=== PATIENT | female | born 1960 | race Caucasian/White ===

== ENCOUNTER → 2017-08-11 | Outpatient (CLI) | payer BC ==
--- NOTE | 2017-08-11 17:55 | US ---
EXAMINATION TYPE: US extremity nonvasculr ltd RT DATE OF EXAM: 08/11/2017 COMPARISON: NONE CLINICAL HISTORY: M71.21 Bakers Cyst, Rt Knee. Intermittent right popliteal fossa pain x multiple yea rs Right pop fossa: appears wnl, no Good's cyst seen at this time IMPRESSION: There is no evidence of a popliteal cyst or any other solid or cystic mass in the poplit eal fossa. The popliteal vein is patent.
== END | disposition home or self-care (01) ==
LOC: RADUSMAIN 16:56
PROVIDERS: ATTEND Family Medicine
DX: M71.21 Synovial cyst of popliteal space [Baker], right knee (principal)

== ENCOUNTER 2021-05-10 13:38 | Emergency (ER) | payer BC, OTHER ==
[2021-05-10 16:39] VITALS: BP 120/82; RESP 16; TEMP 98
--- NOTE | 2021-05-10 17:05 | XR ---
EXAMINATION TYPE: XR wrist complete RT DATE OF EXAM: 05/10/2021 CLINICAL HISTORY: Pain TECHNIQUE: Frontal, lateral and oblique images of the right wrist are obtained. COMPARISON: None FINDINGS: There is a transverse fracture of the distal radius with intra-articular extension and fore shortening. There is circumferential soft tissue swelling of the wrist. IMPRESSION: Transverse fracture of the distal radius with intra-articular extension and foreshortened .
[2021-05-10] MEDS ORDERED: KETOROLAC 30 MG/ML 1 ML VIAL IM STA (19:12)
[2021-05-10] MEDS ORDERED: ACET/COD 300 MG/30 MG STARTER PACK 6 TAB BTL PO STA (19:12)
[2021-05-10] MEDS ORDERED: BUPIVACAINE (PF) 0.5% 30 ML VIAL SQ STA (19:12)
[2021-05-10] MEDS ORDERED: LIDOCAINE 1% INJ 10MG/ML (20 ML MDV) SQ ONE (19:12)
--- NOTE | 2021-05-10 19:16 | ED ---
Upper Extremity HPI - General Chief Complaint: Extremity Injury, Upper Stated Complaint: Head & wrist injury, [facility] Time Seen by Provider: 05/10/21 18:59 Source: patient Mode of arrival: ambulatory Limitations: no limitations - History of Present Illness Initial Comments: 60 year-old female patient presents to the emergency department for evaluation of right wrist pain. Patient states she fell at work, she believes on an outstretched hand. States she did hit her head. Denies any loss of consciousness, headache, vomiting, or visual changes. Denies any neck or back pain. Denies any other injuries. Has not taken any pain medications. - Related Data Home Medications Medication Instructions Recorded Confirmed Levothyroxine Sodium [Synthroid] 75 mcg PO DAILY 05/10/21 05/10/21 Metoprolol Succinate (ER) [Toprol 25 mg PO DAILY 05/10/21 05/10/21 Xl] amLODIPine [Norvasc] 10 mg PO DAILY 05/10/21 05/10/21 Previous Rx's Medication Instructions Recorded Acetaminophen-Codeine 300-30mg 1 tab PO Q6H PRN #12 tablet 05/10/21 [Tylenol #3] Ibuprofen [Motrin] 600 mg PO Q8HR PRN #30 tab 05/10/21 Allergies Allergy/AdvReac Type Severity Reaction Status Date / Time Penicillins AdvReac Vomiting Verified 05/10/21 20:06 Review of Systems ROS Statement: Those systems with pertinent positive or pertinent negative responses have been documented in the HPI. ROS Other: All systems not noted in ROS Statement are negative. Past Medical History Past Medical History: Hypertension, Thyroid Disorder History of Any Multi-Drug Resistant Organisms: None Reported Past Surgical History: Orthopedic Surgery Past Psychological History: No Psychological Hx Reported Smoking Status: Current every day smoker Past Alcohol Use History: Daily Past Drug Use History: None Reported General Exam Limitations: no limitations General appearance: alert, in no apparent distress, other (This is a well- developed, well-nourished adult female in no acute distress.) Head exam: Present: atraumatic, normocephalic, normal inspection Eye exam: Present: normal appearance, PERRL, EOMI. Absent: scleral icterus, conjunctival injection, periorbital swelling ENT exam: Present: normal exam, normal oropharynx, mucous membranes moist Neck exam: Present: normal inspection, full ROM, other (Nontender, no step-off, no deformity to firm midline palpation of the posterior cervical spine. Full range of motion without pain or limitation.). Absent: tenderness, meningismus, lymphadenopathy Respiratory exam: Present: normal lung sounds bilaterally. Absent: respiratory distress, wheezes, rales, rhonchi, stridor Cardiovascular Exam: Present: regular rate, normal rhythm, normal heart sounds. Absent: systolic murmur, diastolic murmur, rubs, gallop, clicks Extremities exam: Present: tenderness (Distal radius and ulna), normal capillary refill, other (Soft tissue swelling over the distal radius and ulna. Limited range of motion due to pain. Radial pulses 2+. Skin is pink, warm, dry. Cap refill less than 3 seconds. The). Absent: normal inspection, full ROM, pedal edema, joint swelling, calf tenderness Back exam: Present: normal inspection, other (Nontender, no step-off, no deformity to firm midline palpation of the thoracic and lumbar vertebrae. Full range of motion without pain or limitation.). Absent: vertebral tenderness Neurological exam: Present: alert, oriented X3, CN II-XII intact Psychiatric exam: Present: normal affect, normal mood Skin exam: Present: warm, dry, intact, normal color. Absent: rash Course Vital Signs 05/10/21 05/10/21 16:36 20:17 Temperature 98 F Pulse Rate 78 88 Respiratory 16 16 Rate Blood Pressure 120/82 O2 Sat by Pulse 95 98 Oximetry Procedures - Orthopedic Fracture Reduction Fracture #1 Consent Obtained: verbal consent Side: right Fracture Reduction Location: radius Analgesia: hematoma block Technique: direct manipulation Post Reduction X-rays Demonstrate: acceptable reduction Post-Reduction Neuro Exam: intact, no change Post-Reduction Vascular Exam: intact, no change Splint Applied: Yes Patient Tolerated Procedure: well, no complications - Orthopedic Splinting/Casting Injury #1 Side: right Upper Extremity Injury Location: short arm, wrist Upper Extremity Immobilizer: sugar tong splint, Maykel wrap, synthetic pre-padded splint Medical Decision Making - Medical Decision Making 60-year-old female patient presents for evaluation of right wrist pain after a fall. Physical examination did reveal soft tissue swelling and tenderness over the wrist. Neurovascular status was intact. X-rays were obtained and showed evidence for a mildly displaced distal radius fracture. Hematoma block was performed, direct manipulation to reduce the fracture. Patient did have some pain with this. Sugar tong splint was applied, sling given. She will be discharged home to follow-up with talent management specialist for further evaluation as soon as possible. She is given pain medication. Return parameters were discussed in detail. She verbalizes understanding and agrees with this plan. Case discussed with my attending Dr. Romero. - Radiology Data Radiology results: report reviewed, image reviewed Three-view x-ray of the right wrist are obtained. Report was reviewed in its entirety. Impression by Dr. Mathew Roberts shows transverse fracture of the distal radius with intra-articular extension and foreshortened. 2 views of the right wrist are obtained for postreduction purposes. Report was reviewed in its entirety. Impression by Dr. Carmona shows improved alignment of mildly displaced distal radial metaphyseal fracture, now in cast. Disposition Clinical Impression: Fracture of right distal radius Disposition: HOME SELF-CARE Condition: Good Instructions (If sedation given, give patient instructions): Wrist Fracture in Adults (ED), Splint Care (ED) Additional Instructions: Leave splint in place until follow-up with orthopedics. Use sling for comfort and support. Take medications as directed. Follow-up with her primary care physician for recheck in 1-2 days. Follow up with orthopedic physician as soon possible for further evaluation. Return for any new, worsening, or concerning symptoms. Prescriptions: Ibuprofen [Motrin] 600 mg PO Q8HR PRN #30 tab PRN Reason: Pain Acetaminophen-Codeine 300-30mg [Tylenol #3] 1 tab PO Q6H PRN #12 tablet PRN Reason: Pain Is patient prescribed a controlled substance at d/c from ED?: Yes When asked, does pt state using other controlled substances?: No If prescribed controlled substance>3 days was MAPS reviewed?: Prescribed <3 Days If opioid is for acute pain is fill amount 7 days or less?: Yes If Rx opioid, was Start Talking consent form obtained?: Yes Referrals: Roxi Morris DO [Primary Care Provider] - 1-2 days Bjorn Gasca MD [Medical Doctor] - 1-2 days Time of Disposition: 19:52
--- NOTE | 2021-05-10 20:06 | XR ---
EXAMINATION TYPE: XR wrist limited RT DATE OF EXAM: 05/10/2021 CLINICAL HISTORY: Wrist fracture . TECHNIQUE: Frontal, lateral and oblique images of the right wrist are obtained. COMPARISON: Knee radiograph FINDINGS: Overlying cast material obscures fine bony detail. There is improved alignment of a mildly displaced distal radial metaphyseal fracture. IMPRESSION: Improved alignment of mildly displaced distal radial metaphyseal fracture, now in cast.
[2021-05-10 20:17] VITALS: PULSE 88
== END 2021-05-10 20:17 | disposition home or self-care (01) ==
LOC: EC 13:38
DX: S52.591A Other fractures of lower end of right radius, initial encounter for closed fracture (principal); I10 Essential (primary) hypertension; E07.9 Disorder of thyroid, unspecified; F17.200 Nicotine dependence, unspecified, uncomplicated; Z79.890 Hormone replacement therapy; Z88.0 Allergy status to penicillin; Z79.899 Other long term (current) drug therapy; W19.XXXA Unspecified fall, initial encounter; Y92.69 Other specified industrial and construction area as the place of occurrence of the external cause; Y99.0 Civilian activity done for income or pay
CPT/HCPCS: 73100; 73110; 99283; 96372; 25605; J2001; J1885

== ENCOUNTER 2021-10-18 10:34 | Inpatient (IN) | payer BC ==
[2021-10-18] MEDS ORDERED: NITROGLYCERIN SL TABS 0.4 MG TAB SUBLINGUAL STA ×3 (11:04)
[2021-10-18] MEDS ORDERED: ASPIRIN 81 MG PO STA (11:04)
--- NOTE | 2021-10-18 11:07 | ED ---
General Adult HPI - General Chief complaint: Chest Pain Stated complaint: chest pain x1 wk Time Seen by Provider: 10/18/21 10:51 Source: patient, RN notes reviewed Mode of arrival: ambulatory Limitations: no limitations - History of Present Illness Initial comments: Patient is a pleasant [age]-year-old female presenting to the emergency Department with chest discomfort. Symptoms have been occurring for the past week. Patient did have a syncopal episode a few days prior to onset of symptoms. Discomfort feels like pressure. Symptoms do worsen with exertion. Patient does have some associated shortness of breath. No sweating. Mild nausea. Discomfort is somewhat severe at this point. No history of chronic similar symptoms. No leg pain or leg swelling. No back pain. - Related Data Home Medications Medication Instructions Recorded Confirmed Levothyroxine Sodium [Synthroid] 75 mcg PO DAILY 05/10/21 10/18/21 Metoprolol Succinate (ER) [Toprol 25 mg PO DAILY 05/10/21 10/18/21 Xl] amLODIPine [Norvasc] 10 mg PO DAILY 05/10/21 10/18/21 Aspirin EC [Ecotrin Low Dose] 81 mg PO DAILY 10/18/21 10/18/21 Allergies Allergy/AdvReac Type Severity Reaction Status Date / Time Penicillins AdvReac Vomiting Verified 10/18/21 12:09 Review of Systems ROS Statement: Those systems with pertinent positive or pertinent negative responses have been documented in the HPI. ROS Other: All systems not noted in ROS Statement are negative. Constitutional: Denies: fever Eyes: Denies: eye pain ENT: Denies: ear pain Respiratory: Reports: as per HPI, dyspnea. Denies: cough Cardiovascular: Reports: as per HPI, chest pain Endocrine: Reports: fatigue Gastrointestinal: Denies: abdominal pain, vomiting Genitourinary: Denies: dysuria Musculoskeletal: Denies: back pain Skin: Denies: rash Neurological: Denies: confusion Past Medical History Past Medical History: Hypertension, Thyroid Disorder History of Any Multi-Drug Resistant Organisms: None Reported Past Surgical History: Orthopedic Surgery Past Psychological History: No Psychological Hx Reported Smoking Status: Current every day smoker Past Alcohol Use History: Daily Past Drug Use History: None Reported General Exam Limitations: no limitations General appearance: alert, in no apparent distress Head exam: Present: normocephalic Eye exam: Present: normal appearance Neck exam: Present: normal inspection Respiratory exam: Present: normal lung sounds bilaterally. Absent: chest wall tenderness Cardiovascular Exam: Present: regular rate, normal rhythm Expanded Peripheral pulses: 2+: Radial (R), Radial (L), Dorsalis Pedis (R), Dorsalis Pedis (L) GI/Abdominal exam: Present: soft. Absent: tenderness Extremities exam: Present: normal inspection. Absent: pedal edema, calf tenderness Neurological exam: Present: alert Psychiatric exam: Present: normal affect, normal mood Skin exam: Present: normal color Course Vital Signs 10/18/21 10/18/21 10:46 11:10 Temperature 98.1 F Pulse Rate 88 77 Respiratory 18 16 Rate Blood Pressure 117/76 124/84 O2 Sat by Pulse 94 L 98 Oximetry EKG Findings - EKG Comments: EKG Findings:: Sinus rhythm with rate of 84. GA 185. QRS 92. QT 383. QTC 423. Left axis. Incomplete right bundle-branch block. Inferior T wave inversions. She is inversions V3 through V5 as well with downward QRS Medical Decision Making - Medical Decision Making Patient reevaluated and still having discomfort. Case discussed with Dr. Natali carreon, who will admit for Dr. Morris. - Lab Data Result diagrams: 10/18/21 11:09 10/18/21 12:14 Lab Results 10/18/21 10/18/21 10/18/21 Range/Units 11:09 11:09 11:09 WBC 7.2 (3.8-10.6) k/uL RBC 4.92 (3.80-5.40) m/uL Hgb 16.9 H (11.4-16.0) gm/dL Hct 52.7 H (34.0-46.0) % MCV 107.2 H (80.0-100.0) fL MCH 34.4 (25.0-35.0) pg MCHC 32.1 (31.0-37.0) g/dL RDW 14.1 (11.5-15.5) % Plt Count 224 (150-450) k/uL MPV 7.4 Neutrophils % 76 % Lymphocytes % 14 % Monocytes % 6 % Eosinophils % 2 % Basophils % 1 % Neutrophils # 5.5 (1.3-7.7) k/uL Lymphocytes # 1.0 (1.0-4.8) k/uL Monocytes # 0.4 (0-1.0) k/uL Eosinophils # 0.1 (0-0.7) k/uL Basophils # 0.1 (0-0.2) k/uL Macrocytosis Moderate PT 11.0 (9.0-12.0) sec INR 1.0 (<1.2) APTT 24.1 (22.0-30.0) sec D-Dimer 0.43 (<0.60) mg/L FEU Sodium (137-145) mmol/L Potassium (3.5-5.1) mmol/L Chloride (98-107) mmol/L Carbon Dioxide (22-30) mmol/L Anion Gap mmol/L BUN (7-17) mg/dL Creatinine (0.52-1.04) mg/dL Est GFR (CKD-EPI)AfAm (>60 ml/min/1.73 sqM) Est GFR (CKD-EPI)NonAf (>60 ml/min/1.73 sqM) Glucose (74-99) mg/dL Calcium (8.4-10.2) mg/dL Magnesium (1.6-2.3) mg/dL Total Bilirubin (0.2-1.3) mg/dL AST (14-36) U/L ALT (4-34) U/L Alkaline Phosphatase (38-126) U/L Troponin I (0.000-0.034) ng/mL NT-Pro-B Natriuret Pep 66 pg/mL Total Protein (6.3-8.2) g/dL Albumin (3.5-5.0) g/dL Amylase (30-110) U/L Lipase (23-300) U/L 10/18/21 10/18/21 Range/Units 12:14 12:14 WBC (3.8-10.6) k/uL RBC (3.80-5.40) m/uL Hgb (11.4-16.0) gm/dL Hct (34.0-46.0) % MCV (80.0-100.0) fL MCH (25.0-35.0) pg MCHC (31.0-37.0) g/dL RDW (11.5-15.5) % Plt Count (150-450) k/uL MPV Neutrophils % % Lymphocytes % % Monocytes % % Eosinophils % % Basophils % % Neutrophils # (1.3-7.7) k/uL Lymphocytes # (1.0-4.8) k/uL Monocytes # (0-1.0) k/uL Eosinophils # (0-0.7) k/uL Basophils # (0-0.2) k/uL Macrocytosis PT (9.0-12.0) sec INR (<1.2) APTT (22.0-30.0) sec D-Dimer (<0.60) mg/L FEU Sodium 139 (137-145) mmol/L Potassium 4.2 (3.5-5.1) mmol/L Chloride 109 H (98-107) mmol/L Carbon Dioxide 27 (22-30) mmol/L Anion Gap 3 mmol/L BUN 9 (7-17) mg/dL Creatinine 0.44 L (0.52-1.04) mg/dL Est GFR (CKD-EPI)AfAm >90 (>60 ml/min/1.73 sqM) Est GFR (CKD-EPI)NonAf >90 (>60 ml/min/1.73 sqM) Glucose 100 H (74-99) mg/dL Calcium 8.3 L (8.4-10.2) mg/dL Magnesium 2.0 (1.6-2.3) mg/dL Total Bilirubin 0.8 (0.2-1.3) mg/dL AST 75 H (14-36) U/L ALT 66 H (4-34) U/L Alkaline Phosphatase 91 (38-126) U/L Troponin I 0.013 (0.000-0.034) ng/mL NT-Pro-B Natriuret Pep pg/mL Total Protein 6.3 (6.3-8.2) g/dL Albumin 3.6 (3.5-5.0) g/dL Amylase 42 (30-110) U/L Lipase 73 (23-300) U/L Disposition Clinical Impression: Chest pain Disposition: ADMITTED IP TO THIS HOSP Is patient prescribed a controlled substance at d/c from ED?: No Referrals: Roxi Morris DO [Primary Care Provider] - 1-2 days Time of Disposition: 13:57
--- NOTE | 2021-10-18 11:22 | XR ---
EXAMINATION TYPE: XR chest 2V DATE OF EXAM: 10/18/2021 COMPARISON: NONE HISTORY: Chest pain and shortness of breath for one week. TECHNIQUE: Frontal and lateral views of the chest are obtained. FINDINGS: There is no suspicious focal air space opacity, pleural effusion, or pneumothorax seen. T he cardiac silhouette size is upper limits of normal. The osseous structures are intact. Overlying EKG leads. IMPRESSION: No acute process.
[2021-10-18 11:28] LABS: Basophils # (A) 0.1 k/uL (0-0.2); Basophils % (A) 1 %; Eosinophils # (A) 0.1 k/uL (0-0.7); Eosinophils % (A) 2 %; HCT 52.7 % (34.0-46.0); HGB 16.9 gm/dL (11.4-16.0); Lymphocytes % (A) 14 %; MCH 34.4 pg (25.0-35.0); MCHC 32.1 g/dL (31.0-37.0); MCV 107.2 fL (80.0-100.0); Macrocytosis Moderate; Mean Platelet Volume 7.4; Monocytes # (A) 0.4 k/uL (0-1.0); Monocytes % (A) 6 %; Neutrophils # (A) 5.5 k/uL (1.3-7.7); Neutrophils % (A) 76 %; Platelet Count 224 k/uL (150-450); RBC 4.92 m/uL (3.80-5.40); RDW 14.1 % (11.5-15.5); WBC 7.2 k/uL (3.8-10.6)
[2021-10-18 11:44] LABS: Partial Thromboplastin Time 24.1 sec (22.0-30.0)
[2021-10-18 12:47] LABS: ALT 66 U/L (4-34); AST 75 U/L (14-36); African American GFR (CKD) >90 (>60 ml/min/1.73 sqM); Albumin 3.6 g/dL (3.5-5.0); Alkaline Phosphatase 91 U/L (38-126); Amylase 42 U/L (30-110); Anion Gap 3 mmol/L; Blood Urea Nitrogen 9 mg/dL (7-17); Calcium 8.3 mg/dL (8.4-10.2); Carbon Dioxide 27 mmol/L (22-30); Chloride 109 mmol/L (98-107); Glucose 100 mg/dL (74-99); Lipase 73 U/L (23-300); Non-African American GFR(CKD) >90 (>60 ml/min/1.73 sqM); Sodium 139 mmol/L (137-145); Total Bilirubin 0.8 mg/dL (0.2-1.3); Total Protein 6.3 g/dL (6.3-8.2)
[2021-10-18 13:05] LABS: Potassium 4.2 mmol/L (3.5-5.1)
[2021-10-18] MEDS ORDERED: MORPHINE SULFATE 4 MG/ML SYRINGE IVP STA (13:58)
[2021-10-18] MEDS ORDERED: NITROGLYCERIN SL TABS 0.4 MG TAB SUBLINGUAL PRN (13:58)
[2021-10-18] MEDS: NITROGLYCERIN OINT 1 INCH/GM PACKET TOPICAL SCH ×2 (18:58→23:51)
[2021-10-19] MEDS: NITROGLYCERIN OINT 1 INCH/GM PACKET TOPICAL SCH (05:33)
[2021-10-19] MEDS ORDERED: CAFFEINE CITRATE 60 MG/3 ML VIAL IV PRN (08:09)
[2021-10-19] MEDS ORDERED: REGADENOSON 0.4 MG/5 ML SYRINGE IV PRN (08:09)
[2021-10-19] MEDS ORDERED: AMINOPHYLLINE 500 MG/20 ML VIAL IV PRN (08:09)
[2021-10-19] MEDS ORDERED: ASPIRIN 325 MG TAB PO SCH (09:00)
--- NOTE | 2021-10-19 09:03 | P.CRDCN ---
History of Present Illness Consult date: 10/19/21 History of present illness: HISTORY OF PRESENT ILLNESS: This is a 61-year-old female with a past medical history significant for hypertension and hypothyroidism. Patient does not follow with a manager educational. We have been asked to see the patient in consultation for chest pain. Patient examined at the bedside. Patient states she presented to the hospital secondary to her whole body feeling numb. She states that this started in her mouth and then spread throughout her entire body. She also reports feeling chest pressure, dizziness, and diaphoresis. She also reports having an episode about a week ago where she states she passed out for a few hours. She denies any chest pain or pressure at this time. She reports a family history of cardiac disease in her father. * EKG reveals sinus mechanism with T-wave inversions in inferior and lateral leads. No previous EKG for available for comparison * Chest xray negative for acute process * Laboratory data: WBC 7.2. Hemoglobin 16.9. Platelet count 224. D-dimer 0.43. Sodium 139. Potassium 4.2. BUN 9. Creatinine 0.44. Troponin negative 3. ProBNP 66. * Current home cardiac medications include amlodipine 10 mg daily, aspirin 81 mg daily, and metoprolol succinate 25 mg daily * Most recent echocardiogram obtained in 2015 revealed ejection fraction 55-60% with trace MR * Patient underwent Cardiolite stress test in 2015 which was negative for ischemia REVIEW OF SYSTEMS: At the time of my exam: CONSTITUTIONAL: Denies fever or chills. HEENT: Denies blurred vision, vision changes, or eye pain. Denies hemoptysis CARDIOVASCULAR: Denies chest pain. Denies orthopnea. Denies PND. Denies palpitations RESPIRATORY: Denies shortness of breath. GASTROINTESTINAL: Denies abdominal pain. Denies nausea or vomiting. HEMATOLOGIC: Denies bleeding disorders. GENITOURINARY: Denies any blood in urine. SKIN: Denies pruitis. Denies rash. PHYSICAL EXAM: VITAL SIGNS: Reviewed. GENERAL: Well-developed in no acute distress. HEENT: Head is normocephalic. Pupils are equal, round. Sclerae anicteric. Mucous membranes of the mouth are moist. Neck supple. No JVD or thyromegaly LUNGS: Respirations even and unlabored. Lungs essentially clear to auscultation bilaterally. HEART: Regular rate and rhythm. S1 and S2 heard. ABDOMEN: Soft. Nondistended. Nontender. EXTREMITIES: Normal range of motion. No clubbing or cyanosis. Peripheral pulses intact. No lower extremity edema NEUROLOGIC: Awake and alert. Oriented x 3. ASSESSMENT: Chest pain, troponins negative 3 Generalized numbness Hypertension Hypothyroidism PLAN: Acute coronary event has been ruled out Resume home cardiac medications Obtain 2-D echo to assess cardiac structure and function Patient to undergo Lexiscan stress test today to assess for ischemia Further recommendations pending patient's course Nurse practitioner note has been reviewed by physician. Signing provider agrees with the documented findings, assessment, and plan of care. Past Medical History Past Medical History: Hypertension, Thyroid Disorder History of Any Multi-Drug Resistant Organisms: None Reported Past Surgical History: Orthopedic Surgery Past Psychological History: No Psychological Hx Reported Smoking Status: Current every day smoker Past Alcohol Use History: Daily Past Drug Use History: None Reported Medications and Allergies Home Medications Medication Instructions Recorded Confirmed Type Levothyroxine Sodium [Synthroid] 75 mcg PO DAILY 05/10/21 10/18/21 History Metoprolol Succinate (ER) [Toprol 25 mg PO DAILY 05/10/21 10/18/21 History Xl] amLODIPine [Norvasc] 10 mg PO DAILY 05/10/21 10/18/21 History Aspirin EC [Ecotrin Low Dose] 81 mg PO DAILY 10/18/21 10/18/21 History Allergies Allergy/AdvReac Type Severity Reaction Status Date / Time Penicillins AdvReac Vomiting Verified 10/18/21 12:09 Physical Exam Vitals: Vital Signs Temp Pulse Pulse Resp BP BP Pulse Ox 10/19/21 07:00 98.2 F 77 18 104/66 94 L 10/19/21 02:50 98.3 F 85 18 109/70 94 L 10/18/21 22:12 98.0 F 72 17 108/63 94 L 10/18/21 18:00 82 16 129/83 97 10/18/21 17:30 79 16 131/90 97 10/18/21 17:00 95 16 119/73 96 10/18/21 16:30 78 16 122/77 96 10/18/21 16:00 79 20 133/92 96 10/18/21 15:30 78 15 132/85 97 10/18/21 15:00 81 21 131/85 97 05/09/22 14:30 77 16 139/86 97 10/18/21 14:00 80 16 133/97 98 10/18/21 13:30 77 16 131/87 98 10/18/21 13:00 80 18 118/80 98 10/18/21 12:30 79 16 113/69 98 10/18/21 12:00 80 18 120/73 98 10/18/21 11:30 84 16 124/84 98 10/18/21 11:10 77 16 124/84 98 10/18/21 10:46 98.1 F 88 18 117/76 94 L Intake and Output 10/18/21 10/19/21 10/19/21 22:59 06:59 14:59 Other: # Voids 1 2 Results 10/18/21 11:09 10/18/21 12:14 Cardiac Enzymes 10/18/21 10/18/21 10/18/21 Range/Units 12:14 12:14 15:07 AST 75 H (14-36) U/L Troponin I 0.013 <0.012 (0.000-0.034) ng/mL 10/18/21 Range/Units 18:59 AST (14-36) U/L Troponin I <0.012 (0.000-0.034) ng/mL Coagulation 10/18/21 Range/Units 11:09 PT 11.0 (9.0-12.0) sec APTT 24.1 (22.0-30.0) sec CBC 10/18/21 Range/Units 11:09 WBC 7.2 (3.8-10.6) k/uL RBC 4.92 (3.80-5.40) m/uL Hgb 16.9 H (11.4-16.0) gm/dL Hct 52.7 H (34.0-46.0) % Plt Count 224 (150-450) k/uL Comprehensive Metabolic Panel 10/18/21 Range/Units 12:14 Sodium 139 (137-145) mmol/L Potassium 4.2 (3.5-5.1) mmol/L Chloride 109 H (98-107) mmol/L Carbon Dioxide 27 (22-30) mmol/L BUN 9 (7-17) mg/dL Creatinine 0.44 L (0.52-1.04) mg/dL Glucose 100 H (74-99) mg/dL Calcium 8.3 L (8.4-10.2) mg/dL AST 75 H (14-36) U/L ALT 66 H (4-34) U/L Alkaline Phosphatase 91 (38-126) U/L Total Protein 6.3 (6.3-8.2) g/dL Albumin 3.6 (3.5-5.0) g/dL Current Medications Generic Name Dose Route Start Last Admin Trade Name Freq PRN Reason Stop Dose Admin Aspirin 325 mg 10/19/21 09:00 Aspirin 325 Mg Tab PO DAILY JB Nitroglycerin 0.4 mg 10/18/21 13:58 Nitroglycerin Sl Tabs 0.4 Mg Tab SUBLINGUAL Q5M PRN Chest Pain Nitroglycerin 1 inch 10/18/21 18:00 10/19/21 05:33 Nitroglycerin Oint 1 Inch/Gm Packet TOPICAL Not Given Q6HR JB Intake and Output 10/18/21 10/19/21 10/19/21 22:59 06:59 14:59 Other: # Voids 1 2 10/18/21 11:09 10/18/21 12:14
[2021-10-19 09:44] LABS: Chol/HDL Ratio 3.11 Ratio; LDL Cholesterol,Calculated 97.3 mg/dL (0.0-131.0)
--- NOTE | 2021-10-19 10:43 | CA ---
Transthoracic Echo Report Name: Josee Mace Age: 61 Gender: F : 1960 Exam Date: 10/19/2021 07:56 Exam Location: [place] [facility] Ht (in): 65 Wt (lb): 140 Ordering Physician: Eduardo Garcia DO Attending/Referring Phys: Belt Loop Cutter Alexia Hernadnez RDCS Procedure CPT: Indications: cp, syncope Cardiac Hx: Fm hx of heart disease Technical Quality: Good Contrast 1: Total Dose (mL): Contrast 2: Total Dose (mL): MEASUREMENTS (Male / Female) Normal Values 2D ECHO LV Diastolic Diameter PLAX 4.3 cm 4.2 - 5.9 / 3.9 - 5.3 cm LV Systolic Diameter PLAX 2.6 cm IVS Diastolic Thickness 1.0 cm 0.6 - 1.0 / 0.6 - 0.9 cm LVPW Diastolic Thickness 1.1 cm 0.6 - 1.0 / 0.6 - 0.9 cm LV Relative Wall Thickness 0.5 RV Internal Dim ED PLAX 2.3 cm M-MODE Aortic Root Diameter MM 3.0 cm LA Systolic Diameter MM 2.6 cm LA Ao Ratio MM 0.9 MV E Point Septal Separation 0.8 cm AV Cusp Separation MM 2.1 cm DOPPLER AV Peak Velocity 114.6 cm/s AV Peak Gradient 5.3 mmHg MV Area PHT 3.6 cm??? MR Peak Velocity 110.3 cm/s MR Peak Gradient 4.9 mmHg Mitral E Point Velocity 72.9 cm/s Mitral A Point Velocity 98.2 cm/s Mitral E to A Ratio 0.7 MV Deceleration Time 211.1 ms MV E' Velocity 7.0 cm/s Mitral E to MV E' Ratio 10.4 TR Peak Velocity 166.4 cm/s TR Peak Gradient 11.1 mmHg Right Ventricular Systolic Press 15.2 mmHg FINDINGS Left Ventricle Mildly increased posterior wall thickness. Left ventricular ejection fraction is estimated at 55-60left ventricular cavity size normal. %. Right Ventricle The right ventricle is normal in size and function. Right Atrium The right atrium is normal in size. Left Atrium The left atrium is normal in size. Mitral Valve Structurally normal mitral valve without significant stenosis or prolapse. There is a trace of mitral regurgitation. Aortic Valve Structurally normal aortic valve without significant sclerosis or stenosis. There is no aortic regurgitation. Tricuspid Valve Structurally normal tricuspid valve without significant stenosis. Pulmonary artery systolic pressure is normal. Trace tricuspid regurgitation. Pulmonic Valve Structurally normal pulmonic valve without significant stenosis. There is no pulmonic regurgitation. Pericardium Normal pericardium without effusion. Aorta Normal aortic root dimension. CONCLUSIONS Normal LV systolic function Previewed by: Dr. Nicholas Horne MD (Electronically Signed) Final Date: 19 Oct 2021 10:42
--- NOTE | 2021-10-19 12:11 | CA ---
Lexiscan Nuclear Stress Test Report Name: Josee Mace Exam Date: 10/19/2021 10:53 Exam Location: [facility] Stress Ht (in): 65 Wt (lb): 140 BSA: 1.70 Ordering Phys: Sheila Conner Referring Phys: FELI, Technologist: Jordan Narayan Age: 61 Gender: F : 1960 Procedure CPT: Indications: Reflex order-Stress test ICD-10 Codes: Patient History: CHEST PRESSURE, DIFFICULTY IN BREATHING, NUMBNESS IN FACE/NECK, HTN, FAMILY HX OF HEART DISEASE, TOBACCO SMOKER - 1 PPD X 45 YEARS. Medications: METOPROLOL, LEVOTHYROXINE, AMLODIPINE, ASA 81 MG Meds past 24 hrs: Pretest Chest Pain: CHEST PRESSURE STRESS TEST Lexiscan Protocol Exercise Duration (min:sec): 01:[address] Depressions (mm): Angina Score: Hummel Score: Resting HR (bpm): 71 Peak HR (bpm): 108 Resting BP (mmHg): 120 / 81 Peak BP (mmHg): 133 / 85 MPHR: 159 Target HR: 135 % MPHR: 68 METS: 1.0 Total Dose: Peak Dose: Atropine: Double Product: 25847 BP Response: Stress Termination: Stress Symptoms: CHEST PRESSURE "10" Stress Summary: ECG ANALYSIS Resting ECG: Normal sinus rhythm with poor R progression Stress ECG: No significant ST segment depression CONCLUSIONS Negative stress test by EKG criteria Cardiolite portion of the stress test will be reported separately Dr. Nicholas Horne MD (Electronically Signed) Final Date: 19 Oct 2021 12:10
--- NOTE | 2021-10-19 12:28 | NM ---
EXAMINATION TYPE: NM stress lexiscan cardiolite DATE OF EXAM: 10/19/2021 COMPARISON: 01/09/2015 HISTORY: 61-year-old female with chest pain, vertigo TECHNIQUE: After the intravenous administration of 9.7 mCi Tc 99m Sestamibi - Cardiolite resting SPE CT images acquired 90 minutes post injection. The patient received 0.4mg Lexiscan, 24.1 mCi Tc 99m Sestamibi - Stress images obtained [address] injection FINDINGS: Technologist note: At the 2 minute recovery period, the patient complained of a '10' chest pain. Ches t pain improved at the 5 minute recovery time enoch. Review of stress and rest SPECT images demonstrates a small area of fixed defect along the apex which is more pronounced on rest, suggesting artifact. Also, decreased activity along the mid to apical an teroseptal wall is noted on rest suggesting attenuation artifact. Otherwise, no distinct perfusion ab normality on stress. Gated analysis shows normal wall motion with an estimated left ventricular ejec tion fraction of 70 %. TID calculated at 1.02, within normal limits. IMPRESSION: 1. Some defects on the rest images suggest areas of attenuation artifact. 2. No scintigraphic evidence for reversible ischemia. 3. As the patient complained of a '10' chest pain during the exam, further workup/evaluation as clini dayron indicated.
[2021-10-19] MEDS: amLODIPine 10 MG TAB PO SCH (12:36)
[2021-10-19] MEDS: METOPROLOL SUCCINATE (ER) 25 MG TAB.ER.24H PO SCH (12:36)
[2021-10-19] MEDS: ASPIRIN 81 MG PO SCH (12:36)
--- NOTE | 2021-10-19 14:55 | CT ---
EXAMINATION TYPE: CT brain wo con DATE OF EXAM: 10/19/2021 COMPARISON: None available HISTORY: ams following fall CT DLP: 1108.4 mGycm Automated exposure control for dose reduction was used. TECHNIQUE: CT scan of the brain is performed without IV contrast administration. FINDINGS: Chronic infarct is seen in the head of the right caudate nucleus. Bilateral cerebral white matter hyp odensities, likely representing chronic microvascular ischemic changes. Scattered arterial atheroscle rotic calcifications. No acute intracranial hemorrhage. No gross acute cortical infarct. No midline shift, herniation or ve ntriculomegaly. Unremarkable romero-white matter differentiation, basal cisterns, sella and CP angles. No gross space-o ccupying lesion, vasogenic edema or mass effect. Unremarkable orbits. Clear visualized paranasal sinuses and mastoid air cells. Unremarkable calvarial bones. Left temporal scalp focal skin thickening measuring 10 mm (image #13, series 9), please corre late clinically. IMPRESSION: No acute intracranial intracranial posttraumatic sequela or acute calvarial bone fracture. Chronic an d incidental findings as described above.
--- NOTE | 2021-10-19 19:10 | P.CNNES ---
History of Present Illness Consult date: 10/19/21 Requesting physician: Jennifer Vasquez Reason for Consult: head to toe numbness and tingling post fall History of Present Illness: This is a 61-year-old woman with medical history the of hypertension, hypothyroidism presented emergency department on 10/18/2020 for test discomfort. Neurologist consulted for numbness and tingling of entire body. According to the patient that she noticed that she had numbness and tingling of entire body about 10 days ago. She stated it started around the mouth then involved the hands than it felt it involved the whole body. She knows that over the 10 days ago and progressively getting worse. She also had a syncopal episode where she was found down on the kitchen by her also about 10 days ago and she does not recall she had the numbness prior or after. She stated that that she usually goes to bed around 10 PM and the she goes to the kitchen around 8-8:30pm and her found on the floor but she denies any urinary or bowel incontinence or tongue bite. She denies being told that she was a having any jerk in of any extremity. She denies any previous syncopal episodes or any history of seizures. She denies any sick contacts. Denies of any fever. Denies of any headache, any neck pain. Denies of any focal weakness. Denies any history of stroke. She does smoke on a daily basis about a half a pack a day. She socially drinks alcohol. She denies any illicit drug use. She is on home dose of aspirin 81 mg daily. Of note patient stated that she had a mechanical fall in the fall of 2020 while at work and broke her right wrist and she stated that it did not heal properly as a result she has the distal right upper extremity weakness. Some of the workup consisted of: CT of the head is reported as no acute intracranial posttraumatic sequela or acute Juliet the area and bone fracture. Chronic an incidental finding. The body the port is mentioned the patient has chronic infarct is seen in the head of the right caudate nucleus. Personally reviewed that a CT of the head and I agree with the report. 2-D echo was reported as normal left ventricle spell function. Left atrium was normal size. Stressed Luxiq can test is reported as no evidence for reversible ischemia. Lipid panel is triglyceride of 97, cholesterol is 172, LDL is 97, HDL of 55. Review of Systems Review of system: The 12 point system was reviewed and apparent positive and negative per HPI. Past Medical History Past Medical History: Hypertension, Thyroid Disorder History of Any Multi-Drug Resistant Organisms: None Reported Past Surgical History: Orthopedic Surgery Past Psychological History: No Psychological Hx Reported Smoking Status: Current every day smoker Past Alcohol Use History: Daily Past Drug Use History: None Reported Medications and Allergies Home Medications Medication Instructions Recorded Confirmed Type Levothyroxine Sodium [Synthroid] 75 mcg PO DAILY 05/10/21 10/18/21 History Metoprolol Succinate (ER) [Toprol 25 mg PO DAILY 05/10/21 10/18/21 History Xl] amLODIPine [Norvasc] 10 mg PO DAILY 05/10/21 10/18/21 History Aspirin EC [Ecotrin Low Dose] 81 mg PO DAILY 10/18/21 10/18/21 History Allergies Allergy/AdvReac Type Severity Reaction Status Date / Time Penicillins AdvReac Vomiting Verified 10/18/21 12:09 Physical Examination - Vital Signs Vital Signs: Vital Signs Temp Pulse Resp BP Pulse Ox 10/19/21 15:00 97.9 F 83 18 108/67 93 L 10/19/21 14:16 95 10/19/21 07:00 98.2 F 77 18 104/66 94 L 10/19/21 02:50 98.3 F 85 18 109/70 94 L 10/18/21 22:12 98.0 F 72 17 108/63 94 L Intake and Output 10/19/21 10/19/21 10/19/21 06:59 14:59 22:59 Intake Total 120 Balance 120 Intake: Oral 120 Other: # Voids 2 1 GENERAL: The patient is lying in bed and is not in acute distress. CHEST: The heart rate is regular rate rhythm. No murmurs to auscultation. No carotid bruit bilaterally. LUNG: Clear to auscultation bilaterally no wheezing noted throughout. Not labored breathing. ABDOMEN/GI: Bowel sounds present in all 4 quadrants. No tenderness to palpation throughout. NEUROLOGICAL: Higher mental function: The patient is awake, alert, oriented to self, place and time. Patient is following commands. No aphasia and no neglect. Cranial nerves: The pupils are round, equal and reactive to light and accommodation. Visual huerta are full to confrontation throughout. Extraocular movement is intact no nystagmus is noted. Facial sensation is normal to touch throughout. The facial strength is normal throughout. Hearing is normal bilaterally to hand rub. Tongue is midline and moved [id number] without any difficulty. No dysarthria is noted. Shoulder shrug is normal bilaterally. Motor: Gait is deferred. The strength is 5 over 5 throughout. Limited strength testing over the right hand since had old fracture Normal tone and bulk. Cerebellum: Normal finger to nosebilaterally. Sensation: Sensation is normal to touch throughout. Reflexes (right/left): 1+ throughout uppers except left triceps is 1-2+. Lowers are 0 throughout (has artificial right knee). Plantars are mute bilaterally. Results - Laboratory Findings CBC and BMP: 10/18/21 11:09 10/18/21 12:14 Abnormal Lab Findings: Abnormal Labs 10/18/21 10/18/21 11:09 12:14 Hgb 16.9 H Hct 52.7 H MCV 107.2 H Chloride 109 H Creatinine 0.44 L Glucose 100 H Calcium 8.3 L AST 75 H ALT 66 H Assessment and Plan Assessment: Paresthesia of the entire body for the last 10 days and has areflexia in lowers: Rule out Acute inflammatory demylinating polyneuropathy. 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 If above are negative will pursue with Lumbar puncture. Recommend EMG with NCS as outpatient. Continue aspirin 81 mg. In addition I start the patient on Lipitor 10 mg daily at bedtime for secondary stroke prophylaxis Ordered routine EEG because of her syncopal episode. Started the patient on Gabapentin 100mg 1 tab tid. Every 4 hours neuro checks Cardiology is on board Patient was counseled on tobacco cessation for 3 minutes. We'll defer the rest of the medical management to the primary team The plan is discussed with patient and her nurse. Thank you for the consultation. Nnamdi Apple M.D. Neuro-hospitalist Time with Patient: Greater than 30
[2021-10-19 20:13] LABS: Ionized Calcium 5.2 mg/dL (4.5-5.3)
[2021-10-19] MEDS: ATORVASTATIN 10 MG TAB PO SCH (21:06)
[2021-10-19] MEDS: GABAPENTIN 100 MG CAP PO SCH (21:07)
[2021-10-20 04:17] LABS: Protein, Total 6.2 g/dL (6.2-8.2)
[2021-10-20] MEDS: ASPIRIN 81 MG PO SCH (07:33)
[2021-10-20] MEDS: amLODIPine 10 MG TAB PO SCH (07:33)
[2021-10-20] MEDS: GABAPENTIN 100 MG CAP PO SCH ×3 (07:33→21:33)
[2021-10-20] MEDS: METOPROLOL SUCCINATE (ER) 25 MG TAB.ER.24H PO SCH (07:33)
--- NOTE | 2021-10-20 09:02 | P.HPIM ---
History of Present Illness H&P Date: 10/19/21 Josee Mace is a 61 yo F with PMH of HTN, HLD, tobacco abuse who presented to the ED complaining of chest pain. She states that approximately 10 days ago she had a syncopal event in her kitchen and around that time she started to experience numbness that started around her face and spread throughout her entire body. She continues to complain of reduced sensation today. She did not go to the hospital but scheduled a visit with her PCP. She states that she began to experience chest pain in the last day or two so came to the ED. She currently complains of mild chest pain and generalized numbness. Denies shortness of breath, diaphoresis, nausea, vomiting, tremor. On presentation vitals stable; CT of the head is reported as no acute process, chronic sequalae of previous stroke. Labs remarkable for mildly elevated LFTs and trop negative. She does endorse social alcohol use. Review of Systems All systems: negative Constitutional: Denies chills, Denies fever Eyes: denies blurred vision, denies pain Ears, nose, mouth and throat: Denies headache, Denies sore throat Cardiovascular: Reports chest pain, Denies shortness of breath Respiratory: Denies cough Gastrointestinal: Denies abdominal pain, Denies diarrhea, Denies nausea, Denies vomiting Genitourinary: Denies dysuria, Denies hematuria Musculoskeletal: Denies myalgias Integumentary: Denies pruritus, Denies rash Neurological: Denies numbness, Denies weakness Psychiatric: Denies anxiety, Denies depression Endocrine: Denies fatigue, Denies weight change Past Medical History Past Medical History: Hypertension, Thyroid Disorder History of Any Multi-Drug Resistant Organisms: None Reported Past Surgical History: Orthopedic Surgery Past Psychological History: No Psychological Hx Reported Smoking Status: Current every day smoker Past Alcohol Use History: Daily Past Drug Use History: None Reported Medications and Allergies Home Medications Medication Instructions Recorded Confirmed Type Levothyroxine Sodium [Synthroid] 75 mcg PO DAILY 05/10/21 10/18/21 History Metoprolol Succinate (ER) [Toprol 25 mg PO DAILY 05/10/21 10/18/21 History Xl] amLODIPine [Norvasc] 10 mg PO DAILY 05/10/21 10/18/21 History Aspirin EC [Ecotrin Low Dose] 81 mg PO DAILY 10/18/21 10/18/21 History Allergies Allergy/AdvReac Type Severity Reaction Status Date / Time Penicillins AdvReac Vomiting Verified 10/18/21 12:09 Physical Exam Vitals: Vital Signs Temp Pulse Resp BP Pulse Ox 10/20/21 07:43 16 10/20/21 07:00 97.7 F 65 16 115/71 93 L 10/20/21 02:00 97.7 F 74 18 114/74 92 L 10/19/21 20:00 97.4 F L 81 16 128/77 93 L 10/19/21 15:00 97.9 F 83 18 108/67 93 L 10/19/21 14:16 95 Intake and Output 10/19/21 10/20/21 10/20/21 22:59 06:59 14:59 Intake Total 240 118 Balance 240 118 Intake: Oral 240 118 Other: Voiding Method Toilet # Voids 1 1 General: well developed, well nourished, NAD HEENT: NC/AT, mmm Neck: supple, no JVD, no thyromegaly CV: RRR, no murmur Lungs: normal effort, clear throughout Abd: soft, nontender, non distended Neuro: alert and oriented x3, no focal deficits Skin: warm and dry Results CBC & Chem 7: 10/18/21 11:09 10/18/21 12:14 Assessment and Plan Plan: 1. Chest pain. ACS ruled out. Cardiology consulted for further evaluation. Lexiscan stress test ordered. Continue ASA and norvasc 2. Paresthesia. Question CVA vs spinal process. Neurology consult. MRI ordered. Start lipitor for previous stroke 3. HTN. Continue norvasc
[2021-10-20] MEDS: FOLIC ACID 1 MG TAB PO SCH (09:25)
--- NOTE | 2021-10-20 12:29 | P.PN ---
Subjective Progress Note Date: 10/20/21 Josee Mace is a 61 yo F with PMH of HTN, HLD, tobacco abuse who presented to the ED complaining of chest pain. She states that approximately 10 days ago she had a syncopal event in her kitchen and around that time she started to experience numbness that started around her face and spread throughout her entire body. She continues to complain of reduced sensation today. She did not go to the hospital but scheduled a visit with her PCP. She states that she began to experience chest pain in the last day or two so came to the ED. She currently complains of mild chest pain and generalized numbness. Denies shortness of breath, diaphoresis, nausea, vomiting, tremor. On presentation vitals stable; CT of the head is reported as no acute process, chronic sequalae of previous stroke. Labs remarkable for mildly elevated LFTs and trop negative. She does endorse social alcohol use. 10/20/2021 Low-dose gabapentin initiated yesterday ,reports ongoing chronic pain, chest pressure and weakness. Evaluated by cardiology and completed Lexiscan stress test, reporting patient complained of a "10" chest pain during the exam with further workup/evaluation recommended; reported no scientific graphic evidence of reversible ischemia. Evaluated by neurology -Neurology workup in progress with MRIs of brain/C-spine/lumbar spine, EEG pending. Potential lumbar puncture. Objective - Vital Signs Vital signs: Vital Signs Temp 97.7 F 10/20/21 07:00 Pulse 65 10/20/21 07:00 Resp 16 10/20/21 07:43 BP 115/71 10/20/21 07:00 Pulse Ox 93 L 10/20/21 07:00 Intake & Output 10/19/21 10/20/21 10/20/21 18:59 06:59 18:59 Intake Total 360 118 Balance 360 118 Intake: Oral 360 118 Other: Voiding Method Toilet # Voids 1 1 - Exam General: well developed, well nourished, NAD HEENT: NC/AT, mmm Neck: supple, no JVD, no thyromegaly CV: RRR, no murmur Lungs: normal effort, clear throughout Abd: soft, nontender, non distended Neuro: alert and oriented x3, no focal deficits Skin: warm and dry - Labs CBC & Chem 7: 10/18/21 11:09 10/18/21 12:14 Assessment and Plan Assessment: Chest pain, acute coronary syndrome ruled out, Lexiscan stress test reported negative STDs GI, possible CVA, possible spinal process, neurology workup in progress Hypertension Hypothyroidism Ongoing nicotine dependence Plan: Continue current medication regime ,monitoring and symptomatic treatment. Neurology workup in progress with MRIs of sprain/C-spine, lumbar spine and EEG pending. Smoking cessation reinforced. Discussed chronic pain management in clinic, continuing on Neurontin with possible addition of cymbalta, physical therapy OP. Discharge planning in progress pending completion of neuro workup, final DC recommendations and clearance per both cardiology and neurology. The impression and plan of care has been dictated as directed. : I performed a history and examination of this patient, discussed the same with the dictator. I agree with the dictator's note ,documented as a scribe. Any additional findings or plans will be noted.
--- NOTE | 2021-10-20 13:40 | P.PN ---
Subjective Progress Note Date: 10/20/21 The patient is seen at bedside and continues to be about the same. She denies of any upper or lower GI symptoms prior to her paresthesia. Denies of any recent vaccination. Objective - Vital Signs Vital signs: Vital Signs Temp 97.7 F 10/20/21 07:00 Pulse 65 10/20/21 07:00 Resp 16 10/20/21 07:43 BP 115/71 10/20/21 07:00 Pulse Ox 93 L 10/20/21 07:00 Intake & Output 10/19/21 10/20/21 10/20/21 18:59 06:59 18:59 Intake Total 360 118 Balance 360 118 Intake: Oral 360 118 Other: Voiding Method Toilet # Voids 1 1 - Exam GENERAL: The patient is lying in bed and is not in acute distress. NEUROLOGICAL: Higher mental function: The patient is awake, alert, oriented to self, place and time. Patient is following commands. No aphasia and no neglect. Cranial nerves: The pupils are round, equal and reactive to light and accommodation. Visual huerta are full to confrontation throughout. Extraocular movement is intact no nystagmus is noted. Facial sensation is normal to touch throughout. The facial strength is normal throughout. Hearing is normal bilaterally to hand rub. Tongue is midline and moved [id number] without any difficulty. No dysarthria is noted. Shoulder shrug is normal bilaterally. Motor: Gait is deferred. The strength is 5 over 5 throughout. Limited strength testing over the right hand since had old fracture Normal tone and bulk. Cerebellum: Normal finger to nosebilaterally. Sensation: Sensation is normal to touch throughout. Reflexes (right/left): 1+ throughout uppers except left triceps is 1-2+. Lowers are 0 throughout (has artificial right knee). Plantars are mute bilaterally. WORK-UP: Vitamin B12: 579 Folate: 4.60 TSH: 0.974 HbAc: 5.3 Ionized calcium is 5.2 CT of the head is reported as no acute intracranial posttraumatic sequela or acute Juliet the area and bone fracture. Chronic an incidental finding. The body the port is mentioned the patient has chronic infarct is seen in the head of the right caudate nucleus. Personally reviewed that a CT of the head and I agree with the report. 2-D echo was reported as normal left ventricle spell function. Left atrium was normal size. Stressed Luxiq can test is reported as no evidence for reversible ischemia. Lipid panel is triglyceride of 97, cholesterol is 172, LDL is 97, HDL of 55. - Labs CBC & Chem 7: 10/18/21 11:09 10/18/21 12:14 Assessment and Plan Assessment: Paresthesia of the entire body for the last 10 days and has areflexia in lowers: Rule out Acute inflammatory demylinating polyneuropathy. 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 If above are negative will pursue with Lumbar puncture. Low normal folate 4.6 (normal is 4.4-31): I started the patient on folic acid 1mg daily. Recommend EMG with NCS as outpatient. Continue aspirin 81 mg. Continue Lipitor 10 mg daily at bedtime for secondary s troke prophylaxis Pending routine EEG because of her syncopal episode. Continue Gabapentin 100mg 1 tab tid. Every 4 hours neuro checks Cardiology is on board We'll defer the rest of the medical management to the primary team The plan is discussed with patient and her nurse. Nnamdi Apple M.D. Neuro-hospitalist Time with Patient: Less than 30
--- NOTE | 2021-10-20 17:35 | MR ---
EXAMINATION TYPE: MR brain/cspine wo/w DATE OF EXAM: 10/20/2021 COMPARISON: None HISTORY: Parasthesia. CONTRAST: Standard multiplanar, multisequence MRI departmental protocol images were obtained without contrast a nd with 6 mL intravenous Gadavist gadolinium contrast. There is mild cerebral cortical atrophy. There is no mass effect or midline shift. There is no sign o f intracranial hemorrhage. Diffusion images show no sign of an acute infarct. There is 7 mm area of f luid signal anterior right caudate nucleus consistent with old lacunar infarct. There are a few scatt ered white matter high signal foci at the romero-white matter junction both cerebral hemispheres. Total number is less than 20.. Most of these are less than 4 mm. The brainstem is intact. Cerebellum is in tact. Corpus callosum is intact. Sella turcica appears normal. No evidence of orbital mass. There is degenerative disc space narrowing at C5-6 and C6-7. Cervical vertebrae have normal alignment . No compression fracture. There is mild posterior disc bulging at C3-4 and C5-6. Cervical spinal cor d shows fairly normal signal pattern. No edema. No significant spinal stenosis. Spinal canal measures 8.5 mm at C5-6 which is the narrowest point. No evidence of focal bone destruction. Contrast images of the cervical spine show no pathologic enhancement. Contrast images of the brain show no pathologic enhancement. There is normal enhancement of the venou s sinuses. Pituitary stalk appears deviated slightly to the right side but no sellar mass seen. This is of doubtful significance. IMPRESSION: Spondylotic changes in the cervical spine. No spinal stenosis. No fracture. Mild cerebral atrophy. White matter mild signal changes likely related to microvascular ischemia. I d o not see evidence for demyelinating disease. Old lacunar infarct right caudate nucleus.
--- NOTE | 2021-10-20 19:37 | EEG ---
ELECTROENCEPHALOGRAM REPORT DATE OF SERVICE: 10/20/2021. CLINICAL HISTORY: This is a 61-year-old woman with a syncopal episode about 2 to 3 weeks ago. The video EEG is obtained to evaluate for seizure epileptiform discharges. Relevant medication is gabapentin. EEG TYPE: A routine 21-channel EEG is performed with video using the 10/20 electrode placement system. DESCRIPTION: Wakefulness is only obtained. During awake state, the posterior-dominant rhythm consists of low to moderate voltage of 9.5 to 9 hertz activity that is well modulated and sustained. There is no physiological stage II sleep architecture. There is no focal slowing. Interictal and ictal is none. ACTIVATION PROCEDURE: Photic stimulation did not evoke a posterior driving response. There is no abnormality during the photic stimulation. Hyperventilation is not performed. CLINICAL INTERPRETATION: This is a normal routine EEG. There is no focal slowing, epileptiform discharges or seizure on the EEG. Clinical correlation is recommended. LAMAR / NICK: [id number] / [email or web address]
[2021-10-20] MEDS: ATORVASTATIN 10 MG TAB PO SCH (21:33)
[2021-10-21] MEDS: GABAPENTIN 100 MG CAP PO SCH ×3 (08:51→20:25)
[2021-10-21] MEDS: ASPIRIN 81 MG PO SCH (08:51)
[2021-10-21] MEDS: amLODIPine 10 MG TAB PO SCH (08:51)
[2021-10-21] MEDS: METOPROLOL SUCCINATE (ER) 25 MG TAB.ER.24H PO SCH (08:51)
[2021-10-21] MEDS: FOLIC ACID 1 MG TAB PO SCH (08:51)
[2021-10-21] MEDS: LEVOTHYROXINE 75 MCG TAB PO SCH (10:33)
[2021-10-21 11:25] LABS: Albumin 3.76 g/dL (3.80-4.90); Gamma Globulin 0.68 g/dL (0.70-1.50)
--- NOTE | 2021-10-21 12:44 | P.CNOR ---
History of Present Illness - [facility] Consult date: 10/21/21 Consult reason: other (Abnormal cervical spine MRI findings, bilateral lower extremity and upper extremity paresthesias) History of present illness: Patient is a 61-year-old female who presented to the hospital on 10/18/2021 with regards to chest pain, she is also limited to a syncopal episode about 10 days prior. Patient was admitted to [facility] under internal medicine with multiple medical specialties on consult. Since being admitted to the hospital, she also states she's had bilateral upper and lower extremity numbness and tingling for about 10 days. Neurology to evaluate patient, they've been doing multiple lab and imaging test. A cervical spine MRI was ordered, abnormal findings were noted in our orthopedic team was consulted. Patient was evaluated today at bedside, she is resting comfortably in her hospital bed, she appears to be no acute distress. She states that the numbness and tingling of the bilateral upper and lower extremities along with some facial numbness started about 10 days ago. She states that it is not cotton any better since being in the hospital. Patient denies any previous surgery of the cervical, thoracic or lumbar spine. She does have history of a right total knee arthroplasty that was done by Dr. Martino about 2 years ago. She also has history of a right distal radius fracture, she has follow-up with Dr. Laura in the outpatient setting and currently is in therapy. Patient currently denies any loss of bowel or bladder function. She does admit to numbness in the genital/buttock region. She states that the numbness that initially began more in the hands and feet, and is now progressed to the legs and arms. She states that over last Monday she has noticed progressive weakness in the lower extremities. She denies any obvious weakness in the upper extremities. She currently denies any headaches or lightheadedness. Patient has no other orthopedic complaints at this time. She states that she's never had issues with cervical, thoracic or lumbar pain. Review of Systems Constitutional: Reports as per HPI Past Medical History Past Medical History: Hypertension, Thyroid Disorder History of Any Multi-Drug Resistant Organisms: None Reported Past Surgical History: Orthopedic Surgery Past Psychological History: No Psychological Hx Reported Smoking Status: Current every day smoker Past Alcohol Use History: Daily Past Drug Use History: None Reported Medications and Allergies Home Medications Medication Instructions Recorded Confirmed Type Levothyroxine Sodium [Synthroid] 75 mcg PO DAILY 05/10/21 10/18/21 History Metoprolol Succinate (ER) [Toprol 25 mg PO DAILY 05/10/21 10/18/21 History XL] amLODIPine [Norvasc] 10 mg PO DAILY 05/10/21 10/18/21 History Aspirin EC [Ecotrin Low Dose] 81 mg PO DAILY 10/18/21 10/18/21 History Atorvastatin [Lipitor] 10 mg PO HS #30 tab 10/21/21 Rx DULoxetine HCL [Cymbalta] 20 mg PO DAILY #30 cap 10/21/21 Rx Folic Acid 1 mg PO DAILY tab 10/21/21 Rx Gabapentin [Neurontin] 100 mg PO TID #9 cap 10/21/21 Rx Allergies Allergy/AdvReac Type Severity Reaction Status Date / Time Penicillins AdvReac Vomiting Verified 10/18/21 12:09 Physical Examination Gen: AOx3, NAD VSS stable at this time Integument: No open lesions, areas of erythema in the cervical, thoracic or lumbar spine. There are no acute skin changes noted of the bilateral upper and lower extremities. Well-healed incision over the anterior aspect of the right knee Palpation: No tenderness is reproduced with palpation to the cervical, thoracic or lumbar midline or paraspinal region No point tenderness with palpation of bilateral upper and lower extremities ROM: Full range of motion in all major muscle groups of the bilateral upper extremities, no focal deficits appreciated Range of motion is intact in all major muscle groups of the bilateral lower ext remities, she does have difficulty with hip flexion Sensory Exam: Senory exam to light touch is intact C5-T1 Senosry exam to light touch is intact L2-S1 Motor: 55 strength appreciated in the bilateral upper extremities with shoulder elevation, shoulder abduction, elbow extension, elbow flexion, wrist extension, wrist flexion, policyholder information clerk 45 strength appreciated with plantar flexion, dorsiflexion, EHL, FHL bilaterally, 35 strength appreciated bilaterally with knee extension, knee flexion, hip flexion Reflexes: Negative Cristofer's bilaterally Negative clonus bilaterally Negative Babinski bilaterally Special Test: Logroll reproduces no pain in the bilateral lower extremities Results - Labs Labs: Abnormal Lab Results - Last 24 Hours (Table) 10/19/21 Range/Units 19:15 Albumin (PEP) 3.76 L (3.80-4.90) g/dL Gamma Globulins 0.68 L (0.70-1.50) g/dL H & H 10/18/21 Range/Units 11:09 Hgb 16.9 H (11.4-16.0) gm/dL Hct 52.7 H (34.0-46.0) % Coagulation 10/18/21 Range/Units 11:09 INR 1.0 (<1.2) Result Diagrams: 10/18/21 11:09 10/18/21 12:14 - Diagnostic results Cervical MRI with/without contrast: report reviewed, image reviewed Assessment and Plan Assessment: C3-C4 spondylosis with HNP C3-C4 central canal stenosis C5-C6 spondylosis with HNP C5-C6 central canal stenosis Bilateral upper and lower extremity paresthesias Bilateral lower extremity weakness Other medical comorbidities Plan: Imaging: I was able to review the cervical spine MRI with Dr. Herbert my attending, mild central canal stenosis at C3-C4, severe central canal stenosis is noted at C5-C6 Plan: After discussion of both physical exam findings and imaging studies with my attending Dr. Herbert recommending adding a thoracic spine MRI with and without contrast for further evaluation. A lumbar MRI with and without contrast has also been ordered by neurology, we are waiting that test also. Recommending continuation of gabapentin at this time, could also consider muscle relaxant and IV steroids Recommended weight-bear as tolerated with walker GI and DVT prophylaxis per primary medical service Other medical specialty recommendations appreciated Further recommendations to follow Time with Patient: Less than 30
--- NOTE | 2021-10-21 16:51 | P.PN ---
Subjective Progress Note Date: 10/21/21 The patient is seen at bedside and continues to be about the same. Denies of any new neurological issues. Objective - Vital Signs Vital signs: Vital Signs Temp 98 F 10/21/21 13:59 Pulse 83 10/21/21 13:59 Resp 16 10/21/21 13:59 BP 111/61 10/21/21 13:59 Pulse Ox 94 L 10/21/21 13:59 Intake & Output 10/20/21 10/21/21 10/21/21 18:59 06:59 18:59 Intake Total 118 358 Balance 118 358 Intake: Oral 118 358 Other: Voiding Method Toilet Toilet Toilet # Voids 1 2 - Exam GENERAL: The patient is lying in bed and is not in acute distress. NEUROLOGICAL: Higher mental function: The patient is awake, alert, oriented to self, place and time. Patient is following commands. No aphasia and no neglect. Cranial nerves: The pupils are round, equal and reactive to light and accommodation. Visual huerta are full to confrontation throughout. Extraocular movement is intact no nystagmus is noted. Facial sensation is normal to touch throughout. The facial strength is normal throughout. Hearing is normal bilaterally to hand rub. Tongue is midline and moved [id number] without any difficulty. No dysarthria is noted. Shoulder shrug is normal bilaterally. Motor: Gait is deferred. The strength is 5 over 5 throughout. Limited strength testing over the right hand since had old fracture Normal tone and bulk. Cerebellum: Normal finger to nosebilaterally. Sensation: Sensation is normal to touch throughout. Reflexes (right/left): 1+ throughout uppers except left triceps is 1-2+. Lowers are 0 throughout (has artificial right knee). Plantars are mute bilaterally. WORK-UP: Vitamin B12: 579 Folate: 4.60 TSH: 0.974 HbAc: 5.3 Ionized calcium is 5.2 Lipid panel is triglyceride of 97, cholesterol is 172, LDL is 97, HDL of 55. CT of the head is reported as no acute intracranial posttraumatic sequela or acute Juliet the area and bone fracture. Chronic an incidental finding. The body the port is mentioned the patient has chronic infarct is seen in the head of the right caudate nucleus. Personally reviewed that a CT of the head and I agree with the report. MRI Brain w/ and w/o: Is reported as mild cerebral atrophy. White matter mild signal changes likely related to microvascular ischemia. Old lacunar infarct right caudate nucleus. I personally reviewed the MRI and there is no acute subacute ischemia and I don't see an infarct in the caudate was able to appreciate. MRI the cervical spine w/ and w/o was reported as spondylitic changes in the cervical spine. No spinal stenosis. No fracture. I felt the patient had the mild to moderate stenosis over C3-C4 while at C5-C6 I felt the patient had at least moderate approaching to severe. Routine EEG on the 10/20/2021 is normal. There is no focal slowing, epileptif orm discharges or seizure on the EEG 2-D echo was reported as normal left ventricle spell function. Left atrium was normal size. Stressed Luxiq can test is reported as no evidence for reversible ischemia. - Labs CBC & Chem 7: 10/18/21 11:09 10/18/21 12:14 Labs: Abnormal Lab Results - Last 24 Hours (Table) 10/19/21 Range/Units 19:15 Albumin (PEP) 3.76 L (3.80-4.90) g/dL Gamma Globulins 0.68 L (0.70-1.50) g/dL Assessment and Plan Assessment: Paresthesia of the entire body for the last 10 days and has areflexia in lowers: Rule out spinal stenosis vs Acute inflammatory demylinating polyneuropathy. 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 For Cervical spondylosis consulted Orthopedic team. If above are negative will pursue with Lumbar puncture. Low normal folate 4.6 (normal is 4.4-31): I started the patient on folic acid 1mg daily. Recommend EMG with NCS as outpatient. Continue aspirin 81 mg. Continue Lipitor 10 mg daily at bedtime for secondary stroke prophylaxis Continue Gabapentin 100mg 1 tab tid and will go up to 2 tab tid. Every 4 hours neuro checks Cardiology is on board We'll defer the rest of the medical management to the primary team The plan is discussed with patient and her nurse. Nnamdi Apple M.D. Neuro-hospitalist Time with Patient: Less than 30
[2021-10-21] MEDS: ATORVASTATIN 10 MG TAB PO SCH (20:24)
--- NOTE | 2021-10-21 22:08 | MR ---
EXAMINATION TYPE: MR tspine/lspine wo/w con DATE OF EXAM: 10/21/2021 COMPARISON: MRI C-spine without 05/01/2022. HISTORY: paresthesias. TECHNIQUE: Multiplanar, multisequence images of the lumbar spine is performed without and with IV contrast, util izing 6 mL intravenous Gadavist FINDINGS: Alignment: The thoracic and lumbar vertebral bodies have preserved heights. There is straightening of the thoracolumbar alignment. Cord: The conus medullaris and the distal spinal cord appear unremarkable with regards to their signa l intensity and morphology. No abnormal postcontrast enhancement. Bones/Discs: Multilevel degenerative disc disease is noted and most pronounced at the L5-S1 with Manuel c type II endplate changes. No abnormal postcontrast enhancement. Thoracic spine: Left T10-T11 facet joint arthropathy which abuts the spinal cord. No cord edema ident ified. This best appreciated on series 601 image 11. L1-L2: No significant disc pathology. Spinal canal is patent. The neural foramen are patent. L2-L3: Intracranial disc bulge without significant spinal canal stenosis. The neural foramen are buckner nt. L3-L4: Spinal canal is patent. Facet joint arthropathy result in mild spinal canal stenosis and m ild bilateral neural foraminal stenosis. L4-L5: Spinal canal is patent. Facet joint arthropathy result in mild spinal canal stenosis and mild to moderate bilateral neural foraminal stenosis. L5-S1: Disc bulging with facet joint arthropathy result in mild spinal canal stenosis and moderate bi lateral neural foraminal stenosis. Other findings: Mild atherosclerosis of the arterial vasculature with some mural thrombus present in volving the distal aorta. High T2 signal left hepatic lobe probable cyst measuring 8 mm. IMPRESSION: 1. Facet joint arthropathy at T10-T11 on the left with osteophyte abutting the spinal cord. This bes t appreciated on series 601 image 11. No evidence of disc herniation or additional significant spina l canal stenosis. No abnormal postcontrast enhancement. 2. Multilevel disc degeneration with associated osteoarthritic changes.
[2021-10-21] MEDS ORDERED: CYCLOBENZAPRINE 10 MG TAB PO PRN (23:03)
--- NOTE | 2021-10-21 23:04 | P.PN ---
Subjective Progress Note Date: 10/21/21 Josee Mace is a 61 yo F with PMH of HTN, HLD, tobacco abuse who presented to the ED complaining of chest pain. She states that approximately 10 days ago she had a syncopal event in her kitchen and around that time she started to experience numbness that started around her face and spread throughout her entire body. She continues to complain of reduced sensation today. She did not go to the hospital but scheduled a visit with her PCP. She states that she began to experience chest pain in the last day or two so came to the ED. She currently complains of mild chest pain and generalized numbness. Denies shortness of breath, diaphoresis, nausea, vomiting, tremor. On presentation vitals stable; CT of the head is reported as no acute process, chronic sequalae of previous stroke. Labs remarkable for mildly elevated LFTs and trop negative. She does endorse social alcohol use. 10/20/2021 Low-dose gabapentin initiated yesterday ,reports ongoing chronic pain, chest pressure and weakness. Evaluated by cardiology and completed Lexiscan stress test, reporting patient complained of a "10" chest pain during the exam with further workup/evaluation recommended; reported no scientific graphic evidence of reversible ischemia. Evaluated by neurology -Neurology workup in progress with MRIs of brain/C-spine/lumbar spine, EEG pending. Potential lumbar puncture. 10/21/2021. Pt continues to report pain and numbness throughout her entire body, hands, buttock, chest, abdomen. Her MRI did show cervical canal stenosis. cardiology recommending no further intervention. Objective - Vital Signs Vital signs: Vital Signs Temp 97.6 F 10/21/21 19:27 Pulse 79 10/21/21 19:27 Resp 16 10/21/21 19:27 BP 128/78 10/21/21 19:27 Pulse Ox 93 L 10/21/21 19:27 Intake & Output 10/21/21 10/21/21 10/22/21 06:59 18:59 06:59 Intake Total 576 Balance 576 Intake: Oral 576 Other: Voiding Method Toilet Toilet Toilet # Voids 2 1 - Exam Gen: well developed female in NAD CV: RRR, no murmur Pulm: Normal effort, clear throughout Neuro; str 5/5 no focal deficit - Labs CBC & Chem 7: 10/18/21 11:09 10/18/21 12:14 Labs: Abnormal Lab Results - Last 24 Hours (Table) 10/19/21 Range/Units 19:15 Albumin (PEP) 3.76 L (3.80-4.90) g/dL Gamma Globulins 0.68 L (0.70-1.50) g/dL Assessment and Plan Plan: Continue with gabapentin. Neurology and Ortho recs appreciated. Start flexeril prn. MRI thoracic, lumbar spine pending
[2021-10-22] MEDS: LEVOTHYROXINE 75 MCG TAB PO SCH (06:04)
[2021-10-22] MEDS: FOLIC ACID 1 MG TAB PO SCH (09:08)
[2021-10-22] MEDS: amLODIPine 10 MG TAB PO SCH (09:08)
[2021-10-22] MEDS: GABAPENTIN 100 MG CAP PO SCH ×2 (09:09→17:17)
[2021-10-22] MEDS: ASPIRIN 81 MG PO SCH (09:09)
[2021-10-22] MEDS: METOPROLOL SUCCINATE (ER) 25 MG TAB.ER.24H PO SCH (09:10)
[2021-10-22] MEDS ORDERED: predniSONE 20 MG TAB PO SCH (10:30)
[2021-10-22 11:17] VITALS: RESP 18
--- NOTE | 2021-10-22 11:22 | P.DS ---
Providers Date of admission: 10/20/21 14:37 Expected date of discharge: 10/21/21 Attending physician: Jacob Ku MD Consults: 10/19/21 12:48 Consult Physician Routine Consulting Provider: Nnamdi Apple Consult Reason/Comments: head to toe , bilateral numbness/tingling s/p fall Do you want consulting provider notified?: Yes 10/21/21 08:27 Consult Physician Routine Consulting Provider: Jong Herbert Consult Reason/Comments: cervical spondylosis. Pareshtesia Do you want consulting provider notified?: Yes Primary care physician: Roxi Morris [facility] Course: Final Diagnoses: Chest pain, acute coronary syndrome ruled out, Lexiscan stress test reported negative Paresthesia, possible CVA, possible spinal process, lumbar PX pending. Cervical spondylosis mostly at [id number] surgery consulted, recommendations pending Old lacunar infarct Hypertension Hypothyroidism Ongoing nicotine dependence Hospital course:Josee Mace is a 61 yo F with PMH of HTN, HLD, tobacco abuse who presented to the ED complaining of chest pain. She states that approximately 10 days ago she had a syncopal event in her kitchen and around that time she started to experience numbness that started around her face and spread throughout her entire body. She continues to complain of reduced sensation today. She did not go to the hospital but scheduled a visit with her PCP. She states that she began to experience chest pain in the last day or two so came to the ED. She currently complains of mild chest pain and generalized numbness. Denies shortness of breath, diaphoresis, nausea, vomiting, tremor. On presentation vitals stable; CT of the head is reported as no acute process, chronic sequalae of previous stroke. Labs remarkable for mildly elevated LFTs and trop negative. She does endorse social alcohol use. 10/20/2021 Low-dose gabapentin initiated yesterday ,reports ongoing chronic pain, chest pressure and weakness. Evaluated by cardiology and completed Lexiscan stress test, reporting patient complained of a "10" chest pain during the exam with further workup/evaluation recommended; reported no scientific graphic evidence of reversible ischemia. Evaluated by neurology -Neurology workup in progress with MRIs of brain/C-spine/lumbar spine, EEG pending. Potential lumbar puncture. 10/21/2021 reports tingling, numbing sensation bilateral in all extremities unchanged . Cymbalta 20 added to med regimen . MRI of brain/C-spine reported old lacunar infarct,spondylitic changes in the cervical spine, no spinal stenosis, no fracture, mild cerebral atrophy, white matter mild signal changes likely related to microvascular ischemia with no evidence of demyelinating disease. Pituitary stalk appeared DVTs slightly to the right side but no sellar mass seen-reporting doubtful significance. EEG reported as normal with no epileptiform discharges or seizures. Orthopedic surgery consult in place/recommendations pending. discharge planning in progress pending lumbar puncture, DC recommendations and clearance per neurology and orthopedic surgery. - Exam General: well developed, well nourished, NAD HEENT: NC/AT, mmm Neck: supple, no JVD, no thyromegaly CV: RRR, no murmur Lungs: normal effort, clear throughout Abd: soft, nontender, non distended Neuro: alert and oriented x3, no focal deficits Skin: warm and dry Patient Condition at Discharge: Stable Plan - Discharge Summary New Discharge Prescriptions: New DULoxetine HCL [Cymbalta] 20 mg PO DAILY #30 cap Folic Acid 1 mg PO DAILY tab Atorvastatin [Lipitor] 10 mg PO HS #30 tab Gabapentin [Neurontin] 100 mg PO TID #9 cap predniSONE 10 mg PO DIRECTED #30 tab Continue Metoprolol Succinate (ER) [Toprol XL] 25 mg PO DAILY Levothyroxine Sodium [Synthroid] 75 mcg PO DAILY amLODIPine [Norvasc] 10 mg PO DAILY Aspirin EC [Ecotrin Low Dose] 81 mg PO DAILY Discharge Medication List Levothyroxine Sodium [Synthroid] 75 mcg PO DAILY 05/10/21 [History] Metoprolol Succinate (ER) [Toprol XL] 25 mg PO DAILY 05/10/21 [History] amLODIPine [Norvasc] 10 mg PO DAILY 05/10/21 [History] Aspirin EC [Ecotrin Low Dose] 81 mg PO DAILY 10/18/21 [History] Atorvastatin [Lipitor] 10 mg PO HS #30 tab 10/21/21 [Rx] DULoxetine HCL [Cymbalta] 20 mg PO DAILY #30 cap 10/21/21 [Rx] Folic Acid 1 mg PO DAILY tab 10/21/21 [Rx] Gabapentin [Neurontin] 100 mg PO TID #9 cap 10/21/21 [Rx] predniSONE 10 mg PO DIRECTED #30 tab 10/22/21 [Rx] Follow up Appointment(s)/Referral(s): Roxi Morris DO [Primary Care Provider] - 1-2 days Activity/Diet/Wound Care/Special Instructions: Follow-up with sawyer helper of choice outpatient. EMG with NCS as outpatient.
[2021-10-22] MEDS ORDERED: DULoxetine HCL 20 MG CAPSULE.DR PO SCH (11:45)
--- NOTE | 2021-10-22 11:57 | P.PCN ---
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 Condition: stable Complication: none. Description of the procedure procedure risk and benefits discussed with the patient and family, consent signed. Patient and the procedure area placed in sitting position , back prepped with chlorhexidine 3 times been local infiltration of the skin and subcutaneous tissue with lidocaine 1% 2 mL for skin and subcu interstitial frustrations at L4 5 levels then 22-gauge Quincke-type needle advanced slowly at L4- 5 interlaminar space there was positive cerebrospinal fluid which was clear, no heme, no paresthesia ,total of 8 ML of clear cerebrospinal fluid collected in 4 different tubes 2 mL in each, then the needle removed and a Band-Aid applied and patient tolerated the procedure well without any complications.
--- NOTE | 2021-10-22 12:57 | P.PN ---
Subjective Progress Note Date: 10/22/21 The patient is seen at bedside and feels about the same. Denies of any new neurological issues. Orthopedic team felt patient has mild central canal stenosis over C3-C4 and severe canal stenosis is C5-C6. They ordered MRI Thoracic in addition to MRI Lumbar. She had MRI of the thoracic lumbar spine which is reported as facet joint arthropathy at T10-T11 on the left with osteophyte a budding the spinal cord. This is best appreciated on series 601 image 11. No evidence of disc herniation or additional significant spinal canal stenosis. No abnormal postcontrast enhancement. I ordered lumbar puncture to rule out any the albuminno cytological dissociation for suggestive of GBS. Objective - Vital Signs Vital signs: Vital Signs Temp 97.4 F L 10/22/21 11:15 Pulse 70 10/22/21 11:15 Resp 18 10/22/21 11:15 BP 131/75 10/22/21 11:15 Pulse Ox 94 L 10/22/21 11:15 Intake & Output 10/21/21 10/22/21 10/22/21 18:59 06:59 18:59 Intake Total 576 118 Balance 576 118 Intake: Oral 576 118 Other: Voiding Method Toilet Toilet # Voids 1 1 - Exam GENERAL: The patient is lying in bed and is not in acute distress. NEUROLOGICAL: Higher mental function: The patient is awake, alert, oriented to self, place and time. Patient is following commands. No aphasia and no neglect. Cranial nerves: The pupils are round, equal and reactive to light and a ccommodation. Visual huerta are full to confrontation throughout. Extraocular movement is intact no nystagmus is noted. Facial sensation is normal to touch throughout. The facial strength is normal throughout. Hearing is normal bilaterally to hand rub. Tongue is midline and moved [id number] without any difficulty. No dysarthria is noted. Shoulder shrug is normal bilaterally. Motor: Gait is deferred. The strength is 5 over 5 throughout. Limited strength testing over the right hand since had old fracture Normal tone and bulk. Cerebellum: Normal finger to nosebilaterally. Sensation: Sensation is normal to touch throughout. Reflexes (right/left): 1+ throughout uppers except left triceps is 1-2+. Lowers are 0 throughout (has artificial right knee). Plantars are mute bilaterally. WORK-UP: Vitamin B12: 579 Folate: 4.60 TSH: 0.974 HbAc: 5.3 Ionized calcium is 5.2 Lipid panel is triglyceride of 97, cholesterol is 172, LDL is 97, HDL of 55. CT of the head is reported as no acute intracranial posttraumatic sequela or acute Juliet the area and bone fracture. Chronic an incidental finding. The body the port is mentioned the patient has chronic infarct is seen in the head of the right caudate nucleus. Personally reviewed that a CT of the head and I agree with the report. MRI Brain w/ and w/o: Is reported as mild cerebral atrophy. White matter mild signal changes likely related to microvascular ischemia. Old lacunar infarct right caudate nucleus. I personally reviewed the MRI and there is no acute subacute ischemia and I don't see an infarct in the caudate was able to appreciate. MRI the cervical spine w/ and w/o was reported as spondylitic changes in the cervical spine. No spinal stenosis. No fracture. I felt the patient had the mild to moderate stenosis over C3-C4 while at C5-C6 I felt the patient had at least moderate approaching to severe. She had MRI of the thoracic lumbar spine which is reported as facet joint arthropathy at T10-T11 on the left with osteophyte a budding the spinal cord. This is best appreciated on series 601 image 11. No evidence of disc herniation or additional significant spinal canal stenosis. No abnormal postcontrast enhancement. Routine EEG on the 10/20/2021 is normal. There is no focal slowing, epileptiform discharges or seizure on the EEG 2-D echo was reported as normal left ventricle spell function. Left atrium was normal size. Stressed Luxiq can test is reported as no evidence for reversible ischemia. Protein electropheresis: with Hypogammaglobinemia although not seen in this study. - Labs CBC & Chem 7: 10/18/21 11:09 10/18/21 12:14 Assessment and Plan Assessment: Paresthesia of the entire body for the last 10 days and has areflexia in lowers: Rule out Acute inflammatory demylinating polyneuropathy. I feel unlilkely due to cervical since complaining of paresthesia throughout the body including face but cannot be excluded. Syncopal episode about 10 days ago Cervical spondylosis mostly at C5-C6 at least moderate in severity. Orthopedic felt severe. 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 For Cervical spondylosis Orthopedic team on board. They stated no surgical intervention. Low normal folate 4.6 (normal is 4.4-31): I started the patient on folic acid 1mg daily. Recommend EMG with [facility]CS as outpatient. Continue aspirin 81 mg. Continue Lipitor 10 mg daily at bedtime for secondary stroke prophylaxis Continue Gabapentin 100mg 2 tab tid. Can go up to 3 tab tid if continues to have symptoms. Every 4 hours neuro checks We'll defer the rest of the medical management to the primary team If lumbar puncture is negative then patient is clear from neurological perspective. The plan is discussed with patient and her nurse. UPDATE: CSF: clear, colorless, 1 nucleated cell, glucose is 69 and protein is 56 (normal). Therefore, from CSF study unlikely Acute inflammatory demylinating polyneuropathy and her symptoms could be due to cervical spondylosis. I would still continue to pursue with EMG with [facility]CS as outpatient. No additional work-up and patient is clear for discharge from neurological perspective. Nnamdi Apple M.D. Neuro-hospitalist Time with Patient: Less than 30
[2021-10-22] MEDS: INSULIN ASPART (NovoLOG) 100 UNIT/ML VIAL SQ SCH ×2 (13:33→17:29)
[2021-10-22 14:08] LABS: Glucose,CSF 69 mg/dL (40-70); Total Protein,CSF 56 mg/dL (12-60)
[2021-10-22 14:25] VITALS: BP 127/82; PULSE 75; TEMP 97.7
[2021-10-22 14:43] LABS: Appearance,CSF Clear; CSF Tube Number 4
[2021-10-22 14:44] LABS: Nucleated Cells, CSF 1 u/L (0-5); Red Blood Cell,CSF 0 u/L (0-10)
[2021-10-26 10:49] LABS: VDRL, Qualitative CSF Nonreactive (Nonreactive)
== END 2021-10-22 17:30 | disposition home or self-care (01) | DRG 92 ==
LOC: EC 10:34 → 6NMEDSUR 13:58 → OBSVTOIN 10-20 14:37
PROVIDERS: ADMIT Family Medicine; ATTEND Family Medicine
PROC: 009U3ZX Drainage of Spinal Canal, Percutaneous Approach, Diagnostic (ICD-10-PCS; principal; 2021-10-22 15:00)
DX: R20.2 Paresthesia of skin (principal); I67.89 Other cerebrovascular disease; G31.9 Degenerative disease of nervous system, unspecified; M50.21 Other cervical disc displacement, high cervical region; R29.2 Abnormal reflex; R07.89 Other chest pain; E03.9 Hypothyroidism, unspecified; I10 Essential (primary) hypertension; G89.29 Other chronic pain; M48.02 Spinal stenosis, cervical region; M48.061 Spinal stenosis, lumbar region without neurogenic claudication; M47.817 Spondylosis without myelopathy or radiculopathy, lumbosacral region; M47.812 Spondylosis without myelopathy or radiculopathy, cervical region; M25.78 Osteophyte, vertebrae; E78.5 Hyperlipidemia, unspecified; F17.210 Nicotine dependence, cigarettes, uncomplicated; Z71.6 Tobacco abuse counseling; Z79.82 Long term (current) use of aspirin; Z79.890 Hormone replacement therapy; Z79.899 Other long term (current) drug therapy; Z88.0 Allergy status to penicillin; Z96.651 Presence of right artificial knee joint; Z87.81 Personal history of (healed) traumatic fracture; Z86.73 Personal history of transient ischemic attack (TIA), and cerebral infarction without residual deficits; Z82.49 Family history of ischemic heart disease and other diseases of the circulatory system
CPT/HCPCS: 36415; 62270; 70450; 70553; 71046; 72156; 72157; 72158; 78452; 80053; 80061; 82150; 82164; 82330; 82607; 82746; 82945; 83036; 83690; 83735; 83873; 83880; 84157; 84165; 84443; 84484; 85025; 85379; 85610; 85730; 86592; 86788; 86789; 87070; 87205; 87252; 87496; 87498; 87529; 87798; 87801; 89050; 93005; 93017; 93306; 95816; 96374; 99285

== ENCOUNTER 2022-07-10 00:07 | Inpatient (IN) | payer BC, OTHER ==
[2022-07-10] MEDS ORDERED: SODIUM CHLORIDE 0.9% 1,000 ML IV STA (00:09)
--- NOTE | 2022-07-10 00:10 | ED ---
Neuro HPI - General Stated Complaint: Possible stroke Time Seen by Provider: 07/10/22 00:09 Source: RN notes reviewed, old records reviewed Mode of arrival: EMS Limitations: no limitations - History of Present Illness Is the patient presenting with stroke symptoms?: Yes -: hour(s) (2) Initial Comments: This is a 60-year-old female DF for evaluation. Patient was found by in the bathroom mild to moderately unresponsive. does state that patient has been following this condition before but this is been the worst. Patient is a poor historian on arrival to the emergency department. She was complaining to EMS about recent difficulty of moving legs feet arms bilaterally and a decreased amount of activity level Location: speech, left face, right face, dysarthria History of same: No Place: home Severity: moderate Quality: weak, numb Improves With: none Worsens With: none Context: gradual onset Associated Symptoms: denies other symptoms, confusion Treatments Prior to Arrival: none - Related Data Home Medications: Home Medications Medication Instructions Recorded Confirmed Levothyroxine Sodium [Synthroid] 75 mcg PO DAILY 05/10/21 10/18/21 Metoprolol Succinate (ER) [Toprol 25 mg PO DAILY 05/10/21 10/18/21 XL] amLODIPine [Norvasc] 10 mg PO DAILY 05/10/21 10/18/21 Aspirin EC [Ecotrin Low Dose] 81 mg PO DAILY 10/18/21 10/18/21 Previous Rx's Medication Instructions Recorded Atorvastatin [Lipitor] 10 mg PO HS #30 tab 10/21/21 DULoxetine HCL [Cymbalta] 20 mg PO DAILY #30 cap 10/21/21 Folic Acid 1 mg PO DAILY tab 10/21/21 Gabapentin [Neurontin] 200 mg PO TID #18 cap 10/22/21 predniSONE 10 mg PO DIRECTED #30 tab 10/22/21 Allergies/Adverse Reactions: Allergies Allergy/AdvReac Type Severity Reaction Status Date / Time Penicillins AdvReac Vomiting Verified 10/18/21 12:09 Review of Systems ROS Statement: Those systems with pertinent positive or pertinent negative responses have been documented in the HPI. ROS Other: All systems not noted in ROS Statement are negative. General Exam General appearance: alert, in no apparent distress Head exam: Present: atraumatic, normocephalic, normal inspection Eye exam: Present: normal appearance, PERRL, EOMI. Absent: scleral icterus, conjunctival injection, periorbital swelling ENT exam: Present: normal exam, mucous membranes moist Neck exam: Present: normal inspection. Absent: tenderness, meningismus, lymphadenopathy Respiratory exam: Present: normal lung sounds bilaterally. Absent: respiratory distress, wheezes, rales, rhonchi, stridor Cardiovascular Exam: Present: regular rate, normal rhythm, normal heart sounds. Absent: systolic murmur, diastolic murmur, rubs, gallop, clicks GI/Abdominal exam: Present: soft, normal bowel sounds. Absent: distended, tenderness, guarding, rebound, rigid Extremities exam: Present: normal inspection, full ROM, normal capillary refill. Absent: tenderness, pedal edema, joint swelling, calf tenderness Back exam: Present: normal inspection Neurological exam: Present: alert, oriented X3, CN II-XII intact Psychiatric exam: Present: normal affect, normal mood Skin exam: Present: warm, dry, intact, normal color. Absent: rash Stroke MDM - Lab Data Result diagrams: 07/10/22 00:25 07/10/22 00:25 Lab Results 07/10/22 07/10/22 07/10/22 Range/Units 00:23 00:25 00:25 WBC 7.6 (3.8-10.6) k/uL RBC 4.59 (3.80-5.40) m/uL Hgb 14.2 (11.4-16.0) gm/dL Hct 42.8 (34.0-46.0) % MCV 93.3 (80.0-100.0) fL MCH 31.0 (25.0-35.0) pg MCHC 33.2 (31.0-37.0) g/dL RDW 13.6 (11.5-15.5) % Plt Count 228 (150-450) k/uL MPV 7.6 Neutrophils % 65 % Lymphocytes % 23 % Monocytes % 7 % Eosinophils % 3 % Basophils % 1 % Neutrophils # 4.9 (1.3-7.7) k/uL Lymphocytes # 1.8 (1.0-4.8) k/uL Monocytes # 0.5 (0-1.0) k/uL Eosinophils # 0.2 (0-0.7) k/uL Basophils # 0.1 (0-0.2) k/uL PT 11.4 (9.0-12.0) sec INR 1.1 (<1.2) APTT 22.5 (22.0-30.0) sec Sodium (137-145) mmol/L Potassium (3.5-5.1) mmol/L Chloride (98-107) mmol/L Carbon Dioxide (22-30) mmol/L Anion Gap mmol/L BUN (7-17) mg/dL Creatinine (0.52-1.04) mg/dL Est GFR (CKD-EPI)AfAm (>60 ml/min/1.73 sqM) Est GFR (CKD-EPI)NonAf (>60 ml/min/1.73 sqM) Glucose (74-99) mg/dL POC Glucose (mg/dL) 112 H (70-110) mg/dL POC Glu Associate Doctor ID Hector Che Calcium (8.4-10.2) mg/dL Phosphorus (2.5-4.5) mg/dL Magnesium (1.6-2.3) mg/dL Total Bilirubin (0.2-1.3) mg/dL AST (14-36) U/L ALT (4-34) U/L Alkaline Phosphatase (38-126) U/L Troponin I (0.000-0.034) ng/mL Total Protein (6.3-8.2) g/dL Albumin (3.5-5.0) g/dL Salicylates mg/dL Urine Opiates Screen (NotDetected) Ur Oxycodone Screen (NotDetected) Urine Methadone Screen (NotDetected) Ur Propoxyphene Screen (NotDetected) Acetaminophen ug/mL Ur Barbiturates Screen (NotDetected) U Tricyclic Antidepress (NotDetected) Ur Phencyclidine Scrn (NotDetected) Ur Amphetamines Screen (NotDetected) U Methamphetamines Scrn (NotDetected) U Benzodiazepines Scrn (NotDetected) Urine Cocaine Screen (NotDetected) U Marijuana (THC) Screen (NotDetected) Serum Alcohol mg/dL 07/10/22 07/10/22 07/10/22 Range/Units 00:25 00:25 00:25 WBC (3.8-10.6) k/uL RBC (3.80-5.40) m/uL Hgb (11.4-16.0) gm/dL Hct (34.0-46.0) % MCV (80.0-100.0) fL MCH (25.0-35.0) pg MCHC (31.0-37.0) g/dL RDW (11.5-15.5) % Plt Count (150-450) k/uL MPV Neutrophils % % Lymphocytes % % Monocytes % % Eosinophils % % Basophils % % Neutrophils # (1.3-7.7) k/uL Lymphocytes # (1.0-4.8) k/uL Monocytes # (0-1.0) k/uL Eosinophils # (0-0.7) k/uL Basophils # (0-0.2) k/uL PT (9.0-12.0) sec INR (<1.2) APTT (22.0-30.0) sec Sodium 136 L (137-145) mmol/L Potassium 3.9 (3.5-5.1) mmol/L Chloride 106 (98-107) mmol/L Carbon Dioxide 21 L (22-30) mmol/L Anion Gap 9 mmol/L BUN 4 L (7-17) mg/dL Creatinine 0.40 L (0.52-1.04) mg/dL Est GFR (CKD-EPI)AfAm >90 (>60 ml/min/1.73 sqM) Est GFR (CKD-EPI)NonAf >90 (>60 ml/min/1.73 sqM) Glucose 99 (74-99) mg/dL POC Glucose (mg/dL) (70-110) mg/dL POC Glu Associate Doctor ID Calcium 7.7 L (8.4-10.2) mg/dL Phosphorus 3.0 (2.5-4.5) mg/dL Magnesium 2.0 (1.6-2.3) mg/dL Total Bilirubin 0.6 (0.2-1.3) mg/dL AST 78 H (14-36) U/L ALT 41 H (4-34) U/L Alkaline Phosphatase 72 (38-126) U/L Troponin I 0.020 (0.000-0.034) ng/mL Total Protein 5.4 L (6.3-8.2) g/dL Albumin 2.9 L (3.5-5.0) g/dL Salicylates <1.0 mg/dL Urine Opiates Screen (NotDetected) Ur Oxycodone Screen (NotDetected) Urine Methadone Screen (NotDetected) Ur Propoxyphene Screen (NotDetected) Acetaminophen <10.0 ug/mL Ur Barbiturates Screen (NotDetected) U Tricyclic Antidepress (NotDetected) Ur Phencyclidine Scrn (NotDetected) Ur Amphetamines Screen (NotDetected) U Methamphetamines Scrn (NotDetected) U Benzodiazepines Scrn (NotDetected) Urine Cocaine Screen (NotDetected) U Marijuana (THC) Screen (NotDetected) Serum Alcohol 120 mg/dL 07/10/22 Range/Units 03:07 WBC (3.8-10.6) k/uL RBC (3.80-5.40) m/uL Hgb (11.4-16.0) gm/dL Hct (34.0-46.0) % MCV (80.0-100.0) fL MCH (25.0-35.0) pg MCHC (31.0-37.0) g/dL RDW (11.5-15.5) % Plt Count (150-450) k/uL MPV Neutrophils % % Lymphocytes % % Monocytes % % Eosinophils % % Basophils % % Neutrophils # (1.3-7.7) k/uL Lymphocytes # (1.0-4.8) k/uL Monocytes # (0-1.0) k/uL Eosinophils # (0-0.7) k/uL Basophils # (0-0.2) k/uL PT (9.0-12.0) sec INR (<1.2) APTT (22.0-30.0) sec Sodium (137-145) mmol/L Potassium (3.5-5.1) mmol/L Chloride (98-107) mmol/L Carbon Dioxide (22-30) mmol/L Anion Gap mmol/L BUN (7-17) mg/dL Creatinine (0.52-1.04) mg/dL Est GFR (CKD-EPI)AfAm (>60 ml/min/1.73 sqM) Est GFR (CKD-EPI)NonAf (>60 ml/min/1.73 sqM) Glucose (74-99) mg/dL POC Glucose (mg/dL) (70-110) mg/dL POC Glu Associate Doctor ID Calcium (8.4-10.2) mg/dL Phosphorus (2.5-4.5) mg/dL Magnesium (1.6-2.3) mg/dL Total Bilirubin (0.2-1.3) mg/dL AST (14-36) U/L ALT (4-34) U/L Alkaline Phosphatase (38-126) U/L Troponin I (0.000-0.034) ng/mL Total Protein (6.3-8.2) g/dL Albumin (3.5-5.0) g/dL Salicylates mg/dL Urine Opiates Screen Not Detected (NotDetected) Ur Oxycodone Screen Not Detected (NotDetected) Urine Methadone Screen Not Detected (NotDetected) Ur Propoxyphene Screen Not Detected (NotDetected) Acetaminophen ug/mL Ur Barbiturates Screen Not Detected (NotDetected) U Tricyclic Antidepress Not Detected (NotDetected) Ur Phencyclidine Scrn Not Detected (NotDetected) Ur Amphetamines Screen Not Detected (NotDetected) U Methamphetamines Scrn Not Detected (NotDetected) U Benzodiazepines Scrn Not Detected (NotDetected) Urine Cocaine Screen Not Detected (NotDetected) U Marijuana (THC) Screen Not Detected (NotDetected) Serum Alcohol mg/dL - NIH Stroke Scale 1a. Level of Consciousness: (0) alert 1b. LOC Questions: (0) answers correctly 1c. LOC Commands: (0) performs tasks correctly 2. Best Gaze: (0) normal 3. Visual: (0) no visual loss 4. Facial Palsy: (0) normal symmetrical movement 5a. Motor Arm Left: (0) no drift 5b. Motor Arm Right: (0) no drift 6b. Motor Leg Right: (0) no drift 7. Limb Ataxia: (0) absent 8. Sensory: (0) normal 9. Best Language: (0) no aphasia 10. Dysarthria: (0) normal 11. Extinction/Inattention: (0) no abnormality - Thrombolytic Inclusion/Exclusion Thrombolytic Exclusion Criteria: Onset of Symptoms Unknown - Medical Decision Making 62 female other significant weakness diminished appetite dehydration alcohol intoxication patient will be admitted for further evaluation management - Radiology Data Radiology results: report reviewed (CT brain CT had neck negative for acute disease ), image reviewed - EKG Data -: EKG Interpreted by Me (EKG sinus 93 MS 184 QRS 96 QTc 440) Past Medical History Past Medical History: Hypertension, Thyroid Disorder History of Any Multi-Drug Resistant Organisms: None Reported Past Surgical History: Orthopedic Surgery Past Psychological History: No Psychological Hx Reported Smoking Status: Current every day smoker Past Alcohol Use History: Daily Past Drug Use History: None Reported Course Vital Signs 07/10/22 07/10/22 07/10/22 00:10 02:13 03:07 Temperature 97.7 F Pulse Rate 93 98 92 Respiratory 14 16 Rate Blood Pressure 122/85 110/84 110/78 O2 Sat by Pulse 94 L 95 92 L Oximetry - Reevaluation(s) Reevaluation #1: 07/10/22 00:26 Medical records reviewed Code stroke paged on arrival Reevaluation #2: 07/10/22 Patient has no significant change in symptoms but is more arousable responsive to questioning Reevaluation #3: 07/10/22 Patient informed results and questions are answered Reevaluation #4: 07/10/22 07:16 Spoke with admitting physicians who agree to admit this patient Disposition Clinical Impression: Altered mental status Disposition: ADMITTED IP TO THIS [facility] Condition: Undetermined Is patient prescribed a controlled substance at d/c from ED?: No Time of Disposition: 04:00
[2022-07-10 00:27] LABS: Glucose,Whole Blood 112 mg/dL (70-110)
--- NOTE | 2022-07-10 00:29 | CT ---
EXAMINATION TYPE: CT brain wo con for TPA DATE OF EXAM: 07/10/2022 COMPARISON: 10/19/2021 HISTORY: code stroke Weakness CT DLP: 1723.8 mGycm Automated exposure control for dose reduction was used. Images obtained of the brain with no contrast. Ventricles have normal size. There is no mass effect normal line shift. No sign of intracranial hemor rhage. Calvarium is intact. There is 8 mm area of hypodensity in the right caudate nucleus. Skull bas e is intact. There is normal aeration of the mastoid sinuses. IMPRESSION: There is old lacunar infarct right caudate nucleus without change. No acute intracranial abnormality.
--- NOTE | 2022-07-10 00:43 | CT ---
EXAMINATION TYPE: CT angio head neck DATE OF EXAM: 07/10/2022 COMPARISON: None HISTORY: stroke CT DLP: 1723.8 mGycm Automated exposure control for dose reduction was used. CONTRAST: Performed with IV Contrast, patient injected with 65 mL of Isovue 370. Images obtained from the aortic arch to the vertex of the brain with the IV contrast. There are Three-D postprocessed images. There is normal branching pattern of the great vessels on the aortic arch. There is arterial flow in both subclavian arteries. There is arterial flow in the common internal and external carotid arteries bilaterally. There is wide patency of the carotid artery bifurcations. There is medial deviation of the internal carotid arteries which are almost touching. There is arterial flow in both vertebral arteries. There is arterial flow in the vertebrobasilar keira ry system. No evidence of carotid or vertebral artery aneurysm or dissection. There is arterial flow within the anterior middle and posterior cerebral arteries bilaterally. There is no mass effect. No evidence of intracranial aneurysm or neovascularity. No evidence of intracrania l hemodynamic arterial stenosis. There is normal enhancement of the venous sinuses. The cervical vertebra have normal alignment. There is some degenerative disc space narrowing at C5-6 and C6-7 with mild spurring of the endplates. Posterior elements are intact. No compression fracture. Facet joints are intact. IMPRESSION: Negative CT angiogram of the neck. Negative CT angiogram of the brain. Minor degenerative disc changes in the lower cervical spine. No fracture.
[2022-07-10 00:48] LABS: Basophils # (A) 0.1 k/uL (0-0.2); Basophils % (A) 1 %; Eosinophils # (A) 0.2 k/uL (0-0.7); Eosinophils % (A) 3 %; HCT 42.8 % (34.0-46.0); HGB 14.2 gm/dL (11.4-16.0); Lymphocytes # (A) 1.8 k/uL (1.0-4.8); Lymphocytes % (A) 23 %; MCHC 33.2 g/dL (31.0-37.0); MCV 93.3 fL (80.0-100.0); Mean Platelet Volume 7.6; Monocytes # (A) 0.5 k/uL (0-1.0); Monocytes % (A) 7 %; Neutrophils # (A) 4.9 k/uL (1.3-7.7); Neutrophils % (A) 65 %; Platelet Count 228 k/uL (150-450); RBC 4.59 m/uL (3.80-5.40); RDW 13.6 % (11.5-15.5); WBC 7.6 k/uL (3.8-10.6)
[2022-07-10 00:58] LABS: INR 1.1 (<1.2); Partial Thromboplastin Time 22.5 sec (22.0-30.0); Prothrombin Time 11.4 sec (9.0-12.0)
[2022-07-10 01:08] LABS: ALT 41 U/L (4-34); African American GFR (CKD) >90 (>60 ml/min/1.73 sqM); Anion Gap 9 mmol/L; Blood Urea Nitrogen 4 mg/dL (7-17); Calcium 7.7 mg/dL (8.4-10.2); Carbon Dioxide 21 mmol/L (22-30); Chloride 106 mmol/L (98-107); Glucose 99 mg/dL (74-99); Non-African American GFR(CKD) >90 (>60 ml/min/1.73 sqM); Sodium 136 mmol/L (137-145); Total Bilirubin 0.6 mg/dL (0.2-1.3)
[2022-07-10 01:22] LABS: AST 78 U/L (14-36); Albumin 2.9 g/dL (3.5-5.0); Alkaline Phosphatase 72 U/L (38-126); Potassium 3.9 mmol/L (3.5-5.1); Total Protein 5.4 g/dL (6.3-8.2)
[2022-07-10 01:28] LABS: Acetaminophen <10.0 ug/mL; Salicylate <1.0 mg/dL
[2022-07-10 01:54] LABS: Alcohol 120 mg/dL
[2022-07-10 03:44] LABS: Amphetamine Screen,Urine Not Detected (NotDetected); Barbiturate Screen,Urine Not Detected (NotDetected); Benzodiazepines Screen,Urine Not Detected (NotDetected); Cocaine Screen,Urine Not Detected (NotDetected); Methadone Screen, Urine Not Detected (NotDetected); Opiate Screen,Urine Not Detected (NotDetected); Oxycodone Screen, Urine Not Detected (NotDetected); Phencyclidine Screen,Urine Not Detected (NotDetected); Tricyclic Antidepressant,Urine Not Detected (NotDetected); Urn Cannabinoid Scrn Not Detected (NotDetected)
[2022-07-10] MEDS ORDERED: LORazepam 0.5 MG TAB PO PRN (03:53)
[2022-07-10] MEDS ORDERED: ONDANSETRON 4 MG/2 ML VIAL IVP PRN (03:53)
[2022-07-10] MEDS ORDERED: MORPHINE SULFATE 4 MG/ML SYRINGE IV PRN (03:53)
[2022-07-10] MEDS ORDERED: NALOXONE 0.4 MG/ML 1 ML VIAL IV PRN (03:53)
[2022-07-10] MEDS: SODIUM CHLORIDE 0.9% 1,000 ML IV SCH ×2 (04:14→11:14)
[2022-07-10 10:28] LABS: Appearance,Urine Cloudy (Clear); Bilirubin,Urine Negative (Negative); Blood,Urine Moderate (Negative); Color,Urine Colorless; Glucose,Urine (UA) Negative (Negative); Ketones,Urine Negative (Negative); Leukocyte Esterase,Urine Trace (Negative); Nitrite,Urine Negative (Negative); Protein,Urine Negative (Negative); RBC,Urine 1 /hpf (0-5); Specific Gravity,Urine 1.021 (1.001-1.035); Squamous Epithelial Cell,Urine 3 /hpf (0-4); Urobilinogen,Urine <2.0 mg/dL (<2.0); WBC,Urine 2 /hpf (0-5)
[2022-07-10] MEDS ORDERED: THIAMINE 100 MG/ML 2 ML VIAL IM STA (12:48)
[2022-07-10] MEDS: METOPROLOL SUCCINATE (ER) 25 MG TAB.ER.24H PO SCH (14:11)
[2022-07-10] MEDS: HEPARIN SODIUM,PORCINE/PF 5,000 UNIT/0.5 ML SYRINGE SQ SCH ×2 (14:11→20:00)
[2022-07-10] MEDS: amLODIPine 10 MG TAB PO SCH (14:11)
[2022-07-10] MEDS: LEVOTHYROXINE 75 MCG TAB PO SCH (14:11)
[2022-07-10] MEDS: ASPIRIN 81 MG PO SCH (14:11)
--- NOTE | 2022-07-10 14:50 | P.CNNES ---
History of Present Illness Consult date: 07/10/22 Reason for Consult: TIA History of Present Illness: The patient is a 62-year-old female who is seen in neurologic consultation on July 10, 2022, via teleneurology. History is obtained from the patient, as well as review of the chart. According to the emergency department note, the patient was found down, in the bathroom, by her . The patient was reportedly poorly responsive. EMS was called. There was concern for stroke the patient herself reports that she fell in the bathroom. She says that her legs gave out. She states that she did not hit her head. She reportedly does not recall EMS being at the house or the ride to the hospital, in the ambulance. She does recall some of her time in the emergency department. In the ER, CT scan of the brain and CT angiogram of the head and neck were performed. There is no evidence of acute hemorrhage or infarct. There is no evidence of significant stenosis or large vessel occlusion. The patient has reportedly been worked up for similar symptoms, in October 2021. The patient reports that she has been having numbness in her hands and feet. She also reports weakness throughout. She says that she has difficulty ambulating and does not go out of the house very often, especially in the wintertime. In addition to the aforementioned symptoms, the patient reports chest pain and constipation. She states "I have not had a significant bowel movement October 2021". She initially alludes to the fact that she is unable to sense when she is having a bowel movement. With further questioning, she says that she is able to urinate and feel when she wipes, but she does not know about sensation around her anus because, "I have not had a bowel movement". The patient reports weakness in her legs, greater proximally and distally. She does report numbness of her feet/lower legs. Following her previous admission in October 2021, the patient reports that she did have an EMG with nerve conduction studies. This test reportedly showed that she had a carpal tunnel syndrome and neuropathy. Past Medical History Past Medical History: Hypertension, Thyroid Disorder Additional Past Medical History / Comment(s): Pt states previous CVA per CT scan when she was in the hospital last with no residual. History of Any Multi-Drug Resistant Organisms: None Reported Past Surgical History: Orthopedic Surgery Additional Past Surgical History / Comment(s): Right knee replacement. Past Anesthesia/Blood Transfusion Reactions: No Reported Reaction Past Psychological History: No Psychological Hx Reported Smoking Status: Current every day smoker Past Alcohol Use History: Daily Past Drug Use History: None Reported Medications and Allergies Home Medications Medication Instructions Recorded Confirmed Type Levothyroxine Sodium [Synthroid] 75 mcg PO DAILY 05/10/21 07/10/22 History Metoprolol Succinate (ER) [Toprol 25 mg PO DAILY 05/10/21 07/10/22 History XL] amLODIPine [Norvasc] 10 mg PO DAILY 05/10/21 07/10/22 History Allergies Allergy/AdvReac Type Severity Reaction Status Date / Time Penicillins AdvReac Vomiting Verified 07/10/22 10:50 Physical Examination - Vital Signs Vital Signs: Vital Signs Temp Pulse Pulse Resp BP BP Pulse Ox 07/10/22 07:00 97.8 F 101 H 17 110/75 94 L 07/10/22 04:47 16 07/10/22 04:35 97.9 F 90 16 119/84 95 07/10/22 03:07 92 16 110/78 92 L 07/10/22 02:13 98 110/84 95 07/10/22 00:10 97.7 F 93 14 122/85 94 L Intake and Output 07/09/22 07/10/22 07/10/22 22:59 06:59 14:59 Other: Voiding Method External Catheter # Voids 1 1 Weight 74.843 kg Gen.: The patient is reclining in the bed. She is well-nourished. She is in no acute distress. HEENT: Head is atraumatic, normocephalic. Fundus not visualized. There is no scleral icterus. Mucous membranes are moist Neck: Supple Extremities: Without edema Neurological examination Mental status: The patient is awake, alert and oriented 3. Her speech is cl ear. There is no dysarthria or aphasia Cranial nerves: Pupils are equal at 6 mm and reactive. Visual huerta are full to confrontation. Extraocular movements are intact. Facial sensation is intact. There is no facial asymmetry. Hearing is grossly intact. Uvula and palate are midline. Shoulder shrug is symmetric. Tongue protrudes midline. Motor: Bilateral upper extremity strength is 5/5 with the exception of the right triceps at 4/5. Bilateral hip flexors 2/5. There is poor effort with this testing as there is very little downward pressure with attempted lifting of the opposite leg. Sensation: The patient reports decreased right-sided sensation. There is questionable right-sided extinction with double simultaneous stimulation. Coordination: There is no pronator drift. Finger to nose testing and rapid alternating movements are intact. Deep tendon reflexes: Absent throughout Gait: Not assessed Results - Laboratory Findings CBC and BMP: 07/10/22 00:25 07/10/22 00:25 Abnormal Lab Findings: Abnormal Labs 07/10/22 07/10/22 07/10/22 00: 00:25 03:07 Sodium 136 L Carbon Dioxide 21 L BUN 4 L Creatinine 0.40 L POC Glucose (mg/dL) 112 H Calcium 7.7 L AST 78 H ALT 41 H Total Protein 5.4 L Albumin 2.9 L Urine Appearance Cloudy H Urine Blood Moderate H Ur Leukocyte Esterase Trace H Assessment and Plan Assessment: 1. Reported fall secondary to leg weakness. Current neurological examination shows no focal or lateralizing deficits. 2. Alcohol intoxication 3. History of hypertension 4. CT scan with evidence of chronic lacunar infarct 5. History of hypothyroidism Plan: 1. MRI of brain to further evaluate for cerebral ischemia 2. Several labs have been ordered including: vitamin B12, vitamin B6, vitamin B1, vitamin D, TSH 3. Physical therapy evaluation
--- NOTE | 2022-07-10 23:15 | HP ---
HISTORY AND PHYSICAL CHIEF COMPLAINT: possible acute stroke. HISTORY OF PRESENT ILLNESS: A 62-year-old woman with past medical history of multiple medical problems including hypertension, was found to be lying in the bathroom by the . The patient was unresponsive. The patient was taken to [facility] and alcohol level was 120. The patient also had old lacunar infarct. The patient is slightly drowsy at this time. No fever, rigors, or chills at this time. PAST MEDICAL HISTORY: Reviewed include hypertension. The rest of the history and rest of the chart are reviewed. HOME MEDICATIONS: Reviewed including Norvasc. Doses and rest of medication noted. ALLERGIES: Penicillin. FAMILY HISTORY: No history of heart disease or strokes in the family. SOCIAL HISTORY: Daily alcohol and smoking. REVIEW OF SYSTEMS: A 14-point review is negative except as mentioned earlier. PHYSICAL EXAMINATION: VITAL SIGNS: Pulse is 101, blood pressure 110/71, respirations 17. HEENT: Conjunctivae are normal. Oral mucosa moist. CARDIOVASCULAR: S1 and S2. RESPIRATIONS: Breath sounds diminished at the bases. ABDOMEN: Soft and nontender. LEGS: No edema. NERVOUS SYSTEM: Moves all 4 limbs. No focal deficits. Generally weak. SKIN: No ulcers or rashes. JOINT: No active deforming arthropathy. LABORATORY DATA: Reviewed. CBC within normal limits. ASSESSMENT: 1. Change in mental status possible alcohol intoxication, rule out acute stroke. 2. Previous lacunar stroke. 3. Hypertension. 4. Hypothyroidism. RECOMMENDATIONS AND DISCUSSION: This is a 62-year-old woman who presented with multiple complex medical issues, we will monitor the patient closely. Continue the current medications. I would recommend Neurology consultation. Alcohol withdrawal precautions. Repeat labs. Resume the home medications. CIWA protocol. Prognosis guarded because of multiple complex medical issues. Further recommendations to follow. See orders for details. MMODL / IJN: [id number] /
[2022-07-11] MEDS: THIAMINE 100 MG TAB PO SCH (08:29)
[2022-07-11] MEDS: LEVOTHYROXINE 75 MCG TAB PO SCH (08:29)
[2022-07-11] MEDS: ASPIRIN 81 MG PO SCH (08:29)
[2022-07-11] MEDS: METOPROLOL SUCCINATE (ER) 25 MG TAB.ER.24H PO SCH (08:29)
[2022-07-11] MEDS: amLODIPine 10 MG TAB PO SCH (08:29)
[2022-07-11] MEDS: HEPARIN SODIUM,PORCINE/PF 5,000 UNIT/0.5 ML SYRINGE SQ SCH ×2 (08:30→20:47)
[2022-07-11 08:40] VITALS: RESP 16
[2022-07-11] MEDS: PANTOPRAZOLE 40 MG/10 ML VIAL IVP SCH ×2 (09:26→20:47)
--- NOTE | 2022-07-11 09:39 | CT ---
EXAMINATION TYPE: CT lumbar spine wo con DATE OF EXAM: 07/11/2022 8:58 AM COMPARISON: MRI lumbar spine October 21, 2021 HISTORY: Bilateral leg weakness. CT DLP: 982.6 mGycm Automated exposure control for dose reduction was used. Unenhanced CT of the lumbar spine was performed. Bone and soft tissue window settings are submitted as well as coronal and sagittal reconstructions. There are 5 lumbar type vertebra redemonstrated. Lumbar spine show stable in satisfactory alignment. Vertebral body heights are preserved. There is moderate to severe disc space narrowing with vacuum di sc phenomenon along with mild/moderate anterior spurring at L5-S1 level. Review of axial images redemonstrates [id number] broad disc bulge minimally effacing the anteri or thecal sac along with mild to moderate bilateral neural foraminal narrowing. No significant change from prior MRI. No new large disc herniations are present. Facet arthropathy in the lower lumbar spi ne is redemonstrated with moderate right greater than left arthropathy again seen at L4-L5 level. The re is partial visualization of thin-walled cyst or cystic lesion on current study measuring 8.6 x 5.1 cm axial image 98 separate from the bladder likely originating from the right ovary. Visualized live r is heterogeneously hypodense consistent with fatty infiltrative hepatocellular disease. There is de pendent gallbladder sludge and/or small stones in gallbladder. IMPRESSION: Multilevel degenerative changes in lumbar spine as detailed above not significantly santiago ed from prior MRI. Note is made of 8.6 cm cystic lesion worrisome for neoplasm in the right pelvis/ov brenton. Advise gynecology oncology nonemergent follow-up.
[2022-07-11 10:39] LABS: Basophils # (A) 0.07 X 10*3/uL (0.00-0.10); Eosinophils # (A) 0.09 X 10*3/uL (0.04-0.35); Eosinophils % (A) 1.2 %; HCT 41.2 % (37.2-46.3); Immature Grans, Automated 0.4 %; Lymphocytes # (A) 1.65 X 10*3/uL (0.90-5.00); Lymphocytes % (A) 22.5 %; MCH 29.7 pg (27.0-32.0); MCHC 31.6 g/dL (32.0-37.0); MCV 94.1 fL (80.0-97.0); Mean Platelet Volume 10.3 fL (9.5-12.2); Monocytes % (A) 9.6 %; NRBC Per 100 WBC 0 /100 WBCS (0.0-0.0); Neutrophils # (A) 4.78 X 10*3/uL (1.80-7.70); Neutrophils % (A) 65.3 %; Platelet Count 222 X 10*3/uL (140-440); RBC 4.38 X 10*6/uL (4.10-5.20); RDW 14.1 % (11.5-14.5); WBC 7.32 X 10*3/uL (4.50-10.00)
[2022-07-11 10:56] LABS: African American GFR (CKD) 120.2 (60.0-200.0); Albumin 3.2 g/dL (3.8-4.9); Albumin/Globulin Ratio 1.78 (1.60-3.17); Anion Gap 6.2 mmol/L (10.00-18.00); BUN/Creat Ratio 6.6 Ratio (12.00-20.00); Blood Urea Nitrogen 3.3 mg/dL (9.0-27.0); Calcium 8.3 mg/dL (8.7-10.3); Carbon Dioxide 25.8 mmol/L (20.0-27.5); Globulin 1.8 g/dL (1.6-3.3); Magnesium 1.9 mg/dL (1.5-2.4); Non-African American GFR(CKD) 103.7 (60.0-200.0); Phosphorus 3.4 mg/dL (2.4-5.1); Potassium 3.7 mmol/L (3.5-5.5); Total Bilirubin 0.7 mg/dL (0.30-1.20)
[2022-07-11] MEDS: MULTIVITAMINS, THERA 1 EACH TAB PO SCH (12:18)
[2022-07-11] MEDS: FOLIC ACID 1 MG TAB PO SCH (12:18)
--- NOTE | 2022-07-11 12:40 | P.OBCN ---
History of Present Illness Consult date: 07/11/22 Reason for consult: ovarian cyst (8.6cm thin walled on the right) Chief complaint: fall History of present illness: 62 year old presented to hospital after loss of consciousness and collapsing in the bathroom. She states she's had leg weakness so a MRI was performed. Incidental finding was 8 cm thin-walled cyst on the right ovary. Further investigation of this patient's history reveals that the patient states she hasn't had a true bowel movement since October of last year. All of her bowel movements are very liquidy. Her abdomen is swollen and bloated and growing. She has early satiety. We discussed the ovarian cyst and her symptoms sound that they could be ovarian cancer. Patient is very aware of this. I will order a CA-[address] of the abdomen and pelvis with contrast. If these findings are consistent with ovarian cancer she will need to be seen by DINKEY MOTOR OPERATOR oncology. Review of Systems All systems: negative Constitutional: Denies chills, Denies fever Eyes: denies blurred vision, denies pain Ears, nose, mouth and throat: Denies headache, Denies sore throat Cardiovascular: Denies chest pain, Denies shortness of breath Respiratory: Denies cough Gastrointestinal: Reports abdominal pain, Reports belching, Reports bloating, Reports change in bowel habits, Reports diarrhea, Reports early satiety, Reports indigestion, Denies nausea, Denies vomiting Genitourinary: Denies dysuria, Denies hematuria Musculoskeletal: Denies myalgias Integumentary: Denies pruritus, Denies rash Neurological: Reports numbness, Reports weakness Psychiatric: Denies anxiety, Denies depression Endocrine: Reports fatigue, Denies weight change Past Medical History Past Medical History: Hypertension, Thyroid Disorder Additional Past Medical History / Comment(s): Pt states previous CVA per CT scan when she was in the hospital last with no residual. History of Any Multi-Drug Resistant Organisms: None Reported Past Surgical History: Orthopedic Surgery Additional Past Surgical History / Comment(s): Right knee replacement. Past Anesthesia/Blood Transfusion Reactions: No Reported Reaction Past Psychological History: No Psychological Hx Reported Smoking Status: Current every day smoker Past Alcohol Use History: Daily Past Drug Use History: None Reported Medications and Allergies Home Medications Medication Instructions Recorded Confirmed Type Levothyroxine Sodium [Synthroid] 75 mcg PO DAILY 05/10/21 07/10/22 History Metoprolol Succinate (ER) [Toprol 25 mg PO DAILY 05/10/21 07/10/22 History XL] amLODIPine [Norvasc] 10 mg PO DAILY 05/10/21 07/10/22 History Aspirin EC [Ecotrin Low Dose] 81 mg PO DAILY #30 tab 07/11/22 Rx Atorvastatin [Lipitor] 10 mg PO HS #30 tab 07/11/22 Rx Folic Acid 1 mg PO DAILY@1200 tab 07/11/22 Rx Multivitamins, Thera [Multivitamin 1 each PO DAILY@1200 tab 07/11/22 Rx (formulary)] Pantoprazole [Protonix] 40 mg PO DAILY #30 tab 07/11/22 Rx Thiamine [Vitamin B-1] 100 mg PO DAILY tab 07/11/22 Rx Allergies Allergy/AdvReac Type Severity Reaction Status Date / Time Penicillins AdvReac Vomiting Verified 07/10/22 10:50 Exam Osteopathic Statement: *. No significant issues noted on an osteopathic structural exam other than those noted in the History and Physical/Consult. Vital Signs Temp Pulse Pulse Pulse Pulse Resp BP 07/11/22 11:43 07/11/22 07:00 97.6 F 97 93 106 H 16 127/89 07/11/22 02:06 98.3 F 91 18 07/10/22 19:03 98.7 F 99 96 91 17 116/75 07/10/22 14:16 100 94 112/77 07/10/22 14:13 98.2 F 100 94 94 17 112/77 BP BP BP Pulse Ox FiO2 07/11/22 11:43 93 L 21 07/11/22 07:00 126/81 126/88 92 L 07/11/22 02:06 109/58 95 07/10/22 19:03 112/74 106/70 94 L 07/10/22 14:16 107/73 07/10/22 14:13 107/73 94 L Intake and Output 07/10/22 07/11/22 07/11/22 22:59 06:59 14:59 Intake Total 400 Output Total 450 750 600 Balance -50 -750 -600 Intake: Oral 400 Output: Urine 450 750 600 Other: Voiding Method External Catheter # Voids 1 Abdomen is distended, firm, diffusely tender with palpation. Results Result Diagrams: 07/11/22 06:14 07/11/22 06:14 Abnormal Lab Results - Last 24 Hours (Table) 07/11/22 07/11/22 Range/Units 06:14 06:14 MCHC 31.6 L (32.0-37.0) g/dL Anion Gap 6.20 L (10.00-18.00) mmol/L BUN 3.3 L (9.0-27.0) mg/dL Creatinine 0.5 L (0.6-1.5) mg/dL BUN/Creatinine Ratio 6.60 L (12.00-20.00) Ratio Calcium 8.3 L (8.7-10.3) mg/dL AST 57 H (13-35) U/L Total Protein 5.0 L (6.2-8.2) g/dL Albumin 3.2 L (3.8-4.9) g/dL Assessment and Plan Assessment: 1. Right ovarian cyst. We need to rule out ovarian cancer. CA-125 was ordered as well as CT of abdomen and pelvis with contrast 2. Chronic constipation with diarrhea. Depending on the CT results may need GI consult versus gynecology oncology consult
[2022-07-11] MEDS: IOPAMIDOL CONTRAST (ORAL USE) VIAL PO PRN ×2 (13:07→13:57)
--- NOTE | 2022-07-11 15:10 | P.PN ---
Subjective Progress Note Date: 07/11/22 Josee Mace is a 62 yo F with PMH of HTN, HLD, tobacco and alcohol abuse, brought into the ED via EMS, with alcohol intoxication , dehydration decreased appetite ,increased weakness, found in the bathroom, nearly unresponsive with a serum alcohol level 120. Arterial Doppler outpatient reported right external iliac arterial stenosis, further follow-up outpatient with vascular surgery recommended. Brain CT reported old lacunar infarct right caudate nucleus without change, no acute intracranial abnormality. CT angio head and neck reported negative with minor degenerative disc changes in the lower cervical spine, no fracture. Evaluated by neurology, reporting neurological examination did not show any focal or lateralizing deficits. Denies chest pain palpitations, shortness of breath, diaphoresis, nausea vomiting or tremors. Initially had planned for discharge, performed a lumbar spine CT related to patient's complaints of increased weakness, reporting abnormalities. CT reported multilevel degenerative changes in lumbar spine, not significant change from prior MRI, 8.6 cm cystic lesion worrisome for neoplasm in the right pelvis/ovary. Discharge placed on hold. AC[employer]DE[employer] CONVERTER OPERATOR consulted. Objective - Vital Signs Vital signs: Vital Signs Temp 97.6 F 07/11/22 07:00 Pulse 93 07/11/22 07:00 Resp 16 07/11/22 07:00 BP 126/81 07/11/22 07:00 Pulse Ox 93 L 07/11/22 11:43 FiO2 21 07/11/22 11:43 Intake & Output 07/10/22 07/11/22 07/11/22 18:59 06:59 18:59 Intake Total 300 100 Output Total 450 750 600 Balance -150 -650 -600 Intake: Oral 300 100 Output: Urine 450 750 600 Other: Voiding Method External Catheter # Voids 1 1 - Exam - Exam General: well developed, well nourished, NAD. HEENT: NC/AT, mmm CV: RRR, no murmur Lungs: normal effort, clear throughout Abd: nontender, distended-bloated,+BS Neuro: alert and oriented x3, no focal deficits, no shakes, no tremors Skin: warm and dry - Labs CBC & Chem 7: 07/11/22 06:14 07/11/22 06:14 Labs: Abnormal Lab Results - Last 24 Hours (Table) 07/11/22 07/11/22 Range/Units 06:14 06:14 MCHC 31.6 L (32.0-37.0) g/dL Anion Gap 6.20 L (10.00-18.00) mmol/L BUN 3.3 L (9.0-27.0) mg/dL Creatinine 0.5 L (0.6-1.5) mg/dL BUN/Creatinine Ratio 6.60 L (12.00-20.00) Ratio Calcium 8.3 L (8.7-10.3) mg/dL AST 57 H (13-35) U/L Total Protein 5.0 L (6.2-8.2) g/dL Albumin 3.2 L (3.8-4.9) g/dL Assessment and Plan Assessment: Acute metabolic encephalopathy secondary to Alcohol intoxication,Serum EtOH 120 on admission, in a patient with history of daily alcohol use Dehydration secondary to the above Right ovarian cyst, incidentally noted on LS CT, possible malignancy. Chronic lacunar infarct Chronic minimal stenosis of lumbar spine, severe L5-S1 spondylosis, moderate to severe cervical spine stenosis C5-C6, no surgical intervention recommended as per orthopedic surgery evaluation , on 10/31. Hypertension Hypothyroidism Ongoing nicotine dependence Plan: Continue on current medication regime ,monitoring and symptomatic treatment. Discharge placed on hold, ACETALDEHYDE CONVERTER OPERATOR consulted related to abnormal CT findings of suggested of suspicious right ovarian cyst. Further recommendations to follow. The impression and plan of care has been dictated as directed. : I performed a history and examination of this patient, discussed the same with the dictator. I agree with the dictator's note ,documented as a scribe. Any additional findings or plans will be noted.
--- NOTE | 2022-07-11 15:57 | CT ---
EXAMINATION TYPE: CT abdomen pelvis wo/w con DATE OF EXAM: 07/11/2022 HISTORY: Ovarian ca CT DLP: 1494.8mGycm Automated Exposure Control for Dose Reduction was Utilized. CONTRAST: CT scan of the abdomen and pelvis is performed with oral and without and with IV Contrast, patient in jected with 70 mL of Isovue 300. COMPARISON: Same-day CT lumbar spine. FINDINGS: LUNG BASES: Dependent consolidation and/or atelectasis both lung bases right greater than left. LIVER/GB: Liver is heterogeneously hypodense consistent with diffuse fatty infiltration. There are sm all dependent gallstones and/or gallbladder sludge. PANCREAS: No significant abnormality is seen. SPLEEN: No significant abnormality is seen. ADRENALS: No significant abnormality is seen. KIDNEYS: No renal calculi on noncontrast CT. Postcontrast images show symmetric uptake and excretion without hydronephrosis seen bilaterally. BOWEL: Oral contrast reaches level of the proximal sigmoid colon. No suspicious small or large bowel dilatation. UTERUS/ADNEXA: Anteverted uterus. Right ovary has 8.3 x 4.7 x 7.2 cm thin-walled cyst or cystic lesio n axial image 69 and coronal image 54 without thickened septa or solid nodularity. LYMPH NODES: No greater than 1cm abdominal or pelvic lymph nodes are appreciated. OSSEOUS STRUCTURES: Moderate to severe disc space narrowing with vacuum disc phenomenon at lumbosacra l junction redemonstrated. OTHER: Mild calcified plaque of the aorta extends into branch vessels. Focal more moderate to severe noncalcified plaque in the infrarenal abdominal aorta noted axial image 38. IMPRESSION: 1. Confirmation of abnormal 8.3 cm thin-walled cyst or cystic mass in the right pelvis/ovary suggesti ve of neoplasm. Benign etiology may be present. No abnormal adenopathy or metastatic disease seen. Ad vise gynecology oncology referral to further evaluate and workup.
--- NOTE | 2022-07-11 17:03 | P.PN ---
Subjective Progress Note Date: 07/11/22 Up seeing the patient for the first time during this hospital admission. According to patient she's been having right inguinal pain shooting down with leg weakness and with distention of the abdomen. Patient stated that she's been having lack of appetite. Denies any numbness tingling or lowers. Denies any new weakness of the uppers. Denies any slurring of the speech. As a result of distention of the abdomen she feels she cannot swallow and allow for the past thru. Patient had a CT abdomen and pelvis with and without ordered by the INDUSTRIAL GARAGE SERVICER team is reported as confirmation of abnormal 8.3 cm thin-walled cyst or cystic mass in the right pelvis/ovary suggestive of neoplasm. Benign etiology may be present. No abnormal adenopathy or metastatic disease seen. Patient had a CT of the lumbar spine without contrast during this hospital admissions reported as multilevel degenerative changes in the lumbar spine as detailed above not significantly changed from the prior MRI. Note is made of 8.6 cm cystic lesion worrisome for neoplasm in the right pelvis/ovary. I spoke with the patient's nurse and that she stated that the patient had a moderate amount of bowel movement and was well formed today. I have seen the patient prior to this admission (on 10/19/2021) and at that time she was complaining of paresthesia of entire body with areflexia in the lowers. Patient had at that time MRI of the brain, MRI cervical spine thoracic and lumbar. The MRI the brain is reported as old lacunar infarct in the right caudate nucleus. And nothing that was too remarkable that were the result of her peers degenerative. She also had a CSF study to rule out any GBS which was unremarkable. Patient stated that she had EMG of the upper and lower by her neurology team (Dr. Guevara's N.P.) as an outpatient and was told she had carpal to syndrome and possibly a pinched nerve. Objective - Vital Signs Vital signs: Vital Signs Temp 97.6 F 07/11/22 07:00 Pulse 93 07/11/22 07:00 Resp 16 07/11/22 07:00 BP 126/81 07/11/22 07:00 Pulse Ox 93 L 07/11/22 11:43 FiO2 21 07/11/22 11:43 Intake & Output 07/10/22 07/11/22 07/11/22 18:59 06:59 18:59 Intake Total 300 100 Output Total 450 750 600 Balance -150 -650 -600 Intake: Oral 300 100 Output: Urine 450 750 600 Other: Voiding Method External Catheter # Voids 1 1 - Exam GENERAL: The patient is lying in bed and is not in acute distress. NEUROLOGICAL: Higher mental function: The patient is awake, alert, oriented to self, place and time. Patient is following commands. No aphasia and no neglect. Cranial nerves: The pupils are round, equal and reactive to light and accommod ation. Visual huerta are full to confrontation throughout. Extraocular movement is intact no nystagmus is noted. Facial sensation is normal to touch throughout. The facial strength is normal throughout. Tongue is midline and moved [id number] without any difficulty. No dysarthria is noted. Shoulder shrug is normal bilaterally. Motor: Gait is deferred because of her weakness. The strength is left upper is 4- with normal hand blow machine tender starch spraying. Right lower is 3 while left is 4. Right upper is 5-. Normal tone and bulk. Cerebellum: Normal finger to nose bilaterally. Sensation: Sensation is normal to touch throughout. Reflexes (right/left): uppers is 1-2+ while lowers are 1+ Plantars are mute bilaterally. - Labs CBC & Chem 7: 07/11/22 06:14 07/11/22 06:14 Labs: Abnormal Lab Results - Last 24 Hours (Table) 07/11/22 07/11/22 Range/Units 06:14 06:14 MCHC 31.6 L (32.0-37.0) g/dL Anion Gap 6.20 L (10.00-18.00) mmol/L BUN 3.3 L (9.0-27.0) mg/dL Creatinine 0.5 L (0.6-1.5) mg/dL BUN/Creatinine Ratio 6.60 L (12.00-20.00) Ratio Calcium 8.3 L (8.7-10.3) mg/dL AST 57 H (13-35) U/L Total Protein 5.0 L (6.2-8.2) g/dL Albumin 3.2 L (3.8-4.9) g/dL Assessment and Plan Assessment: Right pelvis/ovarian mass suggestive of neoplasm (8.3 cm) Bilateral leg weakness for the past weeks maybe few (unsure exact time frame): Rule out mets. 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 and Imaging did not reveal any significant contributing factor Hypertension Hyper thousand Nicotine use Significant Alcohol use--patient states is cutting down Plan: vitamin B12: 808, TSH: 0.818. Pending vitamin B6, vitamin B1, vitamin D Dr. Collier recommend MRI Brain w/ and w/o. I recommend to pursue MRI Lumbar w/ and w/o to rule out mets. Physical therapy and Occupation therapy is consulted. INDUSTRIAL GARAGE SERVICER is consulted. Recommend consideration of Oncology team. Patient is on thiamine 100mg daily. Patient is on folic acid 1 mg daily Is on an aspirin of 81 mg daily. Patient was counseled on tobacco cessation alcohol cessation. Patient had MRI of the thoracic and lumbar spine in October 2021 and is reported as facet joint arthroplasty at T10-T11 on the left with osteophyte abutting spinal cord. No evidence of disc herniation or additional significant spinal canal stenosis. No abnormal postcontrast enhancement. Orthopedic team was on board during that visit and no intervention The plan was discussed with the patient and her nurse. Time with Patient: Less than 30
[2022-07-11] MEDS: SODIUM CHLORIDE 0.9% 1,000 ML IV SCH (17:36)
[2022-07-12] MEDS: SODIUM CHLORIDE 0.9% 1,000 ML IV SCH (04:02)
[2022-07-12 07:13] VITALS: BP 97/62; PULSE 92; TEMP 98.5
--- NOTE | 2022-07-12 08:23 | P.PN ---
Progress Note - Text Progress Note Date: 07/12/22 62 year old with 8cm right ovarian cyst. CT was neg for adenopathy, redemonstrated the cyst. The dye reached the proximal sigmoid colon with no issues noted. the CA-125 was 21. Though this could be a benign cyst, it could also be an early ovarian cancer. I would like to send this patient to a lean manager oncologist within the next few weeks to be evaluated for surgical options. Dr Herrera does have a clinic in [place] at least once a month but new patients usually see him at [facility] in [place]. I would rec f/u with his group for this patient. plan discussed with Josee and she understands.
[2022-07-12] MEDS ORDERED: Potassium Replacement Protocol 1 EACH MISC MISCELLANE PRN (09:07)
[2022-07-12] MEDS: ASPIRIN 81 MG PO SCH (09:08)
[2022-07-12] MEDS: METOPROLOL SUCCINATE (ER) 25 MG TAB.ER.24H PO SCH (09:08)
[2022-07-12] MEDS: THIAMINE 100 MG TAB PO SCH (09:08)
[2022-07-12] MEDS: HEPARIN SODIUM,PORCINE/PF 5,000 UNIT/0.5 ML SYRINGE SQ SCH (09:09)
[2022-07-12] MEDS: amLODIPine 10 MG TAB PO SCH (09:09)
[2022-07-12] MEDS: LEVOTHYROXINE 75 MCG TAB PO SCH (09:09)
[2022-07-12] MEDS: PANTOPRAZOLE 40 MG/10 ML VIAL IVP SCH (10:04)
--- NOTE | 2022-07-12 10:41 | P.DS ---
Providers Date of admission: 07/11/22 13:41 Expected date of discharge: 07/12/22 Attending physician: Jacob Ku MD Consults: 07/10/22 03:53 Consult Physician Routine Consulting Provider: Fabiola Collier Consult Reason/Comments: tia Do you want consulting provider notified?: Yes 07/11/22 11:48 Consult Physician Routine Consulting Provider: Lorena Caal Consult Reason/Comments: abn ct, ? R ovarian mass Do you want consulting provider notified?: Yes Primary care physician: Jacob Ku MD Hospital Course: Final Diagnoses: Acute metabolic encephalopathy secondary to Alcohol intoxication,Serum EtOH 120 on admission, in a patient with history of daily alcohol use Dehydration secondary to the above Right ovarian cyst, 8.3 x 4.7 x 7.2 cm thin-walled incidentally noted on LS CT, possible malignancy.CA-125 21.5. Atelectasis Chronic lacunar infarct Chronic minimal stenosis of lumbar spine, severe L5-S1 spondylosis, moderate to severe cervical spine stenosis C5-C6, no surgical intervention recommended as per orthopedic surgery evaluation , on 10/31. Hypertension Hypothyroidism Ongoing nicotine dependence Fatty liver, small dependent gallstones and or gallbladder sludge reported per CT Hospital course:Josee Mace is a 62 yo F with PMH of HTN, HLD, tobacco and alcohol abuse, brought into the ED via EMS, with alcohol intoxication , dehydration decreased appetite ,increased weakness, found in the bathroom, nearly unresponsive with a serum alcohol level 120. Arterial Doppler outpatient reported right external iliac arterial stenosis, further follow-up outpatient with vascular surgery recommended. Brain CT reported old lacunar infarct right caudate nucleus without change, no acute intracranial abnormality. CT angio head and neck reported negative with minor degenerative disc changes in the lower cervical spine, no fracture. Evaluated by neurology, reporting neurological examination did not show any focal or lateralizing deficits. Denies chest pain palpitations, shortness of breath, diaphoresis, nausea vomiting or tremors. Initially had planned for discharge, performed a lumbar spine CT related to patient's complaints of increased weakness, reporting abnormalities. CT reported multilevel degenerative changes in lumbar spine, not significant change from prior MRI, 8.6 cm cystic lesion worrisome for neoplasm in the right pelvis/ovary. Discharge placed on hold. DIRECTOR ENVIRONMENTAL consulted. CA-125 21.5. Abdomen/pelvis CT reported confirmation of abnormal 8.3 cm thin- walled cyst or cystic mass in the right pelvis/ovary suggestive of neoplasm without metastatic disease seen. Possibility of cyst pressing against iliac artery, possibly contributing to bilateral lower extremity weakness. Neurology recommended MRI lumbar spine , patient declined, stating that she will follow-up for further outpatient workup with her own neurologist ,Dr. Guevara. Vague historian,patient reports history of 10 years of IBS followed by constipation/no bowel movements;staff reports patient had a large bowel movement yesterday,ambulated back from the bathroom independently using walker without difficulty.Evaluated by a physical therapy and subacute rehab recommended at discharge Patient will be discharged to subacute rehab. today, in a stable condition with guarded prognosis, pending final DC recommendations and clearance per both neurology and DIRECTOR ENVIRONMENTAL. The impression and plan of care has been dictated as directed. : I performed a history and examination of this patient, discussed the same with the dictator. I agree with the dictator's note ,documented as a scribe. Any additional findings or plans will be noted. Patient Condition at Discharge: Stable Plan - Discharge Summary New Discharge Prescriptions: New Thiamine [Vitamin B-1] 100 mg PO DAILY tab Pantoprazole [Protonix] 40 mg PO DAILY #30 tab Folic Acid 1 mg PO DAILY@1200 tab Multivitamins, Thera [Multivitamin (formulary)] 1 each PO DAILY@1200 tab Aspirin EC [Ecotrin Low Dose] 81 mg PO DAILY #30 tab Atorvastatin [Lipitor] 10 mg PO HS #30 tab Continue Metoprolol Succinate (ER) [Toprol XL] 25 mg PO DAILY Levothyroxine Sodium [Synthroid] 75 mcg PO DAILY amLODIPine [Norvasc] 10 mg PO DAILY Discharge Medication List Levothyroxine Sodium [Synthroid] 75 mcg PO DAILY 05/10/21 [History] Metoprolol Succinate (ER) [Toprol XL] 25 mg PO DAILY 05/10/21 [History] amLODIPine [Norvasc] 10 mg PO DAILY 05/10/21 [History] Aspirin EC [Ecotrin Low Dose] 81 mg PO DAILY #30 tab 07/11/22 [Rx] Atorvastatin [Lipitor] 10 mg PO HS #30 tab 07/11/22 [Rx] Folic Acid 1 mg PO DAILY@1200 tab 07/11/22 [Rx] Multivitamins, Thera [Multivitamin (formulary)] 1 each PO DAILY@1200 tab 07/11/22 [Rx] Pantoprazole [Protonix] 40 mg PO DAILY #30 tab 07/11/22 [Rx] Thiamine [Vitamin B-1] 100 mg PO DAILY tab 07/11/22 [Rx] Follow up Appointment(s)/Referral(s): Jacob Ku MD [Primary Care Provider] - 1 Week Patricia Juarez DO [STAFF PHYSICIAN] - 2 Weeks Doris Horne MD [STAFF PHYSICIAN] - 2 Weeks Deondre Guevara MD [Medical Doctor] - 1 Week Lorena Caal DO [Doctor of Osteopathic Medicine] - 1 Week Activity/Diet/Wound Care/Special Instructions: Alcohol abstinence, nicotine cessation Discharge/Stand Alone Forms: AA Meetings [facility], AA Meetings [facility], Outpatient Counseling Discharge Disposition: TRANSFER TO SNF/ECF
[2022-07-12] MEDS: FOLIC ACID 1 MG TAB PO SCH (12:33)
[2022-07-12] MEDS: MULTIVITAMINS, THERA 1 EACH TAB PO SCH (12:33)
--- NOTE | 2022-07-12 12:45 | P.PN ---
Subjective Progress Note Date: 07/12/22 The patient seen at bedside and according to the patient and her nurse it seems that she's doing better. She is walking on her own using a walker which is drastically better compared to when she was at home. For clarification patient stated that she had the weakness of the left upper extremity that's old but she feels its been since October 2021 due to have generalized numbness and tingling throughout the body. Objective - Vital Signs Vital signs: Vital Signs Temp 98.5 F 07/12/22 07:11 Pulse 92 07/12/22 07:11 Resp 16 07/12/22 09:35 BP 97/62 07/12/22 07:11 Pulse Ox 91 L 07/12/22 07:11 FiO2 21 07/11/22 11:43 Intake & Output 07/11/22 07/12/22 07/12/22 18:59 06:59 18:59 Intake Total 240 Output Total 600 Balance -600 240 Intake: Oral 240 Output: Urine 600 Other: Voiding Method Toilet Toilet # Voids 1 2 # Bowel Movements 1 - Exam GENERAL: The patient is lying in bed and is not in acute distress. NEUROLOGICAL: Higher mental function: The patient is awake, alert, oriented to self, place and time. Patient is following commands. No aphasia and no neglect. Cranial nerves: The pupils are round, equal and reactive to light and accommodation. Visual huerta are full to confrontation throughout. Extraocular movement is intact no nystagmus is noted. Facial sensation is normal to touch throughout. The facial strength is normal throughout. Tongue is midline and moved [id number] without any difficulty. No dysarthria is noted. Shoulder shrug is normal bilaterally. Motor: Gait is deferred because of her weakness. The strength is left upper is 4- with normal hand boom operator. Right lower is 3 while left is 4. Right upper is 5-. Normal tone and bulk. Cerebellum: Normal finger to nose bilaterally. Sensation: Sensation is normal to touch throughout. Reflexes (right/left): uppers is 1-2+ while lowers are 1+ Plantars are mute bilaterally. - Labs CBC & Chem 7: 07/11/22 06:14 07/11/22 06:14 Assessment and Plan Assessment: Right pelvis/ovarian mass suggestive of neoplasm (8.3 cm) and possibly causing mass effect and contributing to her lower extremity weakness. Bilateral leg weakness for the past weeks maybe few (unsure exact time frame). 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 and Imaging did not reveal any significant contributing factor Hypertension Hyper thousand Nicotine use Significant Alcohol use--patient states is cutting down Plan: vitamin B12: 808, TSH: 0.818. Pending vitamin B6, vitamin B1, vitamin D Dr. Collier recommend MRI Brain w/ and w/o. I recommend to pursue MRI Lumbar w/ and w/o because of weakness. Patient stated she does not want to pursue with MRI as inpatient and wants to follow-up as outpatient after seeing GLOBAL TRANSPORTATION MANAGER and Oncologist as outpatient and if after removal of mass does not improve with pursue it. Physical therapy and Occupation therapy is consulted. GLOBAL TRANSPORTATION MANAGER is on board and recommend patient to follow-up with her as outpatient as well with Dr. Herrera (Oncologist as outpatient) Patient is on thiamine 100mg daily. Patient is on folic acid 1 mg daily Is on an aspirin of 81 mg daily. Patient was counseled on tobacco cessation alcohol cessation. Patient needs to follow-up with her neurologist as outpatient within 1-2 weeks. The plan was discussed with the patient, primary team N.P. and her nurse. There is no further neurological work-up. Time with Patient: Less than 30
== END 2022-07-12 13:10 | DRG 896 ==
LOC: EC 00:07 → 6NMEDSUR 03:55 → OBSVTOIN 07-11 13:41
PROVIDERS: ADMIT Family Medicine; ATTEND Family Medicine
DX: F10.129 Alcohol abuse with intoxication, unspecified (principal); G93.41 Metabolic encephalopathy; C56.1 Malignant neoplasm of right ovary; J98.11 Atelectasis; G31.2 Degeneration of nervous system due to alcohol; K76.0 Fatty (change of) liver, not elsewhere classified; E03.9 Hypothyroidism, unspecified; E86.0 Dehydration; I10 Essential (primary) hypertension; E78.5 Hyperlipidemia, unspecified; R47.1 Dysarthria and anarthria; F17.210 Nicotine dependence, cigarettes, uncomplicated; R26.2 Difficulty in walking, not elsewhere classified; G62.9 Polyneuropathy, unspecified; K58.2 Mixed irritable bowel syndrome; M47.27 Other spondylosis with radiculopathy, lumbosacral region; M48.07 Spinal stenosis, lumbosacral region; M48.02 Spinal stenosis, cervical region; M25.78 Osteophyte, vertebrae; K82.8 Other specified diseases of gallbladder; K80.20 Calculus of gallbladder without cholecystitis without obstruction; R68.81 Early satiety; W18.30XA Fall on same level, unspecified, initial encounter; Y90.6 Blood alcohol level of 120-199 mg/100 ml; Z28.310 Unvaccinated for COVID-19; Z96.651 Presence of right artificial knee joint; Z86.73 Personal history of transient ischemic attack (TIA), and cerebral infarction without residual deficits; Y92.012 Bathroom of single-family (private) house as the place of occurrence of the external cause; Z79.899 Other long term (current) drug therapy; Z79.890 Hormone replacement therapy; Z79.82 Long term (current) use of aspirin; Z79.891 Long term (current) use of opiate analgesic; Z88.0 Allergy status to penicillin
CPT/HCPCS: 36415; 70450; 70496; 70498; 72131; 74178; 80053; 80143; 80179; 80306; 80320; 81001; 82607; 82652; 83735; 84100; 84207; 84425; 84443; 84484; 85025; 85610; 85730; 86304; 93005; 94760; 99285

== ENCOUNTER 2022-10-23 13:54 | Inpatient (IN) | payer OTHER ==
[2022-10-23] MEDS ORDERED: SODIUM CHLORIDE 0.9% 1,000 ML IV STA (14:18)
--- NOTE | 2022-10-23 14:56 | ED ---
General Adult HPI - General Source: patient, family, RN notes reviewed, old records reviewed Mode of arrival: wheelchair Limitations: no limitations <Crow Case - Last Filed: 10/23/22 15:46> <Crow Montano - Last Filed: 10/23/22 17:37> - General Chief complaint: Neuro Symptoms/Deficit Stated complaint: TROUBLE WALKING Time Seen by Provider: 10/23/22 14:05 - History of Present Illness Initial comments: 62-year-old female presenting with progressive weakness over the past one year. Patient denies any sudden changes states that is just becoming more difficult for her to ambulate secondary to weakness. This is both arms and both legs. No fever. No back pain. Patient does have a chest pressure and upper abdominal pressure which she also states is been present for the past one year. ( Crow Case) - Related Data Home Medications Medication Instructions Recorded Confirmed Levothyroxine Sodium [Synthroid] 75 mcg PO DAILY 05/10/21 07/10/22 Metoprolol Succinate (ER) [Toprol 25 mg PO DAILY 05/10/21 07/10/22 XL] amLODIPine [Norvasc] 10 mg PO DAILY 05/10/21 07/10/22 Previous Rx's Medication Instructions Recorded Aspirin EC [Ecotrin Low Dose] 81 mg PO DAILY #30 tab 07/11/22 Atorvastatin [Lipitor] 10 mg PO HS #30 tab 07/11/22 Folic Acid 1 mg PO DAILY@1200 tab 07/11/22 Multivitamins, Thera [Multivitamin 1 each PO DAILY@1200 tab 07/11/22 (formulary)] Pantoprazole [Protonix] 40 mg PO DAILY #30 tab 07/11/22 Thiamine [Vitamin B-1] 100 mg PO DAILY tab 07/11/22 Allergies Allergy/AdvReac Type Severity Reaction Status Date / Time Penicillins AdvReac Vomiting Verified 07/10/22 10:50 Review of Systems ROS Other: All systems not noted in ROS Statement are negative. <Crow Case - Last Filed: 10/23/22 15:46> ROS Other: All systems not noted in ROS Statement are negative. <Crow Montano - Last Filed: 10/23/22 17:37> ROS Statement: Those systems with pertinent positive or pertinent negative responses have been documented in the HPI. Past Medical History Past Medical History: CVA/TIA, GERD/Reflux, Hypertension, Thyroid Disorder Additional Past Medical History / Comment(s): Pt states previous CVA per CT scan when she was in the hospital last with no residual. History of Any Multi-Drug Resistant Organisms: None Reported Past Surgical History: Orthopedic Surgery Additional Past Surgical History / Comment(s): Right knee replacement. Past Anesthesia/Blood Transfusion Reactions: No Reported Reaction Past Psychological History: No Psychological Hx Reported Smoking Status: Current every day smoker Past Alcohol Use History: Daily Past Drug Use History: None Reported <Crow Case - Last Filed: 10/23/22 15:46> General Exam Limitations: no limitations General appearance: alert, in no apparent distress Head exam: Present: atraumatic, normocephalic Eye exam: Present: normal appearance ENT exam: Present: mucous membranes dry Neck exam: Present: normal inspection. Absent: tenderness, meningismus Respiratory exam: Present: normal lung sounds bilaterally. Absent: respiratory distress, wheezes Cardiovascular Exam: Present: regular rate, normal rhythm GI/Abdominal exam: Present: soft. Absent: distended, tenderness, guarding, rebound Extremities exam: Present: normal inspection, normal capillary refill. Absent: pedal edema Neurological exam: Present: alert, oriented X3, CN II-XII intact, motor sensory deficit (Generalized nonfocal weakness) Psychiatric exam: Present: normal affect, normal mood Skin exam: Present: warm, dry, intact. Absent: cyanosis, diaphoretic <Crow Case - Last Filed: 10/23/22 15:46> Course <Crow Case - Last Filed: 10/23/22 15:46> Vital Signs 10/23/22 10/23/22 13:58 15:00 Temperature 97.3 F L Pulse Rate 117 H 99 Respiratory 20 18 Rate Blood Pressure 127/95 O2 Sat by Pulse 96 95 Oximetry - Reevaluation(s) Reevaluation #1: 10/23/22 1600 Patient care signed out to Dr. Montano at shift change awaiting results of laboratory testing, chest x-ray, and CT imaging. (Crow Case) EKG Findings - EKG Comments: EKG Findings:: EKG: Shows tachycardia rate of 100 T-wave inversion throughout the precordial leads, no ST segment elevation, artifact limiting assessment. KY interval 177, QRS duration 90, QTC 4:30 <JoanieCrow zayas - Last Filed: 10/23/22 15:46> Medical Decision Making - Lab Data Result diagrams: 10/23/22 14:21 10/23/22 14:21 <Crow Case Donovan - Last Filed: 10/23/22 15:46> - Lab Data Result diagrams: 10/23/22 14:21 10/23/22 14:21 <Crow Montano - Last Filed: 10/23/22 17:37> - Medical Decision Making Was pt. sent in by a medical professional or institution (, PA, HUMAN FACTORS ADVISOR LEAD, urgent care, hospital, or care home...) When possible be specific @ -[No] Did you speak to anyone other than the patient for history (EMS, parent, family, police, friend...)? What history was obtained from this source @ -Patient's Did you review nursing and triage notes (agree or disagree)? Why? @ -[I reviewed and agree with nursing and triage notes] Were old charts reviewed (outside hosp., previous admission, EMS record, old EKG, old radiological studies, urgent care reports/EKG's, care home records)? Report findings @ -[No old charts were reviewed] Differential Diagnosis (chest pain, altered mental status, abdominal pain women, abdominal pain men, vaginal bleeding, weakness, fever, dyspnea, syncope, headache, dizziness, GI bleed, back pain, seizure, CVA, palpatations, mental health, musculoskeletal)? @ Differential Weakness: Hypoglycemia, shock, sepsis, hyponatremia, anemia, infection, UT, ETOH, adverse medicine reaction, overdose, stroke, this is not meant to be an all-inclusive list. EKG interpreted by me (3pts min.). @ -[As above] X-rays interpreted by me (1pt min.). @ Chest x-ray Ordered, results pending CT interpreted by me (1pt min.). @ CT brain ordered results pending U/S interpreted by me (1pt. min.). @ -[None done] What testing was considered but not performed or refused? (CT, X-rays, U/S, labs)? Why? @ -[None] What meds were considered but not given or refused? Why? @ -[None] Did you discuss the management of the patient with other professionals (professionals i.e. , PA, HUMAN FACTORS ADVISOR LEAD, lab, RT, psych nurse, social media campaign manager, salt machine operator, teacher, public information officer, protective services case worker)? Give summary @ -[No] Was smoking cessation discussed for >3mins.? @ -[No] Was critical care preformed (if so, how long)? @ -[No] Were there social determinants of health that impacted care today? How? (Homelessness, low income, unemployed, alcoholism, drug addiction, transporta tion, low edu. Level, literacy, decrease access to med. care, shelter, rehab)? @ Alcohol use Was there de-escalation of care discussed even if they declined (Discuss DNR or withdrawal of care, Hospice)? DNR status @ -[No] What co-morbidities impacted this encounter? (DM, HTN, Smoking, COPD, CAD, Cancer, CVA, ARF, Chemo, Hep., AIDS, mental health diagnosis, sleep apnea, morbid obesity)? @ -Alcohol use Was patient admitted / discharged? Hospital course, mention meds given and route, prescriptions, significant lab abnormalities, going to OR and other pertinent info. @ 62-year-old female with one year of progressive weakness to the point where it is affecting her ability to ambulate. She has generalized weakness in all extremities. Workup is initiated in the emergency department results are pending and patient care signed out at shift change. (Crow Case) - Lab Data Lab Results 10/23/22 10/23/22 10/23/22 Range/Units 14:21 14:21 14:21 WBC 9.1 (3.8-10.6) k/uL RBC 6.12 H (3.80-5.40) m/uL Hgb 18.5 H (11.4-16.0) gm/dL Hct 56.8 H (34.0-46.0) % MCV 92.9 (80.0-100.0) fL MCH 30.3 (25.0-35.0) pg MCHC 32.6 (31.0-37.0) g/dL RDW 13.6 (11.5-15.5) % Plt Count 273 (150-450) k/uL MPV 7.4 Neutrophils % 84 % Lymphocytes % 9 % Monocytes % 5 % Eosinophils % 1 % Basophils % 0 % Neutrophils # 7.6 (1.3-7.7) k/uL Lymphocytes # 0.8 L (1.0-4.8) k/uL Monocytes # 0.4 (0-1.0) k/uL Eosinophils # 0.1 (0-0.7) k/uL Basophils # 0.0 (0-0.2) k/uL PT 12.9 H (9.0-12.0) sec INR 1.3 H (<1.2) APTT 25.3 (22.0-30.0) sec Sodium (137-145) mmol/L Potassium (3.5-5.1) mmol/L Chloride (98-107) mmol/L Carbon Dioxide (22-30) mmol/L Anion Gap mmol/L BUN (7-17) mg/dL Creatinine (0.52-1.04) mg/dL Est GFR (CKD-EPI)AfAm (>60 ml/min/1.73 sqM) Est GFR (CKD-EPI)NonAf (>60 ml/min/1.73 sqM) Glucose (74-99) mg/dL Plasma Lactic Acid Arnel (0.7-2.0) mmol/L Calcium (8.4-10.2) mg/dL Magnesium (1.6-2.3) mg/dL Total Bilirubin (0.2-1.3) mg/dL AST (14-36) U/L ALT (4-34) U/L Alkaline Phosphatase (38-126) U/L Ammonia (<30) umol/L Troponin I (0.000-0.034) ng/mL Total Protein (6.3-8.2) g/dL Albumin (3.5-5.0) g/dL Urine Color Yellow Urine Appearance Clear (Clear) Urine pH 7.0 (5.0-8.0) Ur Specific Blakely 1.017 (1.001-1.035) Urine Protein Trace H (Negative) Urine Glucose (UA) Negative (Negative) Urine Ketones Negative (Negative) Urine Blood Negative (Negative) Urine Nitrite Negative (Negative) Urine Bilirubin Negative (Negative) Urine Urobilinogen 8.0 (<2.0) mg/dL Ur Leukocyte Esterase Negative (Negative) Serum Alcohol mg/dL 05/14/23 05/14/23 05/14/23 Range/Units 14:21 14:21 14:21 WBC (3.8-10.6) k/uL RBC (3.80-5.40) m/uL Hgb (11.4-16.0) gm/dL Hct (34.0-46.0) % MCV (80.0-100.0) fL MCH (25.0-35.0) pg MCHC (31.0-37.0) g/dL RDW (11.5-15.5) % Plt Count (150-450) k/uL MPV Neutrophils % % Lymphocytes % % Monocytes % % Eosinophils % % Basophils % % Neutrophils # (1.3-7.7) k/uL Lymphocytes # (1.0-4.8) k/uL Monocytes # (0-1.0) k/uL Eosinophils # (0-0.7) k/uL Basophils # (0-0.2) k/uL PT (9.0-12.0) sec INR (<1.2) APTT (22.0-30.0) sec Sodium 134 L (137-145) mmol/L Potassium 4.0 (3.5-5.1) mmol/L Chloride 97 L (98-107) mmol/L Carbon Dioxide 29 (22-30) mmol/L Anion Gap 8 mmol/L BUN 13 (7-17) mg/dL Creatinine 0.45 L (0.52-1.04) mg/dL Est GFR (CKD-EPI)AfAm >90 (>60 ml/min/1.73 sqM) Est GFR (CKD-EPI)NonAf >90 (>60 ml/min/1.73 sqM) Glucose 119 H (74-99) mg/dL Plasma Lactic Acid Arnel 1.7 (0.7-2.0) mmol/L Calcium 9.0 (8.4-10.2) mg/dL Magnesium 2.0 (1.6-2.3) mg/dL Total Bilirubin 1.0 (0.2-1.3) mg/dL AST 86 H (14-36) U/L ALT 48 H (4-34) U/L Alkaline Phosphatase 125 (38-126) U/L Ammonia (<30) umol/L Troponin I <0.012 (0.000-0.034) ng/mL Total Protein 6.7 (6.3-8.2) g/dL Albumin 3.7 (3.5-5.0) g/dL Urine Color Urine Appearance (Clear) Urine pH (5.0-8.0) Ur Specific Blakely (1.001-1.035) Urine Protein (Negative) Urine Glucose (UA) (Negative) Urine Ketones (Negative) Urine Blood (Negative) Urine Nitrite (Negative) Urine Bilirubin (Negative) Urine Urobilinogen (<2.0) mg/dL Ur Leukocyte Esterase (Negative) Serum Alcohol mg/dL 10/23/22 10/23/22 Range/Units 16:44 16:44 WBC (3.8-10.6) k/uL RBC (3.80-5.40) m/uL Hgb (11.4-16.0) gm/dL Hct (34.0-46.0) % MCV (80.0-100.0) fL MCH (25.0-35.0) pg MCHC (31.0-37.0) g/dL RDW (11.5-15.5) % Plt Count (150-450) k/uL MPV Neutrophils % % Lymphocytes % % Monocytes % % Eosinophils % % Basophils % % Neutrophils # (1.3-7.7) k/uL Lymphocytes # (1.0-4.8) k/uL Monocytes # (0-1.0) k/uL Eosinophils # (0-0.7) k/uL Basophils # (0-0.2) k/uL PT (9.0-12.0) sec INR (<1.2) APTT (22.0-30.0) sec Sodium (137-145) mmol/L Potassium (3.5-5.1) mmol/L Chloride (98-107) mmol/L Carbon Dioxide (22-30) mmol/L Anion Gap mmol/L BUN (7-17) mg/dL Creatinine (0.52-1.04) mg/dL Est GFR (CKD-EPI)AfAm (>60 ml/min/1.73 sqM) Est GFR (CKD-EPI)NonAf (>60 ml/min/1.73 sqM) Glucose (74-99) mg/dL Plasma Lactic Acid Arnel (0.7-2.0) mmol/L Calcium (8.4-10.2) mg/dL Magnesium (1.6-2.3) mg/dL Total Bilirubin (0.2-1.3) mg/dL AST (14-36) U/L ALT (4-34) U/L Alkaline Phosphatase (38-126) U/L Ammonia 33 H (<30) umol/L Troponin I (0.000-0.034) ng/mL Total Protein (6.3-8.2) g/dL Albumin (3.5-5.0) g/dL Urine Color Urine Appearance (Clear) Urine pH (5.0-8.0) Ur Specific Blakely (1.001-1.035) Urine Protein (Negative) Urine Glucose (UA) (Negative) Urine Ketones (Negative) Urine Blood (Negative) Urine Nitrite (Negative) Urine Bilirubin (Negative) Urine Urobilinogen (<2.0) mg/dL Ur Leukocyte Esterase (Negative) Serum Alcohol <10 mg/dL - Radiology Data Interpreted by me: I did interpret the imaging chest x-ray negative for acute process question atelectasis right base. CT no acute processes seen evidence of old CVA I did discuss findings with patient and her patient has had progressive weakness over last year this was the worse headache she was not able to get up off the floor she was unable ambulate she barely disabling with a walker. She does clinically appear to be dehydrated she has decreased oral intake. She does admit to social smoking she has cut down she states a lot on her alcohol consumption. I did discuss the case with chest pain any covering for Dr. Ku. Patient will be admitted for evaluation treatment of generalized weakness feeling thrive and dehydrationWas pt. sent in by a medical professional or institution (, PA, HUMAN FACTORS ADVISOR LEAD, urgent care, hospital, or care home...) When possible be specific @ -[Dr. Case at our shift change] Did you speak to anyone other than the patient for history (EMS, parent, family, police, friend...)? What history was obtained from this source @ -[Patient and her ] Did you review nursing and triage notes (agree or disagree)? Why? @ -[I reviewed and agree with nursing and triage notes] Were old charts reviewed (outside hosp., previous admission, EMS record, old EKG, old radiological studies, urgent care reports/EKG's, care home records)? Report findings @ -[No old charts were reviewed] Differential Diagnosis (chest pain, altered mental status, abdominal pain women, abdominal pain men, vaginal bleeding, weakness, fever, dyspnea, syncope, headache, dizziness, GI bleed, back pain, seizure, CVA, palpatations, mental health, musculoskeletal)? @ -[Dehydration, neuropathy, alcohol abuse] EKG interpreted by me (3pts min.). @ -[As above] X-rays interpreted by me (1pt min.). @ -[As above] CT interpreted by me (1pt min.). @ -[As above] U/S interpreted by me (1pt. min.). @ -[None done] What testing was considered but not performed or refused? (CT, X-rays, U/S, labs)? Why? @ -[None] What meds were considered but not given or refused? Why? @ -[None] Did you discuss the management of the patient with other professionals (professionals i.e. , PA, HUMAN FACTORS ADVISOR LEAD, lab, RT, psych nurse, social media campaign manager, salt machine operator, teacher, public information officer, protective services case worker)? Give summary @ -[Mary Jeronimo] Was smoking cessation discussed for >3mins.? @ -[Patient has no desire to stop smoking this time] Was critical care preformed (if so, how long)? @ -[No] Were there social determinants of health that impacted care today? How? (Homelessness, low income, unemployed, alcoholism, drug addiction, transportation, low edu. Level, literacy, decrease access to med. care, shelter, rehab)? @ -[History of alcoholism] Was there de-escalation of care discussed even if they declined (Discuss DNR or withdrawal of care, Hospice)? DNR status @ -[No] What co-morbidities impacted this encounter? (DM, HTN, Smoking, COPD, CAD, Cancer, CVA, ARF, Chemo, Hep., AIDS, mental health diagnosis, sleep apnea, morbid obesity)? @ -CVA, smoking, alcohol use, hypertension, hypothyroidism, GERD] Was patient admitted / discharged? Hospital course, mention meds given and route, prescriptions, significant lab abnormalities, going to OR and other pertinent info. @ -[Patient was admitted for inpatient evaluation and treatment she will be given IV fluids and further evaluation.] Undiagnosed new problem with uncertain prognosis? @ -[Generalized weakness, failure to thrive] Drug Therapy requiring intensive monitoring for toxicity (Heparin, Nitro, Insulin, Cardizem)? @ -[No] Were any procedures done? @ -[No] Diagnosis/symptom? @ -[Generalized weakness, failure to thrive, dehydration, history of alcohol abuse, smoking, anorexia] Acute, or Chronic, or Acute on Chronic? @ -[Acute on chronic] Uncomplicated (without systemic symptoms) or Complicated (systemic symptoms)? @ -[default] Side effects of treatment? @ -[No] Exacerbation, Progression, or Severe Exacerbation? @ -[Progression] Poses a threat to life or bodily function? How? (Chest pain, USA, UT, pneumonia, PE, COPD, DKA, ARF, appy, cholecystitis, CVA, Diverticulitis, Homicidal, Suic idal, threat to staff... and all critical care pts) @ -[Anorexia] (Crow Montano) Disposition <Crow Case - Last Filed: 10/23/22 15:46> Decision Date: 10/23/22 Decision Time: 17:35 <Crow Montano - Last Filed: 10/23/22 17:37> Clinical Impression: Generalized weakness, Failure to thrive, Dehydration, Smoker, History of alcohol consumption Disposition: ADMITTED IP TO THIS HOSP Condition: Fair Referrals: Jacob Ku MD [Primary Care Provider] - 1-2 days
[2022-10-23 15:01] LABS: Basophils % (A) 0 %; Eosinophils # (A) 0.1 k/uL (0-0.7); Eosinophils % (A) 1 %; HCT 56.8 % (34.0-46.0); HGB 18.5 gm/dL (11.4-16.0); Lymphocytes # (A) 0.8 k/uL (1.0-4.8); Lymphocytes % (A) 9 %; MCH 30.3 pg (25.0-35.0); MCHC 32.6 g/dL (31.0-37.0); MCV 92.9 fL (80.0-100.0); Mean Platelet Volume 7.4; Monocytes # (A) 0.4 k/uL (0-1.0); Monocytes % (A) 5 %; Neutrophils # (A) 7.6 k/uL (1.3-7.7); Neutrophils % (A) 84 %; Platelet Count 273 k/uL (150-450); RBC 6.12 m/uL (3.80-5.40); RDW 13.6 % (11.5-15.5); WBC 9.1 k/uL (3.8-10.6)
[2022-10-23 15:03] LABS: INR 1.3 (<1.2); Partial Thromboplastin Time 25.3 sec (22.0-30.0); Prothrombin Time 12.9 sec (9.0-12.0)
[2022-10-23 15:23] LABS: ALT 48 U/L (4-34); AST 86 U/L (14-36); African American GFR (CKD) >90 (>60 ml/min/1.73 sqM); Albumin 3.7 g/dL (3.5-5.0); Alkaline Phosphatase 125 U/L (38-126); Anion Gap 8 mmol/L; Blood Urea Nitrogen 13 mg/dL (7-17); Carbon Dioxide 29 mmol/L (22-30); Chloride 97 mmol/L (98-107); Glucose 119 mg/dL (74-99); Non-African American GFR(CKD) >90 (>60 ml/min/1.73 sqM); Sodium 134 mmol/L (137-145); Total Protein 6.7 g/dL (6.3-8.2)
[2022-10-23 15:32] LABS: Appearance,Urine Clear (Clear); Bilirubin,Urine Negative (Negative); Blood,Urine Negative (Negative); Color,Urine Yellow; Glucose,Urine (UA) Negative (Negative); Ketones,Urine Negative (Negative); Leukocyte Esterase,Urine Negative (Negative); Nitrite,Urine Negative (Negative); Protein,Urine Trace (Negative); Specific Gravity,Urine 1.017 (1.001-1.035)
--- NOTE | 2022-10-23 16:20 | XR ---
EXAMINATION TYPE: XR chest 2V DATE OF EXAM: 10/23/2022 COMPARISON: 10/28/2021 INDICATION: Weakness and inability to walk TECHNIQUE: Frontal and lateral views of the chest are obtained. FINDINGS: The heart size is normal. The pulmonary vasculature is normal. Some streak opacities in the right lower lung field. Correlate for atelectasis. Lung huerta otherwise appear clear.. IMPRESSION: 1. Streak atelectasis right lung base
--- NOTE | 2022-10-23 16:32 | CT ---
EXAMINATION TYPE: CT brain wo con DATE OF EXAM: 10/23/2022 COMPARISON: 07/10/2022 INDICATION: ams DLP: 1096.4 mGycm, Automated exposure control for dose reduction was used. CONTRAST: None CT of the brain is performed utilizing 3 mm thick sections through the posterior fossa and 3 mm thick sections through the remaining calvarium. Study is performed within 24 hours of arrival to the hosp ital. No abnormal hyperdensity is present to suggest an acute intracranial hemorrhage. No mass lesion is evident. No acute infarcts are evident. There is an old lacunar infarct in the right caudate head. There is mi nimal periventricular white matter hypodensity, likely on the basis of chronic white matter ischemic changes. Ventricles and sulci are appropriate for the patient age. Paranasal sinuses and mastoid air cells within the [id number] are clear. IMPRESSIONS: 1. No acute intracranial process. Follow-up MRI can be performed as clinically indicated. 2. 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 3. Chronic appearing periventricular white matter ischemic type changes present.
[2022-10-23 17:01] LABS: Alcohol <10 mg/dL
[2022-10-23] MEDS ORDERED: NALOXONE 0.4 MG/ML 1 ML VIAL IV PRN (17:37)
[2022-10-23] MEDS ORDERED: ONDANSETRON 4 MG/2 ML VIAL IVP PRN (17:37)
[2022-10-23] MEDS: SODIUM CHLORIDE 0.9% 1,000 ML IV SCH (17:45)
[2022-10-23] MEDS ORDERED: ATORVASTATIN 10 MG TAB PO SCH (21:00)
[2022-10-23] MEDS: ACETAMINOPHEN TAB 325 MG TAB PO PRN (21:45)
[2022-10-24] MEDS: SODIUM CHLORIDE 0.9% 1,000 ML IV SCH ×3 (03:09→21:22)
[2022-10-24] MEDS: LEVOTHYROXINE 75 MCG TAB PO SCH (05:14)
[2022-10-24] MEDS: ACETAMINOPHEN TAB 325 MG TAB PO PRN (05:14)
[2022-10-24] MEDS ORDERED: PANTOPRAZOLE 40 MG TABLET PO SCH (07:30)
[2022-10-24] MEDS: ASPIRIN 81 MG PO SCH (08:46)
[2022-10-24] MEDS: PANTOPRAZOLE 40 MG/10 ML VIAL IV SCH (08:46)
[2022-10-24] MEDS: METOPROLOL SUCCINATE (ER) 25 MG TAB.ER.24H PO SCH (08:46)
[2022-10-24] MEDS: amLODIPine 10 MG TAB PO SCH (08:46)
[2022-10-24] MEDS ORDERED: THIAMINE 100 MG TAB PO SCH (09:00)
[2022-10-24] MEDS: HYDROcodone/APAP 5-325MG 1 EACH TAB PO PRN ×2 (09:34→22:07)
[2022-10-24] MEDS: IOPAMIDOL CONTRAST (ORAL USE) VIAL PO PRN ×2 (09:35→10:53)
--- NOTE | 2022-10-24 11:50 | P.CONS ---
History of Present Illness - Reason for Consult Consult date: 10/24/22 Constipation, abdominal pain Requesting physician: Jacob Ku - Chief Complaint Weakness, numbness tingling to upper extremities - History of Present Illness This pleasant 62-year-old female with a medical history including hypertension, thyroid disorder Osman, TIA, alcohol abuse/dependency, with ongoing complaints of constipation, abdominal pain, chest pressure and numbness and tingling of bilateral upper and lower extremities for the last 1 year duration. Patient has been seen and admitted to the hospital in June for same complaints. At that time she had a neurology workup and followed up with neurology at Dr. Guevara's office for EMG and was told that she had some nerve compression as well as carpal tunnel syndrome. Patient states that she has been feeling weak and has passed out and falling. She has a history of the daily alcohol use however states that she has cut back and now is not drinking daily. Admits to drinking Cristobal's hard lemonade. States she's had issues with constipation and was diagnosed with IBS over 10 years ago. First reported she had no bowel movement since June however states that she does actually have bowel movements but this small round hard jaun come out. She does not follow with any bloody for her IBS. No previous colonoscopy and states she believes she had an EGD done at age 24 to look for ulcers. Patient denies any difficulty with swallowing states that she has constant chest pressure every day for the last 1 year duration. She denies any nausea or vomiting. Denies any blood in her stool. States she has no previous history of liver disease despite having elevated ammonia level. CT abdomen and pelvis with contrast ordered. Patient currently drinking her contrast. Labs WBC 9.1 hemoglobin 18.5 hematocrit 56.8 INR 1.3 sodium 134 potassium 4.0 BUN 13 creatinine 0.4 total bilirubin 1.0 AST 86 ALT 40 alkaline phosphatase 125 of pneumonia 33 TSH 0.865 Review of Systems REVIEW OF SYSTEMS: CARDIOPULMONARY: Chest pain/pressure 1 year. No shortness of breath. Gastrointestinal: Diffuse abdominal pain. No nausea or vomiting. No hematemesis, coffee-ground emesis. No rectal bleeding, or melena. Chronic constipation. GENITOURINARY: No dysuria or hematuria. MUSCULOSKELETAL: Reports normal range of motion. Joint pain. SKIN: No rashes. No jaundice. ENDOCRINE: No chills, fevers. No excessive weight gain or loss. No polydipsia or polyuria. PSYCHIATRIC: Unremarkable. NEUROLOGY: Complaints of numbness and tingling and weakness in bilateral upper and lower extremities. Patient states she just blacks out and passes out. ENT: Vision unremarkable. CONSTITUTIONAL: No recent weight loss. No fever, chills, night sweats. Past Medical History Past Medical History: CVA/TIA, GERD/Reflux, Hypertension, Thyroid Disorder Additional Past Medical History / Comment(s): Pt states previous CVA per CT scan when she was in the hospital last with no residual. History of Any Multi-Drug Resistant Organisms: None Reported Past Surgical History: Orthopedic Surgery Additional Past Surgical History / Comment(s): Right knee replacement. Past Anesthesia/Blood Transfusion Reactions: No Reported Reaction Past Psychological History: No Psychological Hx Reported Smoking Status: Current every day smoker Past Alcohol Use History: Daily Past Drug Use History: None Reported - Past Family History Mother Family Medical History: Diabetes Mellitus Father Additional Family Medical History / Comment(s): Heart disease Daughter(s) Family Medical History: Renal Disease Medications and Allergies Home Medications Medication Instructions Recorded Confirmed Type Levothyroxine Sodium [Synthroid] 75 mcg PO DAILY 05/10/21 10/23/22 History Metoprolol Succinate (ER) [Toprol 25 mg PO DAILY 05/10/21 10/23/22 History XL] amLODIPine [Norvasc] 10 mg PO DAILY 05/10/21 10/23/22 History Aspirin EC [Ecotrin Low Dose] 81 mg PO DAILY #30 tab 07/11/22 10/23/22 Rx Folic Acid 1 mg PO DAILY@1200 tab 07/11/22 10/23/22 Rx HYDROcodone/APAP 7.5-325MG [[place] 1 tab PO Q6H PRN 10/23/22 10/23/22 History 7.5-325] Ibuprofen [Motrin] 600 mg PO Q6HR PRN 10/23/22 10/23/22 History Allergies Allergy/AdvReac Type Severity Reaction Status Date / Time Penicillins AdvReac Vomiting Verified 10/23/22 18:41 Physical Exam Vitals: Vital Signs Temp Pulse Pulse Resp BP BP Pulse Ox 10/24/22 07:17 97.8 F 91 16 121/78 96 10/24/22 02:26 16 93 L 10/24/22 02:00 98.0 F 95 16 104/66 88 L 10/23/22 21:16 18 10/23/22 19:56 98.6 F 65 18 119/83 93 L 10/23/22 19:26 91 18 115/80 97 10/23/22 17:40 95 10/23/22 17:38 98.5 F 92 18 111/76 92 L 10/23/22 15:00 99 18 127/95 95 10/23/22 13:58 97.3 F L 117 H 20 96 Intake and Output 10/23/22 10/24/22 10/24/22 22:59 06:59 14:59 Intake Total 120 120 Output Total 1100 850 Balance 120 -980 -850 Intake: Oral 120 120 Output: Urine 1100 850 Other: Voiding Method External Catheter External Catheter Weight 77.564 kg General appearance: The patient is alert, oriented, appears in no acute distress. HET: Head is normocephalic and atraumatic. Conjunctiva pink. Sclera anicteric. Neck: Supple without lymphadenopathy. Trachea midline. Heart: S1 S2. Regular rate and rhythm. Lungs: Clear to auscultation. Abdomen: Soft, mild diffuse tenderness, slightly distended, surgical incisions well approximated. No guarding or rigidity. Skin: No rashes. No jaundice. Extremities: Normal skin color and turgor. No pedal edema. Neurological: No focal deficits. Alert and oriented x3. Results CBC & Chem 7: 10/23/22 14:21 10/23/22 14:21 Labs: Abnormal Lab Results - Last 24 Hours (Table) 10/23/22 10/23/22 10/23/22 Range/Units 14:21 14:21 14:21 RBC 6.12 H (3.80-5.40) m/uL Hgb 18.5 H (11.4-16.0) gm/dL Hct 56.8 H (34.0-46.0) % Lymphocytes # 0.8 L (1.0-4.8) k/uL PT 12.9 H (9.0-12.0) sec INR 1.3 H (<1.2) Sodium (137-145) mmol/L Chloride (98-107) mmol/L Creatinine (0.52-1.04) mg/dL Glucose (74-99) mg/dL AST (14-36) U/L ALT (4-34) U/L Ammonia (<30) umol/L Urine Protein Trace H (Negative) 10/23/22 10/23/22 Range/Units 14:21 16:44 RBC (3.80-5.40) m/uL Hgb (11.4-16.0) gm/dL Hct (34.0-46.0) % Lymphocytes # (1.0-4.8) k/uL PT (9.0-12.0) sec INR (<1.2) Sodium 134 L (137-145) mmol/L Chloride 97 L (98-107) mmol/L Creatinine 0.45 L (0.52-1.04) mg/dL Glucose 119 H (74-99) mg/dL AST 86 H (14-36) U/L ALT 48 H (4-34) U/L Ammonia 33 H (<30) umol/L Urine Protein (Negative) Assessment and Plan (1) Abdominal pain Narrative/Plan: A 62-year-old female with long-standing history of alcohol abuse who was a daily drinker who now states she's drinking maybe one a day prefers Cristobal's hard lemonade presented to the emergency department with ongoing complaints of upper and lower extremity numbness and tingling and weakness. States she's had episo andres where she is passing out and falling. States she has had problems with constipation over the last 1 year duration. She has not had any follow-up in the outpatient setting, she actually has not had much follow-up in outpatient setting with any recommended to PCP or consultants due to insurance issues according to the patient. She states that she was diagnosed with IBS greater than 10 years ago. States she will have episodes where she will have diarrhea multiple times in one day but generally she has constipation. Denies any previous colonoscopy. No rectal bleeding. Bowel movements are usually hard small and round. She was recently hospitalized in June with same complaints and she had a CT of the abdomen and pelvis that showed no acute findings within the colon. She did have a large ovarian mass that she was referred to gynecology oncologist and had ovarian mass removal which she states was benign. Currently awaiting CT abdomen and pelvis. No nausea vomiting. Patient with elevated LFTs, elevated ammonia likely related to some underlying liver disease from CALL abuse. Will start patient on lactulose 30 g 3 times a day for both hyperammonia anemia as well as constipation. Can adjust as needed. Further recommendations forthcoming based on CT abdomen and pelvis. Discussed importance of outpatient follow-up with patient. Will need to follow-up with GI for IBS and schedule outpatient colonoscopy. Current Visit: Yes Status: Acute Code(s): R10.9 - UNSPECIFIED ABDOMINAL PAIN SNOMED Code(s): 61758286 (2) Constipation Current Visit: Yes Status: Acute Code(s): K59.00 - CONSTIPATION, UNSPECIFIED SNOMED Code(s): 32642691 (3) Alcohol abuse Current Visit: Yes Status: Acute Code(s): F10.10 - ALCOHOL ABUSE, UNCOMPLICATED SNOMED Code(s): 27744965 (4) Generalized weakness Current Visit: Yes Status: Acute Code(s): R53.1 - WEAKNESS SNOMED Code(s): 43027921 (5) Hyperammonemia Current Visit: Yes Status: Acute Code(s): E72.20 - DISORDER OF UREA CYCLE METABOLISM, UNSPECIFIED SNOMED Code(s): 5967708 Plan: 1. Continue symptomatic and supportive care 2. Diet as tolerated 3. Lactulose 30 g 3 times a day, titrate to have 3-4 bowel movements a day 4. Repeat ammonia tomorrow 5. Discussed importance of alcohol abstinence with patient 6. CT abdomen and pelvis ordered by PCP, currently pending 7. Recommend outpatient follow-up for IBS and outpatient colonoscopy Thank you for this consultation, we will continue to follow. Dr. Freda Horne I agree with the dictator's note, documented as a scribe by Patti Purcell.
[2022-10-24] MEDS ORDERED: MULTIVITAMINS, THERA 1 EACH TAB PO SCH (12:00)
--- NOTE | 2022-10-24 12:32 | CT ---
EXAMINATION TYPE: CT abdomen pelvis w con DATE OF EXAM: 10/24/2022 COMPARISON: 07/11/2022 HISTORY: abdominal pain, constipation history of ovarian cancer. CT DLP: 534.1 mGycm Automated exposure control for dose reduction was used. TECHNIQUE: Helical acquisition of images was performed from the lung bases through the pelvis. CONTRAST: Performed with Oral Contrast and with IV Contrast, patient injected with 100 mL of Isovue 300. FINDINGS: There is persistent mild atelectasis/infiltrate in the lung bases, right greater than left. There is mild cholelithiasis but the gallbladder wall was not thickened and there is no pericholecyst ic fluid or gallbladder distention. There is no biliary ductal dilatation. There is fatty infiltration of the liver. There is no abnormality of the pancreas, spleen or adrenal glands. The kidneys enhance promptly and symmetrically and there is no solid renal mass or hydronephrosis. Th ere is a small simple cortical cyst of the anterior left kidney. The caliber the abdominal aorta is normal and there is no retroperitoneal adenopathy or hemorrhage. The bowel loops are normal in caliber is no dilatation or obstruction. No inflammatory changes are id entified in the bowel wall or mesentery. There is no free intraperitoneal air or fluid. There is no pelvic mass or adenopathy. The large right adnexal masses seen on the prior study has res olved. The osseous structures are intact. In the subcutaneous tissues of the anterior right abdominal wall, there is a 9.2 x 36.5 mm well-circu mscribed mass/fluid collection which was not present on the prior study. This possibly is postsurgica l in nature and clinical correlation is recommended. IMPRESSION: 1. No change in the mild atelectasis/infiltrate in the bilateral lung bases right greater than left. 2. Cholelithiasis. 3. Fatty infiltration liver 4. Right anterior abdominal wall mass/fluid collection, see above. 5. Resolution of the large right adnexal mass seen on the prior study
[2022-10-24] MEDS: 1: MVI, ADULT NO.4 WITH VIT K 10 ML, THIAMINE 100 MG, FOLIC ACID 1 MG in SODIUM CHLORIDE IV SCH ×8 (12:54→22:02)
[2022-10-24] MEDS: FOLIC ACID 1 MG TAB PO SCH (12:54)
[2022-10-24] MEDS: LACTULOSE 20 GM/30 ML CUP PO SCH ×3 (13:49→22:03)
[2022-10-24] MEDS: polyethylene glycoL 3350 17 GM POWD.PACK PO SCH ×2 (13:50→13:51)
--- NOTE | 2022-10-24 17:47 | P.HPIM ---
History of Present Illness H&P Date: 10/24/22 Chief Complaint: Weakness of all 4 extremities, abdominal pain This is a 62-year-old female with PMH of HTN, HLD, tobacco and alcohol abuse, recently admitted with alcohol intoxication-serum alcohol level 120, June, presented to the ER with complaints of progressive weakness in all 4 extremities over the last year. Denies back pain. Denies fever or chills. Rep orts chest pressure 1 year, midsternal with shortness of breath and nausea accompanied by bloating .Denies prior endoscopies. She recently had a full cardiac workup. Regarding her right ovarian cyst, suspected malignancy, reported on CT in June 2022; patient states she followed up with both on cology out of [place] and was referred to [facility] [employer] Dr. Ramos in [place], ovarian mass removed and states it was negative for cancer. Patient reports a history of IBS greater than 10 years, chronic constipation. On last discharge patient had been instructed to take MiraLAX daily, patient was noncompliant. Patient has not followed up with PCPs office since June admission. Patient proceeds to inform us that she has significant abdominal bloating, tender and unable to sleep on her stomach. States she is unable to walk. Reports she has decreased her alcohol intake from 4-5 "tall boys" down to 1 daily. Also reports she has a very dry mouth has not been eating except for little spoonfulls. Patient also reports she has had no bowel movement since her prior discharge on July 12. Upon requestioning, patient stated "barely minimal small jaun daily, but that doesn't count". WBC 9.1 hemoglobin 18.5 hematocrit 56.8, MCV 92.9, platelets 273, INR 1.3 sodium 134 potassium 4.0 BUN 13 creatinine 0.4 total bilirubin 1.0 AST 86 ALT 48 alkaline phosphatase 125, ammonia 33 , troponin negative 1 ,TSH 0.865. UA negative, serum alcohol less than 10. Review of Systems ROS Statement: Those systems with pertinent positive or pertinent negative responses have been documented in the HPI. ROS Other: All systems not noted in ROS Statement are negative. Past Medical History Past Medical History: CVA/TIA, GERD/Reflux, Hypertension, Thyroid Disorder Additional Past Medical History / Comment(s): Pt states previous CVA per CT scan when she was in the hospital last with no residual. History of Any Multi-Drug Resistant Organisms: None Reported Past Surgical History: Orthopedic Surgery Additional Past Surgical History / Comment(s): Right knee replacement. Past Anesthesia/Blood Transfusion Reactions: No Reported Reaction Past Psychological History: No Psychological Hx Reported Smoking Status: Current every day smoker Past Alcohol Use History: Daily Past Drug Use History: None Reported - Past Family History Mother Family Medical History: Diabetes Mellitus Father Additional Family Medical History / Comment(s): Heart disease Daughter(s) Family Medical History: Renal Disease Medications and Allergies Home Medications Medication Instructions Recorded Confirmed Type Levothyroxine Sodium [Synthroid] 75 mcg PO DAILY 05/10/21 10/23/22 History Metoprolol Succinate (ER) [Toprol 25 mg PO DAILY 05/10/21 10/23/22 History XL] amLODIPine [Norvasc] 10 mg PO DAILY 05/10/21 10/23/22 History Aspirin EC [Ecotrin Low Dose] 81 mg PO DAILY #30 tab 07/11/22 10/23/22 Rx Folic Acid 1 mg PO DAILY@1200 tab 07/11/22 10/23/22 Rx HYDROcodone/APAP 7.5-325MG [[place] 1 tab PO Q6H PRN 10/23/22 10/23/22 History 7.5-325] Ibuprofen [Motrin] 600 mg PO Q6HR PRN 10/23/22 10/23/22 History Allergies Allergy/AdvReac Type Severity Reaction Status Date / Time Penicillins AdvReac Vomiting Verified 10/23/22 18:41 Physical Exam Vitals: Vital Signs Temp Pulse Pulse Resp BP BP Pulse Ox 10/24/22 11:25 97.7 F 84 16 118/76 96 10/24/22 07:17 97.8 F 91 16 121/78 96 10/24/22 02:26 16 93 L 10/24/22 02:00 98.0 F 95 16 104/66 88 L 10/23/22 21:16 18 10/23/22 19:56 98.6 F 65 18 119/83 93 L 10/23/22 19:26 91 18 115/80 97 10/23/22 17:40 95 10/23/22 17:38 98.5 F 92 18 111/76 92 L Intake and Output 10/24/22 10/24/22 10/24/22 06:59 14:59 22:59 Intake Total 120 Output Total 1100 1050 Balance -980 -1050 Intake: Oral 120 Output: Urine 1100 1050 Other: Voiding Method External Catheter # Bowel Movements 1 General: well developed, well nourished, NAD. HEENT: NC/AT, mmm CV: RRR, no murmur Lungs: normal effort, clear throughout Abd: Soft ,distended-bloated, diffuse tenderness, +BS Neuro: alert and oriented x3, no focal deficits, no shakes, no tremors Skin: warm and dry Results CBC & Chem 7: 10/23/22 14:21 10/23/22 14:21 Labs: Abnormal Lab Results - Last 24 Hours (Table) 10/23/22 Range/Units 16:44 Ammonia 33 H (<30) umol/L Thrombosis Risk Factor Assmnt - Choose All That Apply Any of the Below Risk Factors Present?: No Other Risk Factors: Yes Each Risk Factor Represents 2 Points: Age 61-74 years Thrombosis Risk Factor Assessment Total Risk Factor Score: 2 Thrombosis Risk Factor Assessment Level: Low Risk Assessment and Plan Assessment: Abdominal pain,in a patient with history significant for chronic constipation-noncompliant with MiraLAX, alcohol abuse, reports history of IBS greater than 10 years . Progressive weakness in all 4 extremities with inability to walk. Hyperammonemia History of Right ovarian cyst, 8.3 x 4.7 x 7.2 cm thin-walled incidentally noted on LS CT 07/04, possible malignancy.CA-125 21.5. Reports followed up with oncology and [facility], in [facility] , ovarian mass removed and states it was benign. Chronic lacunar infarct Chronic minimal stenosis of lumbar spine, severe L5-S1 spondylosis, moderate to severe cervical spine stenosis C5-C6, no surgical intervention recommended as per orthopedic surgery evaluation , on 10/31. Hypertension Hypothyroidism Ongoing nicotine dependence Fatty liver, small dependent gallstones and or gallbladder sludge reported per CT, Jun 2022 Plan: Continue on current medication regime ,monitoring and symptomatic treatment. CA 125 ordered. MiraLAX, banana bag , vitamin supplements , ordered . PT/OT ,GI and neurology consulted.CT of abdomen/pelvis with contrast ordered related to patient's current complaints of abdominal pain. Lactulose initiated, Close monitoring of ammonia levels with repeat levels tomorrow. The impression and plan of care has been dictated as directed. : I performed a history and examination of this patient, discussed the same with the dictator. I agree with the dictator's note ,documented as a scribe. Any additional findings or plans will be noted.
[2022-10-25] MEDS: SODIUM CHLORIDE 0.9% 1,000 ML IV SCH ×3 (01:43→17:56)
[2022-10-25] MEDS: HYDROcodone/APAP 5-325MG 1 EACH TAB PO PRN ×3 (05:12→22:27)
[2022-10-25] MEDS: LEVOTHYROXINE 75 MCG TAB PO SCH (05:12)
[2022-10-25] MEDS ORDERED: LACTULOSE 20 GM/30 ML CUP PO SCH (09:00)
[2022-10-25] MEDS: PANTOPRAZOLE 40 MG/10 ML VIAL IV SCH (09:07)
[2022-10-25] MEDS: amLODIPine 10 MG TAB PO SCH (09:07)
[2022-10-25] MEDS: METOPROLOL SUCCINATE (ER) 25 MG TAB.ER.24H PO SCH (09:07)
[2022-10-25] MEDS: ASPIRIN 81 MG PO SCH (09:07)
[2022-10-25 09:44] LABS: Basophils # (A) 0.04 X 10*3/uL (0.00-0.10); Basophils % (A) 0.6 %; Eosinophils # (A) 0.21 X 10*3/uL (0.04-0.35); HGB 14.7 g/dL (12.0-15.0); Immature Grans, Automated 0.3 %; Lymphocytes % (A) 17.1 %; MCH 29.2 pg (27.0-32.0); MCHC 31.3 g/dL (32.0-37.0); MCV 93.4 fL (80.0-97.0); Mean Platelet Volume 9.8 fL (9.5-12.2); Monocytes # (A) 0.62 X 10*3/uL (0.20-1.00); Monocytes % (A) 8.8 %; NRBC Per 100 WBC 0 /100 WBCS (0.0-0.0); Neutrophils # (A) 4.92 X 10*3/uL (1.80-7.70); Neutrophils % (A) 70.2 %; Platelet Count 249 X 10*3/uL (140-440); RBC 5.03 X 10*6/uL (4.10-5.20); RDW 14.1 % (11.5-14.5); WBC 7.01 X 10*3/uL (4.50-10.00)
[2022-10-25 10:16] LABS: African American GFR (CKD) 142.2 (60.0-200.0); Anion Gap 12.4 mmol/L (10.00-18.00); BUN/Creat Ratio 9.67 Ratio (12.00-20.00); Blood Urea Nitrogen 2.9 mg/dL (9.0-27.0); Calcium 8.4 mg/dL (8.7-10.3); Carbon Dioxide 21.6 mmol/L (20.0-27.5); Non-African American GFR(CKD) 122.7 (60.0-200.0); Potassium 3.7 mmol/L (3.5-5.5)
[2022-10-25] MEDS: PYRIDOXINE 50 MG TAB PO SCH (12:18)
[2022-10-25] MEDS: FOLIC ACID 1 MG TAB PO SCH (12:18)
--- NOTE | 2022-10-25 12:18 | P.PN ---
Subjective Progress Note Date: 10/25/22 Principal diagnosis: Constipation This pleasant 62-year-old female with a medical history including hypertension, thyroid disorder Osman, TIA, alcohol abuse/dependency, with ongoing complaints of constipation, abdominal pain, chest pressure and numbness and tingling of bilateral upper and lower extremities for the last 1 year duration. Patient has been seen and admitted to the hospital in June for same complaints. At that time she had a neurology workup and followed up with neurology at Dr. Guevara's office for EMG and was told that she had some nerve compression as well as carpal tunnel syndrome. Patient states that she has been feeling weak and has passed out and falling. She has a history of the daily alcohol use however states that she has cut back and now is not drinking daily. Admits to drinking Cristobal's hard lemonade. States she's had issues with constipation and was diagnosed with IBS over 10 years ago. First reported she had no bowel movement since June however states that she does actually have bowel movements but this small round hard jaun come out. She does not follow with any bloody for her IBS. No previous colonoscopy and states she believes she had an EGD done at age 24 to look for ulcers. Patient denies any difficulty with swallowing states that she has constant chest pressure every day for the last 1 year duration. She denies any nausea or vomiting. Denies any blood in her stool. States she has no previous history of liver disease despite having elevated ammonia level. CT abdomen and pelvis with contrast ordered. Patient currently drinking her contrast. 10/25/2022: Patient seen and examined today as a follow-up. Patient seems more appropriate with conversation. She was started on lactulose yesterday and he had at least 4 bowel movements. Ammonia level down to 24 from 33. Abdominal pain improving. She had a CT of the abdomen and pelvis yesterday that did show fatty infiltration of liver, cholelithiasis, and right abdominal mass/fluid collection. She denies any nausea or vomiting, she's been afebrile. No blood in her stool reported. Objective - Vital Signs Vital signs: Vital Signs Temp 97.6 F 10/25/22 07:18 Pulse 91 10/25/22 07:18 Resp 16 10/25/22 07:18 BP 112/71 10/25/22 07:18 Pulse Ox 92 L 10/25/22 07:18 FiO2 Intake & Output 10/24/22 10/25/22 10/25/22 18:59 06:59 18:59 Intake Total 118 Output Total 1050 Balance -1050 118 Intake: Oral 118 Output: Urine 1050 Other: Voiding Method External Catheter Bedside Commode Diaper Incontinent # Voids 1 1 # Bowel Movements 1 1 - Exam General appearance: The patient is alert, oriented, appears in no acute distress. HET: Head is normocephalic and atraumatic. Conjunctiva pink. Sclera anicteric. Neck: Supple without lymphadenopathy. Abdomen: Soft, nontender, nondistended with bowel sounds. No guarding or rigidity. Extremities: Normal skin color and turgor. No pedal edema Skin: No rashes, no jaundice Neurological: No focal deficits. Alert and oriented. - Labs CBC & Chem 7: 10/25/22 05:30 10/25/22 05:30 Labs: Abnormal Lab Results - Last 24 Hours (Table) 10/25/22 10/25/22 Range/Units 05:30 05:30 Hct 47.0 H (37.2-46.3) % MCHC 31.3 L (32.0-37.0) g/dL BUN 2.9 L (9.0-27.0) mg/dL Creatinine 0.3 L (0.6-1.5) mg/dL BUN/Creatinine Ratio 9.67 L (12.00-20.00) Ratio Calcium 8.4 L (8.7-10.3) mg/dL Assessment and Plan (1) Abdominal pain Narrative/Plan: A 62-year-old female with long-standing history of alcohol abuse who was a daily drinker who now states she's drinking maybe one a day prefers Cristobal's hard lemonade presented to the emergency department with ongoing complaints of upper and lower extremity numbness and tingling and weakness. States she's had episodes where she is passing out and falling. States she has had problems with constipation over the last 1 year duration. She has not had any follow-up in the outpatient setting, she actually has not had much follow-up in outpatient setting with any recommended to PCP or consultants due to insurance issues according to the patient. She states that she was diagnosed with IBS greater than 10 years ago. States she will have episodes where she will have diarrhea multiple times in one day but generally she has constipation. Denies any previous colonoscopy. No rectal bleeding. Bowel movements are usually hard small and round. She was recently hospitalized in June with same complaints and she had a CT of the abdomen and pelvis that showed no acute findings within the colon. She did have a large ovarian mass that she was referred to gynecology oncologist and had ovarian mass removal which she states was benign. Currently awaiting CT abdomen and pelvis. No nausea vomiting. Patient with mariana vated LFTs, elevated ammonia likely related to some underlying liver disease from CALL abuse. Will start patient on lactulose 30 g 3 times a day for both hyperammonia anemia as well as constipation. Can adjust as needed. Further recommendations forthcoming based on CT abdomen and pelvis. Discussed importance of outpatient follow-up with patient. Will need to follow-up with GI for IBS and schedule outpatient colonoscopy. Abdominal pain and bloating improved. Patient had 4 more bowel movements yesterday and through the night. Likely related to constipation however need to consider findings on abdominal CAT scan showing right quadrant mass/fluid collection. Current Visit: Yes Status: Acute Code(s): R10.9 - UNSPECIFIED ABDOMINAL PAIN SNOMED Code(s): 52654916 (2) Constipation Narrative/Plan: Improved with lactulose. Current Visit: Yes Status: Acute Code(s): K59.00 - CONSTIPATION, UNSPECIFIED SNOMED Code(s): 77581233 (3) Alcohol abuse Current Visit: Yes Status: Acute Code(s): F10.10 - ALCOHOL ABUSE, UNCOMPLICATED SNOMED Code(s): 48171491 (4) Generalized weakness Current Visit: Yes Status: Acute Code(s): R53.1 - WEAKNESS SNOMED Code(s): 55880483 (5) Hyperammonemia Narrative/Plan: Improved with lactulose. Repeat ammonia 24 down from 33. We'll decrease lactulose to 30 g twice a day. Current Visit: Yes Status: Acute Code(s): E72.20 - DISORDER OF UREA CYCLE METABOLISM, UNSPECIFIED SNOMED Code(s): 2736368 (6) Alcoholic liver disease Narrative/Plan: Patient with long history of alcohol abuse/dependence. CAT scan abdomen and pelvis with findings of fatty infiltration of liver, hepatomegaly. Discussed with patient importance of alcohol abstinence to help reduce further injury to the liver. Patient verbalized understanding. Recommend outpatient follow-up with gastroenterology. Current Visit: Yes Status: Acute Code(s): K70.9 - ALCOHOLIC LIVER DISEASE, UNSPECIFIED SNOMED Code(s): 71730956 Plan: 1. Continue symptomatic and supportive care 2. Diet as tolerated 3. Decrease lactulose to 30 g daily 4. Discussed importance of alcohol abstinence with patient 5. CT abdomen and pelvis reviewed 6. Recommend outpatient follow-up for IBS and outpatient colonoscopy as well at liver surveillance Thank you for this consultation, we will continue to follow. Dr. Freda Horne I agree with the dictator's note, documented as a scribe by Patti Purcell.
[2022-10-25] MEDS: 1: MVI, ADULT NO.4 WITH VIT K 10 ML, THIAMINE 100 MG, FOLIC ACID 1 MG in SODIUM CHLORIDE IV SCH ×4 (15:00)
--- NOTE | 2022-10-25 15:04 | P.PN ---
Subjective Progress Note Date: 10/25/22 H&P Date: 10/24/22 Chief Complaint: Weakness of all 4 extremities, abdominal pain This is a 62-year-old female with PMH of HTN, HLD, tobacco and alcohol abuse, recently admitted with alcohol intoxication-serum alcohol level 120, June, presented to the ER with complaints of progressive weakness in all 4 extremities over the last year. Denies back pain. Denies fever or chills. Reports chest pressure 1 year, midsternal with shortness of breath and nausea accompanied by bloating .Denies prior endoscopies. She recently had a full cardiac workup. Regarding her right ovarian cyst, suspected malignancy, reported on CT in June 2022; patient states she followed up with both oncology out of [place] and was referred to [facility] Dr. Ramos in [place], ovarian mass removed and states it was negative for cancer. Patient reports a history of IBS greater than 10 years, chronic constipation. On last discharge patient had been instructed to take MiraLAX daily, patient was noncompliant. Patient has not followed up with PCPs office since June admission. Patient proceeds to inform us that she has significant abdominal bloating, tender and unable to sleep on her stomach. States she is unable to walk. Reports she has decreased her alcohol intake from 4-5 "tall boys" down to 1 daily. Also reports she has a very dry mouth has not been eating except for little spoonfulls. Patient also reports she has had no bowel movement since her prior discharge on July 12. Upon requestioning, patient stated "barely minimal small jaun daily, but that doesn't count". WBC 9.1 hemoglobin 18.5 hematocrit 56.8, MCV 92.9, platelets 273, INR 1.3 sodium 134 potassium 4.0 BUN 13 creatinine 0.4 total bilirubin 1.0 AST 86 ALT 48 alkaline phosphatase 125, ammonia 33 , troponin negative 1 ,TSH 0.865. UA negative, serum alcohol less than 10. 10/25/2022 evaluated by GI, recommendations noted and appreciated. maintained on lactulose, four reported loose stools. Sensorium improved. Ammonia decreased to 24. Abdominal pain improved, less distended. CT of abdomen/pelvis completed reporting cholelithiasis, fatty infiltration of liver, right anterior abdominal wall mass/fluid collection-possibly postsurgical in nature, resolution of large right adnexal mass seen on prior study. General surgery consult in place, recommendations pending .Denies chest pain, palpitations or shortness of breath. Denies lightheadedness, dizziness. Reports ongoing weakness of all 4 extremities-neuro consult in place, recommendations pending. CA 125 24.2. Objective - Vital Signs Vital signs: Vital Signs Temp 97.5 F L 10/25/22 11:25 Pulse 92 10/25/22 11:25 Resp 16 10/25/22 11:25 BP 123/82 10/25/22 11:25 Pulse Ox 94 L 10/25/22 11:25 FiO2 Intake & Output 10/24/22 10/25/22 10/25/22 18:59 06:59 18:59 Intake Total 118 Output Total 1050 Balance -1050 118 Intake: Oral 118 Output: Urine 1050 Other: Voiding Method External Catheter Bedside Commode Bedside Commode Diaper Diaper Incontinent # Voids 1 2 # Bowel Movements 1 1 1 - Exam General: well developed, well nourished, NAD. HEENT: NC/AT, mmm CV: RRR, no murmur Lungs: normal effort, clear throughout Abd: Soft , less distended, less diffuse tenderness, +BS Neuro: alert and oriented x3, no focal deficits, no shakes, no tremors Skin: warm and dry - Labs CBC & Chem 7: 10/25/22 05:30 10/25/22 05:30 Labs: Abnormal Lab Results - Last 24 Hours (Table) 10/25/22 10/25/22 Range/Units 05:30 05:30 Hct 47.0 H (37.2-46.3) % MCHC 31.3 L (32.0-37.0) g/dL BUN 2.9 L (9.0-27.0) mg/dL Creatinine 0.3 L (0.6-1.5) mg/dL BUN/Creatinine Ratio 9.67 L (12.00-20.00) Ratio Calcium 8.4 L (8.7-10.3) mg/dL Assessment and Plan Assessment: Abdominal pain,in a patient with history significant for chronic constipation- noncompliant with MiraLAX, alcohol abuse, reports history of IBS greater than 10 years . 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 Right quadrant mass, fluid collection reported per CT, general surgery following Hyperammonemia History of Right ovarian cyst, 8.3 x 4.7 x 7.2 cm thin-walled incidentally noted on LS CT 07/04, possible malignancy.CA-125 21.5. Reports followed up with oncology and [facility], in [place] , ovarian mass removed and states it was benign. Chronic lacunar infarct Chronic minimal stenosis of lumbar spine, severe L5-S1 spondylosis, moderate to severe cervical spine stenosis C5-C6, no surgical intervention recommended as per orthopedic surgery evaluation , on 10/31. Hypertension Hypothyroidism Ongoing nicotine dependence Fatty liver, small dependent gallstones and or gallbladder sludge reported per CT, Jun 2022 Plan: Continue on current medication regime ,monitoring and symptomatic treatment. Maintain lactulose, banana bag , vitamin supplements. PT/OT. Cleared by GI for discharge. Patient will be discharged in a stable condition with guarded prognosis pending clearance from general surgery and neurology. The impression and plan of care has been dictated as directed. : I performed a history and examination of this patient, discussed the same with the dictator. I agree with the dictator's note ,documented as a scribe. Any additional findings or plans will be noted.
--- NOTE | 2022-10-25 15:28 | P.CNNES ---
History of Present Illness Consult date: 10/25/22 Requesting physician: Jacob Ku Reason for Consult: bilateral uppper and lower exrtemity weakness. History of Present Illness: Patient is a 62-year-old right-handed female came to the hospital 2 days ago on 10/23/2022, at 1:54 PM for progressive weakness. Patient states that her symptoms started about a year ago when she came to the hospital for similar problems, but was not too much significantly affected. She was still able to go to the store, and could walk. Her symptoms started with paresthesias in her h ands and feet, but then the symptoms progressed from feet to the knees and now extends all the way to the hips bilaterally. It also involves her buttocks and back of the thighs. Her legs are getting weaker. She has lot of pain in her feet all the way to the top of the thighs, stabbing shooting pain but no burning. Her legs are also numb all the way to the hips and her skin of the legs feels too tight. She also has symptoms in her hands, as it feels like grating, gravel sensations under her skin. It only involves up to the wrist, but does not involve the upper arms or the forearms on either side. For last 1 year, she feels her abdomen is bloated. Patient says that she went to [place] [facility] underwent EMG of upper and lower limbs and no definitive diagnosis was made. These symptoms have rapidly progressed in the last 1 week. She states that she has lost ability to hold up herself, or walk. The symptoms have particularly got worse in the last 1 week. Her legs are very wobbly when she tries to stand. On Monday, 2 days ago, she woke up and noticed has lost strength in her arms and legs. She stood up, wanted to walk, to couple steps and bending down. It has become from bad to worse in the last 1 week. Patient says that she is always dizzy even when she is laying down. She complains of significant loss of appetite, losing strength, not eating, feels full all the time. She is noticing significant bloating in her stomach. She has chronic dry mouth. Patient complains of not able to feel bowel movements. She only would know that she had bowel movement once she notices something falling in the toilet, or if she see something coming out. She does have sensation for urination, but has urgency and stress incontinence. She feels she cannot empty bladder and takes a while to urinate. Vital signs on arrival blood pressure 127/95, pulse rate 117 and temperature 97.3. Blood test shows normal WBC hemoglobin 18.5, platelets 273. INR 1.3. Sodium 134 potassium 4.0, renal functions normal, AST mildly elevated 86, ALT 48. Ammonia is borderline elevated 33/30, whereas repeat ammonia level is normal 24, troponin negative CA-125 antigen normal, TSH normal UA negative, blood alcohol level negative. Patient's last hemoglobin A1c 5.3 on 10/19/2021. B12 was 808 on 07/10/2022, B6 was borderline 5, BUN 59 which is normal. Folate was also borderline 4.6(4.4-31). Patient had CSF performed 10/22/2021 in which her glucose was 69, proteins 56 which is normal, myelin basic protein <2.0, which is normal, CSF angiotensin converting enzyme <5, which is also normal, CSF VDRL nonreactive, Lyme titer negative from 10/22/2021, West Nile virus negative, CSF viral cultures negative. Patient had an MRI of the brain and cervical spine with and without contrast on 10/20/2021, which revealed some degenerative spondylosis of the cervical spine, without significant spinal stenosis. MRI of the thoracic and lumbar spine 10/21/2021 revealed facet joint arthropathy at T10 and T11 on the left with osteophyte abutting the spinal cord. No evidence of disc herniation or additional significant spinal canal stenosis. No abnormal postcontrast enhancement. I presently reviewed MRIs and agree with the findings. CT head revealed no acute intracranial process. Follow-up MRI can be performed as clinically indicated. 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 Chronic appearing periventricular white matter ischemic type changes. I personally reviewed CT head, agree with the findings. Chest x-ray revealed streaky atelectasis right lung base, EKG shows sinus tachycardia with occasional supraventricular premature complexes. Possible left atrial enlargement. CT abdomen and pelvis showed no change in the mild atelectasis/infiltrate in the bilateral lung bases, right greater than left. Cholelithiasis, fatty infiltration of the liver. Right anterior abdominal wall mass/fluid collection. Resolution of the large right adnexal mass seen in the prior study. Patient apparently had presented to the hospital in October 2021 with 10 day history of paresthesias of the entire body. Patient also had syncopal episode. MRI showed cervical spondylosis mostly at C5-C6 at least moderate degree. Patient had low folate which was started at that time. She subsequently was seen again by neurology team in June 2022, when she was found to have right pelvic/ovarian mass suggestive of neoplasm, possibly causing mass effect and contributing to her lower extremity weakness. Patient has bilateral leg weakness for the past week, was also has evidence of old stroke over the right caudate, old left upper extremity weakness. Patient started smoking at age 15. She started smoking up to < 1 pack per day since her 30s, still smokes. She consumes 4 drinks of Cristobal's hard lemonade (8%) almost daily for last 20 years. Patient had a 11 cm ovarian mass removed in June 2022, which was benign cyst. It was performed at [place]. Patient's home medications include [place], aspirin 81 mg, folic acid 1 mg, amlodipine, levothyroxine 75 g and metoprolol. Review of Systems Constitutional: Reports anorexia, Reports chills, Reports chronic pain, Reports fatigue, Reports poor appetite, Reports weakness, Reports weight gain, Denies fever Eyes: denies blurred vision, denies pain Ears: deny: decreased hearing, ear discharge Ears, nose, mouth and throat: Reports sore throat, Denies headache Cardiovascular: Reports chest pain, Reports shortness of breath Respiratory: Denies cough, Denies excessive sputum Gastrointestinal: Reports abdominal pain, Reports loss of appetite, Denies diarrhea, Denies nausea, Denies vomiting Genitourinary: Reports stress incontinence, Reports urgency, Denies dysuria, Denies hematuria Musculoskeletal: Reports frequent falls, Reports gait dysfunction, Reports low back pain, Reports myalgias, Reports neck pain Integumentary: Denies pruritus, Denies rash Neurological: Reports as per HPI Psychiatric: Reports depression, Denies anxiety Endocrine: Reports fatigue, Reports weight change Hematologic/Lymphatic: Denies easy bleeding, Denies easy bruising Past Medical History Past Medical History: CVA/TIA, GERD/Reflux, Hypertension, Thyroid Disorder Additional Past Medical History / Comment(s): Pt states previous CVA per CT scan when she was in the hospital last with no residual. History of Any Multi-Drug Resistant Organisms: None Reported Past Surgical History: Orthopedic Surgery Additional Past Surgical History / Comment(s): Right knee replacement. Past Anesthesia/Blood Transfusion Reactions: No Reported Reaction Past Psychological History: No Psychological Hx Reported Smoking Status: Current every day smoker Past Alcohol Use History: Daily Past Drug Use History: None Reported - Past Family History Mother Family Medical History: Diabetes Mellitus Father Additional Family Medical History / Comment(s): Heart disease Daughter(s) Family Medical History: Renal Disease Medications and Allergies Home Medications Medication Instructions Recorded Confirmed Type Levothyroxine Sodium [Synthroid] 75 mcg PO DAILY 05/10/21 10/23/22 History Metoprolol Succinate (ER) [Toprol 25 mg PO DAILY 05/10/21 10/23/22 History XL] amLODIPine [Norvasc] 10 mg PO DAILY 05/10/21 10/23/22 History Aspirin EC [Ecotrin Low Dose] 81 mg PO DAILY #30 tab 07/11/22 10/23/22 Rx Folic Acid 1 mg PO DAILY@1200 tab 07/11/22 10/23/22 Rx HYDROcodone/APAP 7.5-325MG [[place] 1 tab PO Q6H PRN 10/23/22 10/23/22 History 7.5-325] Ibuprofen [Motrin] 600 mg PO Q6HR PRN 10/23/22 10/23/22 History Lactulose [Cephulac] 30 gm PO DAILY #1800 ml 10/25/22 Rx Allergies Allergy/AdvReac Type Severity Reaction Status Date / Time Penicillins AdvReac Vomiting Verified 10/23/22 18:41 Physical Examination - Vital Signs Vital Signs: Vital Signs Temp Pulse Resp BP Pulse Ox 10/25/22 07:18 97.6 F 91 16 112/71 92 L 10/25/22 01:43 97.4 F L 100 15 111/70 94 L 10/24/22 20:00 16 10/24/22 18:57 98.0 F 119 H 15 130/90 93 L 10/24/22 11:25 97.7 F 84 16 118/76 96 Intake and Output 10/24/22 10/25/22 10/25/22 22:59 06:59 14:59 Intake Total 118 Balance 118 Intake: Oral 118 Other: Voiding Method Bedside Commode Diaper Incontinent # Voids 1 1 # Bowel Movements 1 Patient is a late middle aged female, in no acute distress. Patient is alert awake oriented to time place and person. Speech and language functions are normal. Patient can name and repeat very well. No aphasia or dysarthria. Attention, concentration and fund of knowledge is adequate. On cranial nerve examination, pupils are equal, round and reacting to light, visual huerta are full on confrontation, with no neglect on double simultaneous stimulation. Extraocular muscles are intact with no nystagmus. Face is symmetric, tongue protrudes to the midline. Palatal elevation and sensation normal, hearing and shoulder shrug normal, facial sensation normal. Facial muscles are strong in the upper and lower part. On muscle strength testing, there is no pronator drift and the strength is (right/left) deltoid 4+5-/4+5-, biceps 4/4+, triceps 4+/4+, back tender fourdrinier 4/4, interossei 4+/4+, hip flexion 3+/3+, knee extension 5-/5-, hip abduction 4+/4+, hip adduction 5/5, ankle dorsiflexion 5/5, inversion 5/5, Peronei 5/5, toe extension 4+/4+. Deep tendon reflexes are completely areflexic. Plantars are possibly up. Sensory to touch is equal, however she has significant loss of sensation from toes all the way up to the groin bilaterally. Also has decreased sensation in the hands up to the wrists bilaterally. Vibration is absent in the lower limbs, decreased in the fingers. Cerebellar function showed ataxia with tremulousness in both upper extremities for [id number] testing. Patient's legs are very weak, not able to perform [id number] testing although appears ataxic. Tone and bulk of muscles normal. Gait deferred.. On general examination, there is no carotid bruit or murmur, S1-S2 audible. Chest is clear on consultation. Abdomen is soft but distended. No organomegaly, bowel sounds present. Peripheral pulses are present. No edema. Patient has very poor hygiene of her toes, with very large toenails. 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 Patient has weakness, distally and proximally, with areflexia as well as decreased sensation in the hands in glove distribution, and in legs from toes all the way up to the groin. Rule out CIDP versus paraneoplastic polyneuropathy versus nutritional deficiencies related to alcoholism. * History of benign ovarian mass removal, in June 2022 * Hypertension * Tobacco use * Alcoholism Plan: * Patient to undergo detailed blood testing as per order set. * We will also check anti-hue, anti-Yo and voltage gated calcium channel antibodies to rule out paraneoplastic syndrome. * Patient may benefit from lumbar puncture to evaluate for CSF proteins rule out CIDP. * Recommend EMG and nerve conduction studies of upper and lower extremities to evaluate for the type and severity of polyneuropathy * Patient strongly recommended about tobacco and alcohol cessation. * PT OT. * Neurology will follow. Thank you for the consult. Time with Patient: Greater than 30
--- NOTE | 2022-10-25 15:58 | P.GSCN ---
History of Present Illness Consult date: 10/25/22 History of present illness: CHIEF COMPLAINT: Weakness HISTORY OF PRESENT ILLNESS: This is a 62-year-old female with a known history of alcoholic is. She presented to the hospital with weakness, dehydration, constipation and abdominal pain. Patient describes the abdominal pain is diffuse. She had a cyst removed from her right ovary about 3 weeks ago [address] a Dr. Ramos out of [facility]. Patient reports that the pathology was benign. Patient reports that she is now having bowel movements. She did have abdominal bloating but that is improving. She denies any nausea or vomiting. She had a computed tomography scan of the abdomen and pelvis did show evidence of gallstones, fatty liver and right anterior abdominal mass/fluid collection. The fluid collection is measuring 9.2 x 36.5 mm. It is in the location of where he trocar site of the surgery for her ovarian cyst was located. Patient denies any fever, chills or sweats. Patient seen and examined with Dr. Vargas PAST MEDICAL HISTORY: See below PAST SURGICAL HISTORY: See below MEDICATIONS: See below ALLERGIES: See below SOCIAL HISTORY: No illicit drug use. REVIEW OF SYSTEMS: CONSTITUTIONAL: Denies fever or chills. HEENT: Denies blurred vision, vision changes, or eye pain. Denies hemoptysis CARDIOVASCULAR: Denies chest pain or pressure. RESPIRATORY: No shortness of breath. GASTROINTESTINAL: See HPI for pertinent findings HEMATOLOGIC: Denies bleeding disorders. GENITOURINARY: Denies any blood in urine or increased urinary frequency. SKIN: Denies pruitis. Denies rash. PHYSICAL EXAM: VITAL SIGNS: Reviewed GENERAL: Well-developed in no acute distress. HEENT: No sclera icterus. Extraocular movements grossly intact. Moist buccal mucosa. Head is atraumatic, normocephalic. No nasal drainage. ABDOMEN: Soft. Diffuse tenderness. Right lower abdominal wall trocar site with area of firmness noted. No drainage. Nondistended. Patient does have a large mole located on the right upper quadrant of the abdomen that is black in color NEUROLOGIC: Alert and oriented. Cranial nerves II through XII grossly intact. LABORATORY DATA: WBC is 7.01 Hgb 14.7 platelets 249 Sodium is 142 potassium 3.7 creatinine 0.3 Total bilirubin 1.0 AST 86 ALT 48 IMAGING: Computed tomography scan no change and mild atelectasis/infiltrate in the bilateral lung bases right greater than left. Cholelithiasis. Fatty infiltration of the liver. Right anterior abdominal wall mass/fluid collection. Resolution of the large right adnexal mass on prior study. ASSESSMENT: 1. Abdominal pain 2. Right anterior abdominal wall hematoma at trocar site is likely the noted fluid collection on the CAT scan 3. Cholelithiasis 4. Mole in right upper quadrant of abdomen 5. Constipation 6. Daily alcohol use PLAN: -HIDA scan ordered for further evaluation of the gallstones and abdominal pain. -No surgical intervention planned on the abdominal wall hematoma -Recommend outpatient removal of mole from abdomen Thank you for this consultation Physician [employer]yst [employer]ator note has been reviewed by physician. Signing provider agrees with the documented findings, assessment, and plan of care. Past Medical History Past Medical History: CVA/TIA, GERD/Reflux, Hypertension, Thyroid Disorder Additional Past Medical History / Comment(s): Pt states previous CVA per CT scan when she was in the hospital last with no residual. History of Any Multi-Drug Resistant Organisms: None Reported Past Surgical History: Orthopedic Surgery Additional Past Surgical History / Comment(s): Right knee replacement. Past Anesthesia/Blood Transfusion Reactions: No Reported Reaction Past Psychological History: No Psychological Hx Reported Smoking Status: Current every day smoker Past Alcohol Use History: Daily Past Drug Use History: None Reported - Past Family History Mother Family Medical History: Diabetes Mellitus Father Additional Family Medical History / Comment(s): Heart disease Daughter(s) Family Medical History: Renal Disease Medications and Allergies Home Medications Medication Instructions Recorded Confirmed Type Levothyroxine Sodium [Synthroid] 75 mcg PO DAILY 05/10/21 10/23/22 History Metoprolol Succinate (ER) [Toprol 25 mg PO DAILY 05/10/21 10/23/22 History XL] amLODIPine [Norvasc] 10 mg PO DAILY 05/10/21 10/23/22 History Aspirin EC [Ecotrin Low Dose] 81 mg PO DAILY #30 tab 07/11/22 10/23/22 Rx Folic Acid 1 mg PO DAILY@1200 tab 07/11/22 10/23/22 Rx HYDROcodone/APAP 7.5-325MG [[place] 1 tab PO Q6H PRN 10/23/22 10/23/22 History 7.5-325] Ibuprofen [Motrin] 600 mg PO Q6HR PRN 10/23/22 10/23/22 History Lactulose [Cephulac] 30 gm PO DAILY #1800 ml 10/25/22 Rx Allergies Allergy/AdvReac Type Severity Reaction Status Date / Time Penicillins AdvReac Vomiting Verified 10/23/22 18:41 Surgical - Exam Vital Signs Temp Pulse Resp Pulse Ox 97.3 F L 117 H 20 96 10/23/22 13:58 10/23/22 13:58 10/23/22 13:58 10/23/22 13:58 Results - Labs 10/25/22 05:30 10/25/22 05:30 Abnormal Lab Results - Last 24 Hours (Table) 10/25/22 Range/Units 05:30 Hct 47.0 H (37.2-46.3) % MCHC 31.3 L (32.0-37.0) g/dL
[2022-10-25 16:32] LABS: Protein, Total 5.8 g/dL (6.2-8.2)
[2022-10-26] MEDS: 1: MVI, ADULT NO.4 WITH VIT K 10 ML, THIAMINE 100 MG, FOLIC ACID 1 MG in SODIUM CHLORIDE IV SCH ×8 (00:47→11:15)
--- NOTE | 2022-10-26 09:04 | NM ---
EXAMINATION TYPE: NM hepatobiliary wo EF DATE OF EXAM: 10/26/2022 8:29 AM COMPARISON: 10/24/2022 CLINICAL INDICATION:Female, 62 years old with history of RUQ pain, gallstones; TECHNIQUE: The patient was given 4.3 mCi of Technetium 99m-Mebrofenin as a radiotracer and multiple scintigraphic images were obtained of the abdomen. FINDINGS: Normal uptake of radiotracer was identified within the liver with excretion into the hepatic and comm on biliary ducts within 60 minutes. There was normal progressive washout of the liver over the course of the study. Radiotracer uptake within the gallbladder 46 as well as small bowel activity was ident ified at 24 minutes. IMPRESSION: Normal hepatobiliary scan.
[2022-10-26] MEDS: ASPIRIN 81 MG PO SCH (09:48)
[2022-10-26] MEDS: LACTULOSE 20 GM/30 ML CUP PO SCH (09:48)
[2022-10-26] MEDS: LEVOTHYROXINE 75 MCG TAB PO SCH (09:48)
[2022-10-26] MEDS: amLODIPine 10 MG TAB PO SCH (09:48)
[2022-10-26] MEDS: PANTOPRAZOLE 40 MG/10 ML VIAL IV SCH (09:49)
[2022-10-26] MEDS: METOPROLOL SUCCINATE (ER) 25 MG TAB.ER.24H PO SCH (09:49)
[2022-10-26] MEDS: PYRIDOXINE 50 MG TAB PO SCH (09:49)
[2022-10-26] MEDS: HYDROcodone/APAP 5-325MG 1 EACH TAB PO PRN ×2 (10:05→17:32)
[2022-10-26 11:36] LABS: African American GFR (CKD) 129.4 (60.0-200.0); Anion Gap 13.2 mmol/L (10.00-18.00); Blood Urea Nitrogen 2.4 mg/dL (9.0-27.0); Calcium 8.4 mg/dL (8.7-10.3); Carbon Dioxide 21.8 mmol/L (20.0-27.5); Non-African American GFR(CKD) 111.6 (60.0-200.0); Potassium 3.4 mmol/L (3.5-5.5)
--- NOTE | 2022-10-26 11:56 | P.PN ---
Subjective Progress Note Date: 10/26/22 CHIEF COMPLAINT: Abdominal pain HISTORY OF PRESENT ILLNESS: Patient reports that she is feeling better. She's tolerating diet. She has had bowel movements. Denies any nausea or vomiting. HIDA scan was normal. Patient seen and examined with Dr. duval PHYSICAL EXAM: VITAL SIGNS: Reviewed. GENERAL: Well-developed in no acute distress. HEENT: No sclera icterus. Extraocular movements grossly intact. Moist buccal mucosa. Head is atraumatic, normocephalic. ABDOMEN: Soft. Nondistended. NEUROLOGIC: Alert and oriented. Cranial nerves II through XII grossly intact. ASSESSMENT: 1. Abdominal pain 2. Right anterior abdominal wall hematoma at trocar site is likely the noted fluid collection on the CAT scan 3. Cholelithiasis 4. Mole in right upper quadrant of abdomen 5. Constipation 6. Daily alcohol use PLAN: -Patient can be discharged from surgical standpoint when medically cleared -Recommend that patient follows up in [address] Duval -No surgical intervention planned on the abdominal wall hematoma -Recommend outpatient removal of mole from abdomen -Further gallbladder workup outpatient Physician Toby Maker note has been reviewed by physician. Signing provider agrees with the documented findings, assessment, and plan of care. Objective - Vital Signs Vital signs: Vital Signs Temp 97.3 F L 10/26/22 08:31 Pulse 104 H 10/26/22 08:31 Resp 18 10/26/22 08:31 BP 118/79 10/26/22 08:31 Pulse Ox 95 10/26/22 08:31 FiO2 Intake & Output 10/25/22 10/26/22 10/26/22 18:59 06:59 18:59 Intake Total 1000 1311.2 Balance 1000 1311.2 Intake: Intake, IV Titration 1000 1011.2 Amount Mvi, Adult No.4 with Vit 1011.2 K 10 ml Thiamine 100 mg Folic Acid 1 mg In Sodium Chloride 0.9% 1,000 ml @ 100 mls/hr IV .BY DURATION JB Rx#: [id number] Sodium Chloride 0.9% 1, 1000 000 ml @ 100 mls/hr IV . BY DURATION JB Rx#: [id number] Oral 300 Other: Voiding Method Bedside Commode Bedside Commode Diaper Diaper # Voids 2 1 1 # Bowel Movements 1 - Labs CBC & Chem 7: 10/25/22 05:30 10/26/22 06:04 Labs: Abnormal Lab Results - Last 24 Hours (Table) 10/25/22 10/25/22 10/25/22 Range/Units 05: 05: 12:16 Hct 47.0 H (37.2-46.3) % MCHC 31.3 L (32.0-37.0) g/dL BUN 2.9 L (9.0-27.0) mg/dL Creatinine 0.3 L (0.6-1.5) mg/dL BUN/Creatinine Ratio 9.67 L (12.00-20.00) Ratio Calcium 8.4 L (8.7-10.3) mg/dL Total Protein (PEP) 5.8 L (6.2-8.2) g/dL
[2022-10-26] MEDS: FOLIC ACID 1 MG TAB PO SCH (12:50)
[2022-10-26 14:34] LABS: Albumin 3.09 g/dL (3.80-4.90); Gamma Globulin 0.82 g/dL (0.70-1.50)
--- NOTE | 2022-10-26 14:53 | P.PN ---
Subjective Progress Note Date: 10/26/22 H&P Date: 10/24/22 Chief Complaint: Weakness of all 4 extremities, abdominal pain This is a 62-year-old female with PMH of HTN, HLD, tobacco and alcohol abuse, recently admitted with alcohol intoxication-serum alcohol level 120, June, presented to the ER with complaints of progressive weakness in all 4 extremities over the last year. Denies back pain. Denies fever or chills. Reports chest pressure 1 year, midsternal with shortness of breath and nausea accompanied by bloating .Denies prior endoscopies. She recently had a full cardiac workup. Regarding her right ovarian cyst, suspected malignancy, reported on CT in June 2022; patient states she followed up with both oncology out of [place] and was referred to [facility] Dr. Ramos in [place], ovarian mass removed and states it was negative for cancer. Patient reports a history of IBS greater than 10 years, chronic constipation. On last discharge patient had been instructed to take MiraLAX daily, patient was noncompliant. Patient has not followed up with PCPs office since June admission. Patient proceeds to inform us that she has significant abdominal bloating, tender and unable to sleep on her stomach. States she is unable to walk. Reports she has decreased her alcohol intake from 4-5 "tall boys" down to 1 daily. Also reports she has a very dry mouth has not been eating except for little spoonfulls. Patient also reports she has had no bowel movement since her prior discharge on July 12. Upon requestioning, patient stated "barely minimal small jaun daily, but that doesn't count". WBC 9.1 hemoglobin 18.5 hematocrit 56.8, MCV 92.9, platelets 273, INR 1.3 sodium 134 potassium 4.0 BUN 13 creatinine 0.4 total bilirubin 1.0 AST 86 ALT 48 alkaline phosphatase 125, ammonia 33 , troponin negative 1 ,TSH 0.865. UA negative, serum alcohol less than 10. 10/25/2022 evaluated by GI, recommendations noted and appreciated. maintained on lactulose, four reported loose stools. Sensorium improved. Ammonia decreased to 24. Abdominal pain improved, less distended. CT of abdomen/pelvis completed reporting cholelithiasis, fatty infiltration of liver, right anterior abdominal wall mass/fluid collection-possibly postsurgical in nature, resolution of large right adnexal mass seen on prior study. General surgery consult in place, recommendations pending .Denies chest pain, palpitations or shortness of breath. Denies lightheadedness, dizziness. Reports ongoing weakness of all 4 extremities-neuro consult in place, recommendations pending. CA 125 24.2. 10/26/2022 maintained on IV fluids, lactulose. Multiple bowel movements yesterday, lactulose frequency decreased. Loose bowel movement 1 this morning. Positive diet intake with no nausea, vomiting. Reports continuous bloating- soft. States Bilateral lower extremity weakness persists with pain in toes of bilateral feet as well as bilateral knees : Positive sensation light touch of lower extremities present. Evaluated by general surgery, hyda scan pending. Evaluated by neurology, neuro workup in progress including ruling out CIDP, LP ordered. Objective - Vital Signs Vital signs: Vital Signs Temp 97.4 F L 10/26/22 13:09 Pulse 68 10/26/22 13:09 Resp 18 10/26/22 13:09 BP 119/80 10/26/22 13:09 Pulse Ox 93 L 10/26/22 13:09 FiO2 Intake & Output 10/25/22 10/26/22 10/26/22 18:59 06:59 18:59 Intake Total 1000 1311.2 Balance 1000 1311.2 Intake: Intake, IV Titration 1000 1011.2 Amount Mvi, Adult No.4 with Vit 1011.2 K 10 ml Thiamine 100 mg Folic Acid 1 mg In Sodium Chloride 0.9% 1,000 ml @ 100 mls/hr IV .BY DURATION JB Rx#: [id number] Sodium Chloride 0.9% 1, 1000 000 ml @ 100 mls/hr IV . BY DURATION JB Rx#: [id number] Oral 300 Other: Voiding Method Bedside Commode Bedside Commode Bedside Commode Diaper Diaper Diaper # Voids 2 1 1 # Bowel Movements 1 1 - Exam General: well developed, well nourished, NAD. HEENT: NC/AT, mmm CV: RRR, no murmur Lungs: normal effort, clear throughout Abd: Soft , less distended, less bloated, no tenderness, +BS Neuro: alert and oriented x3, no focal deficits, no shakes, no tremors Skin: warm and dry - Labs CBC & Chem 7: 10/25/22 05:30 10/26/22 06:04 Labs: Abnormal Lab Results - Last 24 Hours (Table) 10/25/22 10/26/22 Range/Units 12:16 06:04 Potassium 3.4 L (3.5-5.5) mmol/L BUN 2.4 L (9.0-27.0) mg/dL Creatinine 0.4 L (0.6-1.5) mg/dL BUN/Creatinine Ratio 6.00 L (12.00-20.00) Ratio Calcium 8.4 L (8.7-10.3) mg/dL Total Protein (PEP) 5.8 L (6.2-8.2) g/dL Assessment and Plan Assessment: Abdominal pain,in a patient with history significant for chronic constipation- noncompliant with MiraLAX, alcohol abuse, reports history of IBS greater than 10 years . 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 Ruling out CIDP versus paraneoplastic p olyneuropathy as per neurology Right quadrant mass, fluid collection reported per CT, general surgery following Hyperammonemia History of Right ovarian cyst, 8.3 x 4.7 x 7.2 cm thin-walled incidentally noted on LS CT 07/04, possible malignancy.CA-125 21.5. Reports followed up with oncology and [facility], in [place] , ovarian mass removed and states it was benign. Chronic lacunar infarct Chronic minimal stenosis of lumbar spine, severe L5-S1 spondylosis, moderate to severe cervical spine stenosis C5-C6, no surgical intervention recommended as per orthopedic surgery evaluation , on 10/31. Hypertension Hypothyroidism Ongoing nicotine dependence Fatty liver, small dependent gallstones and or gallbladder sludge reported per CT, Jun 2022 Plan: Continue on current medication regime ,monitoring and symptomatic treatment. Maintain lactulose, banana bag , vitamin supplements. PT/OT. Neurology workup in progress. Discharge planning in progress tentatively for tomorrow pending final DC recommendations and clearance per neurology. The impression and plan of care has been dictated as directed. : I performed a history and examination of this patient, discussed the same with the dictator. I agree with the dictator's note ,documented as a scribe. Any additional findings or plans will be noted.
[2022-10-27] MEDS: 1: MVI, ADULT NO.4 WITH VIT K 10 ML, THIAMINE 100 MG, FOLIC ACID 1 MG in SODIUM CHLORIDE IV SCH ×20 (00:01→18:39)
[2022-10-27] MEDS: HYDROcodone/APAP 5-325MG 1 EACH TAB PO PRN ×3 (00:19→18:44)
[2022-10-27] MEDS: LEVOTHYROXINE 75 MCG TAB PO SCH (05:58)
--- NOTE | 2022-10-27 07:10 | P.PN ---
Subjective Progress Note Date: 10/26/22 Patient was seen for a follow-up. Patient is undergoing PT OT evaluation at this time. PT OT feels patient is better, as well as patient herself. No new concerns. Objective - Vital Signs Vital signs: Vital Signs Temp 97.3 F L 10/26/22 08:31 Pulse 104 H 10/26/22 08:31 Resp 18 10/26/22 08:31 BP 118/79 10/26/22 08:31 Pulse Ox 95 10/26/22 08:31 FiO2 Intake & Output 10/25/22 10/26/22 10/26/22 18:59 06:59 18:59 Intake Total 1000 1311.2 Balance 1000 1311.2 Intake: Intake, IV Titration 1000 1011.2 Amount Mvi, Adult No.4 with Vit 1011.2 K 10 ml Thiamine 100 mg Folic Acid 1 mg In Sodium Chloride 0.9% 1,000 ml @ 100 mls/hr IV .BY DURATION JB Rx#: [id number] Sodium Chloride 0.9% 1, 1000 000 ml @ 100 mls/hr IV . BY DURATION JB Rx#: [id number] Oral 300 Other: Voiding Method Bedside Commode Bedside Commode Diaper Diaper # Voids 2 1 1 # Bowel Movements 1 - Exam Patient's mental status, speech and language functions are normal. Cranial nerves are all normal. Facial strength is normal bilaterally. Tongue protrudes the midline. Visual huerta full. Vibrations sense absent at the toes, ankles and knees. Decreased vibrations in the fingers also. Examination unchanged. 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 Patient has weakness, distally and proximally, with areflexia as well as decreased sensation in the hands in glove dist ribution, and in legs from toes all the way up to the groin. Rule out CIDP versus paraneoplastic polyneuropathy versus nutritional deficiencies related to alcoholism. * History of benign ovarian mass removal, in June 2022 * Hypertension * Tobacco use * Alcoholism Plan: * Patient's blood workup so far unremarkable. Quantitative immunoglobulins normal, serum protein electrophoresis, immunofixation electrophoresis showed no monoclonal paraprotein. Sjogren's antibodies, DANYA negative. TSH normal, B12 838, B6 is borderline 7. Patient on replacement with B6 50 mg daily. Hemoglobin A1c 5.3 on 10/19/2021. * Await anti-hue, anti-Yo and voltage gated calcium channel antibodies to rule out paraneoplastic syndrome. * We will perform lumbar puncture to evaluate for CSF proteins rule out CIDP. * Recommend EMG and nerve conduction studies of upper and lower extremities to evaluate for the type and severity of polyneuropathy * Patient strongly recommended about tobacco and alcohol cessation. * PT OT also following. * Also updated primary team about above plan.
[2022-10-27] MEDS ORDERED: Potassium Replacement Protocol 1 EACH MISC MISCELLANE PRN ×2 (08:34→21:37)
[2022-10-27] MEDS: METOPROLOL SUCCINATE (ER) 25 MG TAB.ER.24H PO SCH (09:47)
[2022-10-27] MEDS: ASPIRIN 81 MG PO SCH (09:47)
[2022-10-27] MEDS: FOLIC ACID 1 MG TAB PO SCH (09:47)
[2022-10-27] MEDS: amLODIPine 10 MG TAB PO SCH (09:47)
[2022-10-27] MEDS: LACTULOSE 20 GM/30 ML CUP PO SCH (09:47)
[2022-10-27] MEDS: PANTOPRAZOLE 40 MG/10 ML VIAL IV SCH (09:48)
[2022-10-27] MEDS: PYRIDOXINE 50 MG TAB PO SCH (09:49)
[2022-10-27 09:55] LABS: African American GFR (CKD) >90 (>60 ml/min/1.73 sqM); Anion Gap 8 mmol/L; Blood Urea Nitrogen <2 mg/dL (7-17); Calcium 8.2 mg/dL (8.4-10.2); Carbon Dioxide 24 mmol/L (22-30); Chloride 107 mmol/L (98-107); Glucose 94 mg/dL (74-99); Non-African American GFR(CKD) >90 (>60 ml/min/1.73 sqM); Potassium 3.1 mmol/L (3.5-5.1); Sodium 139 mmol/L (137-145)
--- NOTE | 2022-10-27 10:45 | P.PN ---
Subjective Progress Note Date: 10/27/22 Principal diagnosis: Constipation This pleasant 62-year-old female with a medical history including hypertension, thyroid disorder Osman, TIA, alcohol abuse/dependency, with ongoing complaints of constipation, abdominal pain, chest pressure and numbness and tingling of bilateral upper and lower extremities for the last 1 year duration. Patient has been seen and admitted to the hospital in June for same complaints. At that time she had a neurology workup and followed up with neurology at Dr. Guevara's office for EMG and was told that she had some nerve compression as well as carpal tunnel syndrome. Patient states that she has been feeling weak and has passed out and falling. She has a history of the daily alcohol use however states that she has cut back and now is not drinking daily. Admits to drinking Cristobal's hard lemonade. States she's had issues with constipation and was diagnosed with IBS over 10 years ago. First reported she had no bowel movement since June however states that she does actually have bowel movements but this small round hard jaun come out. She does not follow with any bloody for her IBS. No previous colonoscopy and states she believes she had an EGD done at age 24 to look for ulcers. Patient denies any difficulty with swallowing states that she has constant chest pressure every day for the last 1 year duration. She denies any nausea or vomiting. Denies any blood in her stool. States she has no previous history of liver disease despite having elevated ammonia level. CT abdomen and pelvis with contrast ordered. Patient currently drinking her contrast. 10/25/2022: Patient seen and examined today as a follow-up. Patient seems more appropriate with conversation. She was started on lactulose yesterday and he had at least 4 bowel movements. Ammonia level down to 24 from 33. Abdominal pain improving. She had a CT of the abdomen and pelvis yesterday that did show fatty infiltration of liver, cholelithiasis, and right abdominal mass/fluid collection. She denies any nausea or vomiting, she's been afebrile. No blood in her stool reported. 10/26/2022: Patient seen and examined as a follow-up. She went down for HIDA scan this morning ordered by general surgery. She states abdominal pain improved. No nausea or vomiting. Last bowel movement yesterday evening. Repeat ammonia level 26. 10/27/2022: Patient seen and examined is a follow-up for constipation and abdominal pain. Constipation has resolved. Patient continues on lactulose daily. Having daily bowel movements 1-2. Yesterday he underwent HIDA scan ordered by general surgery with normal findings. Patient states she has a little bit of abdominal bloating today. No nausea or vomiting. She continues with workup from neurology for upper and lower extremity weakness. Objective - Vital Signs Vital signs: Vital Signs Temp 98.0 F 10/27/22 07:38 Pulse 79 10/27/22 07:38 Resp 18 10/27/22 07:38 BP 121/70 10/27/22 07:38 Pulse Ox 94 L 10/27/22 07:38 FiO2 Intake & Output 10/26/22 10/27/22 10/27/22 18:59 06:59 18:59 Intake Total 1000 1511.2 Balance 1000 1511.2 Intake: Intake, IV Titration 1000 1011.2 Amount Mvi, Adult No.4 with Vit 1011.2 K 10 ml Thiamine 100 mg Folic Acid 1 mg In Sodium Chloride 0.9% 1,000 ml @ 100 mls/hr IV .BY DURATION JB Rx#: [id number] Sodium Chloride 0.9% 1, 1000 000 ml @ 100 mls/hr IV . BY DURATION JB Rx#: [id number] Oral 500 Other: Voiding Method Bedside Commode Bedside Commode Diaper Diaper # Voids 1 1 # Bowel Movements 1 1 - Exam General appearance: The patient is alert, oriented, appears in no acute distress. HET: Head is normocephalic and atraumatic. Conjunctiva pink. Sclera anicteric. Neck: Supple without lymphadenopathy. Abdomen: Soft, nontender, nondistended with bowel sounds. No guarding or rigidity. Extremities: Normal skin color and turgor. No pedal edema Skin: No rashes, no jaundice Neurological: No focal deficits. Alert and oriented. - Labs CBC & Chem 7: 10/25/22 05:30 10/27/22 08:55 Labs: Abnormal Lab Results - Last 24 Hours (Table) 10/25/22 10/26/22 10/27/22 Range/Units 12:16 06:04 08:55 Potassium 3.4 L 3.1 L (3.5-5.5) mmol/L BUN 2.4 L <2 L (9.0-27.0) mg/dL Creatinine 0.4 L 0.24 L (0.6-1.5) mg/dL BUN/Creatinine Ratio 6.00 L (12.00-20.00) Ratio Calcium 8.4 L 8.2 L (8.7-10.3) mg/dL Albumin (PEP) 3.09 L (3.80-4.90) g/dL [id number] 0.42 H (0.10-0.40) g/dL Assessment and Plan (1) Abdominal pain Narrative/Plan: A 62-year-old female with long-standing history of alcohol abuse who was a daily drinker who now states she's drinking maybe one a day prefers Cristobal's hard lemonade presented to the emergency department with ongoing complaints of upper and lower extremity numbness and tingling and weakness. States she's had episodes where she is passing out and falling. States she has had problems with constipation over the last 1 year duration. She has not had any follow-up in the outpatient setting, she actually has not had much follow-up in outpatient setting with any recommended to PCP or consultants due to insurance issues according to the patient. She states that she was diagnosed with IBS greater than 10 years ago. States she will have episodes where she will have diarrhea multiple times in one day but generally she has constipation. Denies any previous colonoscopy. No rectal bleeding. Bowel movements are usually hard small and round. She was recently hospitalized in June with same complaints and she had a CT of the abdomen and pelvis that showed no acute findings within the colon. She did have a large ovarian mass that she was referred to gynecology oncologist and had ovarian mass removal which she states was benign. Currently awaiting CT abdomen and pelvis. No nausea vomiting. Patient with elevated LFTs, elevated ammonia likely related to some underlying liver disease from CALL abuse. Will start patient on lactulose 30 g 3 times a day for both hyperammonia anemia as well as constipation. Can adjust as needed. Further recommendations forthcoming based on CT abdomen and pelvis. Discussed importance of outpatient follow-up with patient. Will need to follow-up with GI for IBS and schedule outpatient colonoscopy. Abdominal pain and bloating improved. Patient had 4 more bowel movements yesterday and through the night. Likely related to constipation however need to consider findings on abdominal CAT scan showing right quadrant mass/fluid collection. Current Visit: Yes Status: Acute Code(s): R10.9 - UNSPECIFIED ABDOMINAL PAIN SNOMED Code(s): 86350443 (2) Constipation Narrative/Plan: Improved with lactulose. Current Visit: Yes Status: Acute Code(s): K59.00 - CONSTIPATION, UNSPECIFIED SNOMED Code(s): 60279702 (3) Alcohol abuse Current Visit: Yes Status: Acute Code(s): F10.10 - ALCOHOL ABUSE, UNCOMPLICATED SNOMED Code(s): 73387193 (4) Generalized weakness Current Visit: Yes Status: Acute Code(s): R53.1 - WEAKNESS SNOMED Code(s): 12175827 (5) Hyperammonemia Narrative/Plan: Improved with lactulose. Repeat ammonia 24 down from 33. We'll decrease lactulose to 30 g daily. Current Visit: Yes Status: Acute Code(s): E72.20 - DISORDER OF UREA CYCLE METABOLISM, UNSPECIFIED SNOMED Code(s): 1010092 (6) Alcoholic liver disease Narrative/Plan: Patient with long history of alcohol abuse/dependence. CAT scan abdomen and pelvis with findings of fatty infiltration of liver, hepatomegaly. Discussed with patient importance of alcohol abstinence to help reduce further injury to the liver. Patient verbalized understanding. Recommend outpatient follow-up with gastroenterology. Current Visit: Yes Status: Acute Code(s): K70.9 - ALCOHOLIC LIVER DISEASE, UNSPECIFIED SNOMED Code(s): 15564571 Plan: 1. Continue symptomatic and supportive care 2. Diet as tolerated 3. Decrease lactulose to 30 g daily 4. Discussed importance of alcohol abstinence with patient 5. CT abdomen and pelvis reviewed 6. Recommend outpatient follow-up for IBS and outpatient colonoscopy as well at liver surveillance. Colonoscopy set up for 11/15/2022, this was discussed with the patient. Thank you for this consultation, we will sign off at this time. Dr. Freda Horne I agree with the dictator's note, documented as a scribe by Patti Purcell.
--- NOTE | 2022-10-27 11:06 | P.PCN ---
Date of Procedure: 10/27/22 Procedure(s) Performed: Preoperative diagnosis: Progressive symmetric sensorimotor polyneuropathy Post operative diagnoses: Progressive symmetric sensorimotor polyneuropathy Procedure= lumbar puncture Anesthesia=local infiltration with lidocaine 1% 3 mL. Condition: stable Complication: none. Description of the procedure procedure risk and benefits discussed with the patient and family, consent signed. Patient and the procedure area placed in sitting position , back prepped with chlorhexidine 3 times been local infiltration of the skin and subcutaneous tissue with lidocaine 1% 2 mL for skin and subcu interstitial frustrations at L4 5 levels then 22-gauge Quincke-type needle advanced slowly at L4- 5 interlaminar space there was positive cerebrospinal fluid which was clear, no heme, no paresthesia ,total of 8 ML of clear cerebrospinal fluid collected in 4 different tubes 2 mL in each, then the needle removed and a Band-Aid applied and patient tolerated the procedure well without any complications.
[2022-10-27 13:21] LABS: Glucose,CSF 68 mg/dL (40-70); Total Protein,CSF 51 mg/dL (12-60)
--- NOTE | 2022-10-27 14:47 | P.PN ---
Subjective Progress Note Date: 10/27/22 CHIEF COMPLAINT: Abdominal pain HISTORY OF PRESENT ILLNESS: Patient complains of hurting all over. Denies any significant abdominal pain. Denies any nausea vomiting. She is having bowel movements. She is undergoing a neurological workup due to her weakness. She is tolerating diet. HIDA scan was normal. Patient seen and examined with Dr. duval PHYSICAL EXAM: VITAL SIGNS: Reviewed. GENERAL: Well-developed in no acute distress. HEENT: No sclera icterus. Extraocular movements grossly intact. Moist buccal mucosa. Head is atraumatic, normocephalic. ABDOMEN: Soft. Nondistended. NEUROLOGIC: Alert and oriented. Cranial nerves II through XII grossly intact. ASSESSMENT: 1. Abdominal pain 2. Right anterior abdominal wall hematoma at trocar site is likely the noted fluid collection on the CAT scan 3. Cholelithiasis 4. Mole in right upper quadrant of abdomen 5. Constipation 6. Daily alcohol use PLAN: -Patient can be discharged from surgical standpoint when medically cleared -Recommend that patient follows up in [address] 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 Signing provider agrees with the documented findings, assessment, and plan of care. Objective - Vital Signs Vital signs: Vital Signs Temp 98.1 F 10/27/22 13:23 Pulse 77 10/27/22 13:23 Resp 18 10/27/22 13:23 BP 117/76 10/27/22 13:23 Pulse Ox 94 L 10/27/22 13:23 FiO2 Intake & Output 10/26/22 10/27/22 10/27/22 18:59 06:59 18:59 Intake Total 1000 1511.2 Balance 1000 1511.2 Intake: Intake, IV Titration 1000 1011.2 Amount Mvi, Adult No.4 with Vit 1011.2 K 10 ml Thiamine 100 mg Folic Acid 1 mg In Sodium Chloride 0.9% 1,000 ml @ 100 mls/hr IV .BY DURATION JB Rx#: [id number] Sodium Chloride 0.9% 1, 1000 000 ml @ 100 mls/hr IV . BY DURATION JB Rx#: [id number] Oral 500 Other: Voiding Method Bedside Commode Bedside Commode Bedside Commode Diaper Diaper Diaper # Voids 1 1 # Bowel Movements 1 1 - Labs CBC & Chem 7: 10/25/22 05:30 10/27/22 08:55 Labs: Abnormal Lab Results - Last 24 Hours (Table) 10/27/22 Range/Units 08:55 Potassium 3.1 L (3.5-5.1) mmol/L BUN <2 L (7-17) mg/dL Creatinine 0.24 L (0.52-1.04) mg/dL Calcium 8.2 L (8.4-10.2) mg/dL
--- NOTE | 2022-10-27 14:48 | P.PN ---
Subjective Progress Note Date: 10/27/22 H&P Date: 10/24/22 Chief Complaint: Weakness of all 4 extremities, abdominal pain This is a 62-year-old female with PMH of HTN, HLD, tobacco and alcohol abuse, recently admitted with alcohol intoxication-serum alcohol level 120, June, presented to the ER with complaints of progressive weakness in all 4 extremities over the last year. Denies back pain. Denies fever or chills. Reports chest pressure 1 year, midsternal with shortness of breath and nausea accompanied by bloating .Denies prior endoscopies. She recently had a full cardiac workup. Regarding her right ovarian cyst, suspected malignancy, reported on CT in June 2022; patient states she followed up with both oncology out of [place] and was referred to [facility] Dr. Ramos in [place], ovarian mass removed and states it was negative for cancer. Patient reports a history of IBS greater than 10 years, chronic constipation. On last discharge patient had been instructed to take MiraLAX daily, patient was noncompliant. Patient has not followed up with PCPs office since June admission. Patient proceeds to inform us that she has significant abdominal bloating, tender and unable to sleep on her stomach. States she is unable to walk. Reports she has decreased her alcohol intake from 4-5 "tall boys" down to 1 daily. Also reports she has a very dry mouth has not been eating except for little spoonfulls. Patient also reports she has had no bowel movement since her prior discharge on July 12. Upon requestioning, patient stated "barely minimal small jaun daily, but that doesn't count". WBC 9.1 hemoglobin 18.5 hematocrit 56.8, MCV 92.9, platelets 273, INR 1.3 sodium 134 potassium 4.0 BUN 13 creatinine 0.4 total bilirubin 1.0 AST 86 ALT 48 alkaline phosphatase 125, ammonia 33 , troponin negative 1 ,TSH 0.865. UA negative, serum alcohol less than 10. 10/25/2022 evaluated by GI, recommendations noted and appreciated. maintained on lactulose, four reported loose stools. Sensorium improved. Ammonia decreased to 24. Abdominal pain improved, less distended. CT of abdomen/pelvis completed reporting cholelithiasis, fatty infiltration of liver, right anterior abdominal wall mass/fluid collection-possibly postsurgical in nature, resolution of large right adnexal mass seen on prior study. General surgery consult in place, recommendations pending .Denies chest pain, palpitations or shortness of breath. Denies lightheadedness, dizziness. Reports ongoing weakness of all 4 extremities-neuro consult in place, recommendations pending. CA 125 24.2. 10/26/2022 maintained on IV fluids, lactulose. Multiple bowel movements yesterday, lactulose frequency decreased. Loose bowel movement 1 this morning. Positive diet intake with no nausea, vomiting. Reports continuous bloating- soft. States Bilateral lower extremity weakness persists with pain in toes of bilateral feet as well as bilateral knees : Positive sensation light touch of lower extremities present. Evaluated by general surgery, hyda scan pending. Evaluated by neurology, neuro workup in progress including ruling out CIDP, LP ordered. 10/27/2022 neuro workup in progress, LP pending. Currently sitting up at bedside commode. Continues on lactulose,averaging 1-2 BMs/24hrs. denies abdominal pain, complains of mild bloating. Reports lower extremity weakness, n umbness sensation persist and feet remain painful. Ambulated about 4 feet in room with physical therapy's assistance in maintaining balance. HIDA scan reported normal. Objective - Vital Signs Vital signs: Vital Signs Temp 98.1 F 10/27/22 13:23 Pulse 77 10/27/22 13:23 Resp 18 10/27/22 13:23 BP 117/76 10/27/22 13:23 Pulse Ox 94 L 10/27/22 13:23 FiO2 Intake & Output 10/26/22 10/27/22 10/27/22 18:59 06:59 18:59 Intake Total 1000 1511.2 Balance 1000 1511.2 Intake: Intake, IV Titration 1000 1011.2 Amount Mvi, Adult No.4 with Vit 1011.2 K 10 ml Thiamine 100 mg Folic Acid 1 mg In Sodium Chloride 0.9% 1,000 ml @ 100 mls/hr IV .BY DURATION [facility] Rx#: [id number] Sodium Chloride 0.9% 1, 1000 000 ml @ 100 mls/hr IV . BY DURATION [facility] Rx#: [id number] Oral 500 Other: Voiding Method Bedside Commode Bedside Commode Bedside Commode Diaper Diaper Diaper # Voids 1 1 # Bowel Movements 1 1 - Exam General: Sitting up on bedside commode, NAD. HEENT: NC/AT, mmm CV: RRR, no murmur Lungs: normal effort, clear throughout Abd: Soft , less distended, less bloated, no tenderness, +BS Neuro: alert and oriented x3, no focal deficits, no shakes, no tremors Skin: warm and dry - Labs CBC & Chem 7: 10/25/22 05:30 10/27/22 08:55 Labs: Abnormal Lab Results - Last 24 Hours (Table) 10/25/22 10/27/22 Range/Units 12:16 08:55 Potassium 3.1 L (3.5-5.1) mmol/L BUN <2 L (7-17) mg/dL Creatinine 0.24 L (0.52-1.04) mg/dL Calcium 8.2 L (8.4-10.2) mg/dL Albumin (PEP) 3.09 L (3.80-4.90) g/dL [id number] 0.42 H (0.10-0.40) g/dL Assessment and Plan Assessment: Abdominal pain,in a patient with history significant for chronic constipation- noncompliant with MiraLAX, alcohol abuse, reports history of IBS greater than 10 years . 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 Ruling out CIDP versus paraneoplastic polyneuropathy as per neurology Right quadrant mass, fluid collection reported per CT, general surgery following Hyperammonemia History of Right ovarian cyst, 8.3 x 4.7 x 7.2 cm thin-walled incidentally noted on LS CT 07/04, possible malignancy.CA-125 21.5. Reports followed up with oncology and [facility], in [facility] , ovarian mass removed and states it was benign. Chronic lacunar infarct Chronic minimal stenosis of lumbar spine, severe L5-S1 spondylosis, moderate to severe cervical spine stenosis C5-C6, no surgical intervention recommended as per orthopedic surgery evaluation , on 10/31. Hypertension Hypothyroidism Ongoing nicotine dependence Fatty liver, small dependent gallstones and or gallbladder sludge reported per CT, Jun 2022 Plan: Continue on current medication regime ,monitoring and symptomatic treatment. Neurology workup in progress, LP pending. Discharge planning in progress tentatively for tomorrow pending final DC recommendations and clearance per neurology. The impression and plan of care has been dictated as directed. : I performed a history and examination of this patient, discussed the same with the dictator. I agree with the dictator's note ,documented as a scribe. Any additional findings or plans will be noted.
[2022-10-27 15:33] LABS: Appearance,CSF Clear; CSF Tube Number 4; Nucleated Cells, CSF 0 u/L (0-5); Red Blood Cell,CSF 1 u/L (0-10)
[2022-10-27] MEDS: POTASSIUM CHLORIDE ER 20 MEQ TAB.ER PO SCH ×3 (16:10→22:18)
--- NOTE | 2022-10-27 22:29 | P.PN ---
Subjective Progress Note Date: 10/27/22 Patient was seen for a follow-up. Patient is currently laying comfortably in the bed. Denies any changes in her condition. Continues to have paresthesias as mentioned previously. Objective - Vital Signs Vital signs: Vital Signs Temp 98.0 F 10/27/22 07:38 Pulse 79 10/27/22 07:38 Resp 18 10/27/22 07:38 BP 121/70 10/27/22 07:38 Pulse Ox 94 L 10/27/22 07:38 FiO2 Intake & Output 10/26/22 10/27/22 10/27/22 18:59 06:59 18:59 Intake Total 1000 1511.2 Balance 1000 1511.2 Intake: Intake, IV Titration 1000 1011.2 Amount Mvi, Adult No.4 with Vit 1011.2 K 10 ml Thiamine 100 mg Folic Acid 1 mg In Sodium Chloride 0.9% 1,000 ml @ 100 mls/hr IV .BY DURATION [facility] Rx#: [id number] Sodium Chloride 0.9% 1, 1000 000 ml @ 100 mls/hr IV . BY DURATION [facility] Rx#: [id number] Oral 500 Other: Voiding Method Bedside Commode Bedside Commode Diaper Diaper # Voids 1 1 # Bowel Movements 1 1 - Exam Patient's mental status, speech and language functions are normal. Cranial nerves are all normal. Facial strength is normal bilaterally. Tongue protrudes the midline. Visual huerta full. Vibrations sense absent at the toes, ankles and knees. Decreased vibrations in the fingers also. Joint position sense also decreased. On muscle strength testing, there is no pronator drift and the strength is (right/left) deltoid 4+5-/4+5-, biceps 4+/4+, triceps 4+/4+, food aide 4+/4+, interossei 4+/4+, hip flexion 3+/3+, knee extension 5-/5-, hip abduction 4+/4+, hip adduction 5/5, ankle dorsiflexion 5/5, inversion 5/5, Peronei 5/5, toe extension 4+5-/4+5-. 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 Patient has weakness, distally and proximally, with areflexia as well as decreased sensation in the hands in glove distribution, and in legs from toes all the way up to the groin. Rule out CIDP versus paraneoplastic polyneuropathy versus nutritional deficiencies related to alcoholism. * History of benign ovarian mass removal, in June 2022 * Hypertension * Tobacco use * Alcoholism Plan: * Patient's blood workup so far unremarkable. Quantitative immunoglobulins normal, serum protein electrophoresis, immunofixation electrophoresis showed no monoclonal paraprotein. Sjogren's antibodies, DANYA negative. TSH normal, B12 838, methylmalonic acid normal <0.10, B6 is borderline 7. Patient on replacement with B6 50 mg daily. Hemoglobin A1c 5.3 on 10/19/2021. * Await anti-hue, anti-Yo and voltage gated calcium channel antibodies to rule out paraneoplastic syndrome. * Await lumbar puncture to evaluate for CSF proteins rule out CIDP. Patient may be a candidate for IVIG. * Recommend EMG and nerve conduction studies of upper and lower extremities to evaluate for the type and severity of polyneuropathy * Patient strongly recommended about tobacco and alcohol cessation. * PT OT also following.
[2022-10-28] MEDS: HYDROcodone/APAP 5-325MG 1 EACH TAB PO PRN ×3 (00:14→17:49)
[2022-10-28] MEDS: POTASSIUM CHLORIDE ER 20 MEQ TAB.ER PO SCH (00:14)
[2022-10-28] MEDS: LEVOTHYROXINE 75 MCG TAB PO SCH (06:12)
[2022-10-28] MEDS: 1: MVI, ADULT NO.4 WITH VIT K 10 ML, THIAMINE 100 MG, FOLIC ACID 1 MG in SODIUM CHLORIDE IV SCH ×8 (06:37→17:00)
[2022-10-28] MEDS: PANTOPRAZOLE 40 MG/10 ML VIAL IV SCH (08:48)
[2022-10-28] MEDS: amLODIPine 10 MG TAB PO SCH (08:48)
[2022-10-28] MEDS: METOPROLOL SUCCINATE (ER) 25 MG TAB.ER.24H PO SCH (08:48)
[2022-10-28] MEDS: FOLIC ACID 1 MG TAB PO SCH (08:48)
[2022-10-28] MEDS: LACTULOSE 20 GM/30 ML CUP PO SCH (08:48)
[2022-10-28] MEDS: ASPIRIN 81 MG PO SCH (08:48)
[2022-10-28] MEDS: PYRIDOXINE 50 MG TAB PO SCH (08:51)
--- NOTE | 2022-10-28 12:48 | P.PN ---
Subjective Progress Note Date: 10/28/22 CHIEF COMPLAINT: Abdominal pain HISTORY OF PRESENT ILLNESS: Patient is sitting at bedside chair. She reports improvement in the abdominal pain. She still has some discomfort on that right side. She denies any nausea or vomiting. She did have a bowel movement yesterday. She is followed by neurology regarding her weakness. They're planning to start her on IVIG today. She underwent a lumbar puncture yesterday. HIDA normal. Afebrile. Patient seen and examined with Dr. duval PHYSICAL EXAM: VITAL SIGNS: Reviewed. GENERAL: Well-developed in no acute distress. HEENT: No sclera icterus. Extraocular movements grossly intact. Moist buccal mucosa. Head is atraumatic, normocephalic. ABDOMEN: Soft. Nondistended. NEUROLOGIC: Alert and oriented. Cranial nerves II through XII grossly intact. ASSESSMENT: 1. Abdominal pain 2. Right anterior abdominal wall hematoma at trocar site is likely the noted fluid collection on the CAT scan 3. Cholelithiasis 4. Mole in right upper quadrant of abdomen 5. Constipation 6. Daily alcohol use PLAN: -Patient can be discharged from surgical standpoint when medically cleared -Recommend that patient follows up in [address] Duval -No surgical intervention planned on the abdominal wall hematoma -Recommend outpatient removal of mole from abdomen -Further gallbladder workup outpatient Physician [employer] Setting Machine Operator note has been reviewed by physician. Signing provider agrees with the documented findings, assessment, and plan of care. Objective - Vital Signs Vital signs: Vital Signs Temp 97.9 F 10/28/22 07:08 Pulse 77 10/28/22 07:08 Resp 16 10/28/22 07:08 BP 115/75 10/28/22 07:08 Pulse Ox 92 L 10/28/22 07:08 FiO2 Intake & Output 10/27/22 10/28/22 10/28/22 18:59 06:59 18:59 Intake Total 2010.2 Balance 2010.2 Intake: Intake, IV Titration 2010.2 Amount Mvi, Adult No.4 with Vit 2010.2 K 10 ml Thiamine 100 mg Folic Acid 1 mg In Sodium Chloride 0.9% 1,000 ml @ 100 mls/hr IV .BY DURATION [facility] Rx#: [id number] Other: Voiding Method Bedside Commode Bedside Commode Bedside Commode Diaper Diaper Diaper # Voids 3 3 - Labs CBC & Chem 7: 10/25/22 05:30 10/28/22 04:47 Labs: Microbiology - Last 24 Hours (Table) 10/27/22 11:03 CSF Gram Stain - Preliminary Cerebral Spinal Fluid
[2022-10-28] MEDS ORDERED: IMMUNE GLOBULIN (GAMMAGARD) 30 GM in EMPTY BAG 1 BAG IV ONE ×2 (13:00→16:00)
[2022-10-28 14:34] VITALS: BMI 28.4
[2022-10-28] MEDS ORDERED: IMMUNE GLOBULIN (GAMMAGARD) 5 GM in EMPTY BAG 1 BAG IV ONE (16:00)
[2022-10-28] MEDS: HEPARIN SODIUM,PORCINE/PF 5,000 UNIT/0.5 ML SYRINGE SQ SCH ×2 (17:49→23:34)
--- NOTE | 2022-10-28 17:57 | P.PN ---
Subjective Progress Note Date: 10/28/22 This is a 62-year-old female with PMH of HTN, HLD, tobacco and alcohol abuse, recently admitted with alcohol intoxication-serum alcohol level 120, June, presented to the ER with complaints of progressive weakness in all 4 extremities over the last year. Denies back pain. Denies fever or chills. Reports chest pressure 1 year, midsternal with shortness of breath and nausea accompanied by bloating .Denies prior endoscopies. She recently had a full cardiac workup. Regarding her right ovarian cyst, suspected malignancy, reported on CT in June 2022; patient states she followed up with both oncology out of [place] and was referred to [facility] [facility] Dr. Ramos in [place], ovarian mass removed and states it was negative for cancer. Patient reports a history of IBS greater than 10 years, chronic constipation. On last discharge patient had been instructed to take MiraLAX daily, patient was noncompliant. Patient has not followed up with PCPs office since June admission. Patient proceeds to inform us that she has significant abdominal bloating, tender and unable to sleep on her stomach. States she is unable to walk. Reports she has decreased her alcohol intake from 4-5 "tall boys" down to 1 daily. Also reports she has a very dry mouth has not been eating except for little spoonfulls. Patient also reports she has had no bowel movement since her prior discharge on July 12. Upon requestioning, patient stated "barely minimal small jaun daily, but that doesn't count". WBC 9.1 hemoglobin 18.5 hematocrit 56.8, MCV 92.9, platelets 273, INR 1.3 sodium 134 potassium 4.0 BUN 13 creatinine 0.4 total bilirubin 1.0 AST 86 ALT 48 alkaline phosphatase 125, ammonia 33 , troponin negative 1 ,TSH 0.865. UA negative, serum alcohol less than 10. 10/25/2022 evaluated by GI, recommendations noted and appreciated. maintained on lactulose, four reported loose stools. Sensorium improved. Ammonia decreased to 24. Abdominal pain improved, less distended. CT of abdomen/pelvis completed reporting cholelithiasis, fatty infiltration of liver, right anterior abdominal wall mass/fluid collection-possibly postsurgical in nature, resolution of large right adnexal mass seen on prior study. General surgery consult in place, recommendations pending .Denies chest pain, palpitations or shortness of breath. Denies lightheadedness, dizziness. Reports ongoing weakness of all 4 extremities-neuro consult in place, recommendations pending. CA 125 24.2. 10/26/2022 maintained on IV fluids, lactulose. Multiple bowel movements yesterday, lactulose frequency decreased. Loose bowel movement 1 this morning. Positive diet intake with no nausea, vomiting. Reports continuous bloating- soft. States Bilateral lower extremity weakness persists with pain in toes of bilateral feet as well as bilateral knees : Positive sensation light touch of lower extremities present. Evaluated by general surgery, hyda scan pending. Evaluated by neurology, neuro workup in progress including ruling out CIDP, LP ordered. 10/27/2022 neuro workup in progress, LP pending. Currently sitting up at bedside commode. Continues on lactulose,averaging 1-2 BMs/24hrs. denies abdominal pain, complains of mild bloating. Reports lower extremity weakness, numbness sensation persist and feet remain painful. Ambulated about 4 feet in room with physical therapy's assistance in maintaining balance. HIDA scan reported normal. 10/28/22. Pt feeling better today, less abdominal pain and BM more regular. She continues to complain of significant weakness of all 4 extremities. Started on IVIG per neurology. Objective - Vital Signs Vital signs: Vital Signs Temp 98.6 F 10/28/22 12:37 Pulse 74 10/28/22 12:37 Resp 16 10/28/22 12:37 BP 115/77 10/28/22 12:37 Pulse Ox 99 10/28/22 12:37 FiO2 Intake & Output 10/27/22 10/28/22 10/28/22 18:59 06:59 18:59 Intake Total 2010.2 500 Balance 2010.2 500 Weight 77.564 kg Intake: Intake, IV Titration 2010.2 Amount Mvi, Adult No.4 with Vit 2010.2 K 10 ml Thiamine 100 mg Folic Acid 1 mg In Sodium Chloride 0.9% 1,000 ml @ 100 mls/hr IV .BY DURATION [facility] Rx#: [id number] Oral 500 Other: Voiding Method Bedside Commode Bedside Commode Bedside Commode Diaper Diaper Diaper # Voids 3 3 - Exam Gen: elderly female NAD CV: RRR Lungs: CTAB Abd: soft, nontender - Labs CBC & Chem 7: 10/25/22 05:30 10/28/22 04:47 Labs: Microbiology - Last 24 Hours (Table) 10/27/22 11:03 CSF Gram Stain - Preliminary Cerebral Spinal Fluid Assessment and Plan Plan: Continue with lactulose bid and start IVIG per neurology. Continue with remainder of medical regimen. PT, OT evaluation
--- NOTE | 2022-10-28 19:49 | P.PN ---
Subjective Progress Note Date: 10/28/22 Patient was seen for a follow-up. Patient is sitting in the wheelchair, working with the physical therapist. Denies any changes in her condition. Continues to have paresthesias as mentioned previously. She is slightly better, but still is two assist. Objective - Vital Signs Vital signs: Vital Signs Temp 97.9 F 10/28/22 07:08 Pulse 77 10/28/22 07:08 Resp 16 10/28/22 07:08 BP 115/75 10/28/22 07:08 Pulse Ox 92 L 10/28/22 07:08 FiO2 Intake & Output 10/27/22 10/28/22 10/28/22 18:59 06:59 18:59 Intake Total 2010.2 Balance 2010. Intake: Intake, IV Titration 2010. Amount Mvi, Adult No.4 with Vit 2010. K 10 ml Thiamine 100 mg Folic Acid 1 mg In Sodium Chloride 0.9% 1,000 ml @ 100 mls/hr IV .BY DURATION [facility] Rx#: [id number] Other: Voiding Method Bedside Commode Bedside Commode Diaper Diaper # Voids 3 3 - Exam Patient's mental status, speech and language functions are normal. Cranial nerves are all normal. Facial strength is normal bilaterally. Tongue protrudes the midline. Visual huerta full. Vibrations sense absent at the toes, ankles and knees. Decreased vibrations in the fingers also. Joint position sense also decreased. Pinprick decreased from toes up to about knees bilaterally. In the upper extremities, pinprick decreased from fingertips up to just below elbow bilaterally. On muscle strength testing, there is no pronator drift and the strength is (right/left) deltoid 4+5-/4+5-, biceps 4+/4+, triceps 4+/4+, cco & president 4+/4+, interossei 4+/4+, hip flexion 3+/3+, knee extension 5-/5-, hip abduction 4+/4+, hip adduction 5/5, ankle dorsiflexion 5/5, inversion 5/5, Peronei 5/5, toe extension 4+5-/4+5-. Patient is diffusely areflexic. 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 Patient has weakness, distally and proximally, with areflexia as well as decreased sensation in the hands in glove distribution, and in legs from toes all the way up to the groin. Rule out CIDP versus paraneoplastic polyneuropathy versus nutritional deficiencies related to alcoholism. * History of benign ovarian mass removal, in June 2022 * Hypertension * Tobacco use * Alcoholism Plan: * Patient's blood workup so far unremarkable. Quantitative immunoglobulins normal, serum protein electrophoresis, immunofixation electrophoresis showed no monoclonal paraprotein. Sjogren's antibodies, DANYA negative. TSH normal, B12 838, methylmalonic acid normal <0.10, B6 is borderline 7. Patient on replacement with B6 50 mg daily. Hemoglobin A1c 5.3 on 10/19/2021. * Await anti-hue, anti-Yo and voltage gated calcium channel antibodies to rule out paraneoplastic syndrome. * Lumbar puncture with CSF glucose 68, CSF protein 51 which is normal, CSF RBC 1, CSF WBC 0. MS panel, myelin basic protein, angiotensin-converting enzyme levels pending. * Patient's clinical presentation is highly suggestive of CIDP. Normal CSF protein does not rule out the diagnosis of CIDP. Unfortunately EMG cannot be performed as an in-patient. Patient will be given a loading dose of IVIG, 2 g/kg, divided over 2 days (1 g/kg per day for 2 days). * Start heparin 5000 units subcu every 8 hours for DVT prophylaxis. * Recommend outpatient EMG and nerve conduction studies of upper and lower extremities to evaluate for the type and severity of polyneuropathy. Patient will need follow up with neurologist outpatient. * Patient strongly recommended about tobacco and alcohol cessation. * PT OT also following.
[2022-10-29] MEDS: HYDROcodone/APAP 5-325MG 1 EACH TAB PO PRN ×4 (00:21→21:43)
[2022-10-29] MEDS: 1: MVI, ADULT NO.4 WITH VIT K 10 ML, THIAMINE 100 MG, FOLIC ACID 1 MG in SODIUM CHLORIDE IV SCH ×12 (04:43→23:35)
[2022-10-29] MEDS: LEVOTHYROXINE 75 MCG TAB PO SCH (06:00)
[2022-10-29] MEDS: HEPARIN SODIUM,PORCINE/PF 5,000 UNIT/0.5 ML SYRINGE SQ SCH ×3 (08:18→23:35)
[2022-10-29] MEDS: ASPIRIN 81 MG PO SCH (08:18)
[2022-10-29] MEDS: LACTULOSE 20 GM/30 ML CUP PO SCH (08:18)
[2022-10-29] MEDS: PYRIDOXINE 50 MG TAB PO SCH (08:21)
[2022-10-29] MEDS: PANTOPRAZOLE 40 MG/10 ML VIAL IV SCH (09:06)
--- NOTE | 2022-10-29 11:56 | P.PN ---
Subjective Progress Note Date: 10/29/22 Principal diagnosis: Abdominal pain Patient doing well today. Says she is tolerating her diet. Says she has no significant abdominal pain currently. Mostly having back pain. Her shortness of breath is improved. Objective - Vital Signs Vital signs: Vital Signs Temp 97.8 F 10/29/22 07:35 Pulse 96 10/29/22 07:35 Resp 16 10/29/22 07:35 BP 106/72 10/29/22 07:35 Pulse Ox 94 L 10/29/22 07:35 FiO2 Intake & Output 10/28/22 10/29/22 10/29/22 18:59 06:59 18:59 Intake Total 2551.05 100.75 Balance 2551.05 100.75 Weight 77.564 kg Intake: IV 1000 Mvi, Adult No.4 with Vit 1000 K 10 ml Thiamine 100 mg Folic Acid 1 mg In Sodium Chloride 0.9% 1,000 ml @ 100 mls/hr IV .BY DURATION [facility] Rx#: [id number] Intake, IV Titration 1051.05 100.75 Amount Immune Globulin ( 39.85 100.75 Gammagard) 30 gm In Empty Bag 1 bag @ Per Protocol IV .Q0M ONE Rx#: [id number] Mvi, Adult No.4 with Vit 1011.2 K 10 ml Thiamine 100 mg Folic Acid 1 mg In Sodium Chloride 0.9% 1,000 ml @ 100 mls/hr IV .BY DURATION [facility] Rx#: [id number] Oral 500 Other: Voiding Method Bedside Commode Bedside Commode Bedside Commode Diaper Diaper Diaper # Voids 1 1 # Bowel Movements 1 1 - Exam Abdomen: Soft, , mild tenderness at trocar site, nondistended - Labs CBC & Chem 7: 10/25/22 05:30 10/28/22 04:47 Labs: Microbiology - Last 24 Hours (Table) 10/27/22 11:03 CSF Gram Stain - Preliminary Cerebral Spinal Fluid Assessment and Plan (1) Abdominal pain Narrative/Plan: 62-year-old female doing better at this time. Continue diet as tolerated. Con tinue workup by other services. Dr. Vargas we'll reevaluate on Monday if patient still an inpatient. Current Visit: Yes Status: Acute Code(s): R10.9 - UNSPECIFIED ABDOMINAL PAIN SNOMED Code(s): 60059230
[2022-10-29] MEDS ORDERED: IMMUNE GLOBULIN (GAMMAGARD) 30 GM in EMPTY BAG 1 BAG IV ONE ×2 (13:00→16:00)
[2022-10-29] MEDS: FOLIC ACID 1 MG TAB PO SCH (13:05)
[2022-10-29] MEDS: amLODIPine 10 MG TAB PO SCH (13:10)
[2022-10-29] MEDS ORDERED: Potassium Replacement Protocol 1 EACH MISC MISCELLANE PRN (15:01)
[2022-10-29] MEDS ORDERED: Magnesium Replacement Protocol 1 EACH MISC MISCELLANE PRN (15:01)
[2022-10-29] MEDS ORDERED: IMMUNE GLOBULIN (GAMMAGARD) 5 GM in EMPTY BAG 1 BAG IV ONE (16:00)
--- NOTE | 2022-10-29 16:04 | PN ---
PROGRESS NOTE DATE OF SERVICE: 10/29/2022 SUBJECTIVE: This is a 62-year-old woman with a past medical history of multiple medical problems, admitted with possible CIDP versus paraneoplastic polyneuropathy and is receiving IV immunoglobulin. Neurology and multiple consultants are following the patient. No chest pain. No palpitation. OBJECTIVE: VITAL SIGNS: Pulse is 90, blood pressure 106/70, respirations 17. CHEST: Clear to auscultation. CARDIOVASCULAR: S1 and S2. ABDOMEN: Soft. NERVOUS SYSTEM: Diffusely weak, mostly proximal muscle weakness. LABORATORY DATA: Reviewed. ASSESSMENT: 1. 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 2. History of benign ovarian tumor removal. 3. Hypertension. 4. History of EtOH. RECOMMENDATIONS: Recommended to continue current management. Continue with IVIG and PT/OT evaluation. Otherwise, I would also repeat labs as well. Prognosis is guarded. Further recommendations to follow. MMODL / IJN: [id number] /
[2022-10-29 16:44] LABS: ALT 40 U/L (4-34); AST 65 U/L (14-36); African American GFR (CKD) >90 (>60 ml/min/1.73 sqM); Albumin 2.9 g/dL (3.5-5.0); Albumin/Globulin Ratio 0.7; Alkaline Phosphatase 97 U/L (38-126); Anion Gap 7 mmol/L; Bilirubin,Unconjugated 0.2 mg/dL (0.0-1.1); Blood Urea Nitrogen 6 mg/dL (7-17); Calcium 7.8 mg/dL (8.4-10.2); Carbon Dioxide 26 mmol/L (22-30); Chloride 107 mmol/L (98-107); Globulin 4.3 g/dL; Glucose 110 mg/dL (74-99); Non-African American GFR(CKD) >90 (>60 ml/min/1.73 sqM); Potassium 3.7 mmol/L (3.5-5.1); Sodium 140 mmol/L (137-145); Total Bilirubin 0.5 mg/dL (0.2-1.3); Total Protein 7.2 g/dL (6.3-8.2)
[2022-10-29] MEDS ORDERED: POTASSIUM CHLORIDE ER 20 MEQ TAB.ER PO SCH (20:00)
[2022-10-30] MEDS: HYDROcodone/APAP 5-325MG 1 EACH TAB PO PRN ×3 (05:00→18:27)
[2022-10-30] MEDS: LEVOTHYROXINE 75 MCG TAB PO SCH (06:21)
[2022-10-30] MEDS: METOPROLOL SUCCINATE (ER) 25 MG TAB.ER.24H PO SCH (07:52)
[2022-10-30] MEDS: HEPARIN SODIUM,PORCINE/PF 5,000 UNIT/0.5 ML SYRINGE SQ SCH ×3 (07:52→23:48)
[2022-10-30] MEDS: LACTULOSE 20 GM/30 ML CUP PO SCH (07:52)
[2022-10-30] MEDS: amLODIPine 10 MG TAB PO SCH (07:52)
[2022-10-30] MEDS: ASPIRIN 81 MG PO SCH (07:52)
[2022-10-30] MEDS: PYRIDOXINE 50 MG TAB PO SCH (07:53)
[2022-10-30] MEDS: PANTOPRAZOLE 40 MG/10 ML VIAL IV SCH (07:53)
[2022-10-30 09:16] LABS: Basophils # (A) 0.03 X 10*3/uL (0.00-0.10); Basophils % (A) 0.7 %; Eosinophils # (A) 0.14 X 10*3/uL (0.04-0.35); Eosinophils % (A) 3.3 %; HCT 40.6 % (37.2-46.3); HGB 12.7 g/dL (12.0-15.0); Immature Grans, Automated 0.2 %; Lymphocytes # (A) 0.53 X 10*3/uL (0.90-5.00); Lymphocytes % (A) 12.4 %; MCHC 31.3 g/dL (32.0-37.0); MCV 95.8 fL (80.0-97.0); Mean Platelet Volume 10.8 fL (9.5-12.2); Monocytes # (A) 0.62 X 10*3/uL (0.20-1.00); Monocytes % (A) 14.5 %; NRBC Per 100 WBC 0 /100 WBCS (0.0-0.0); Neutrophils # (A) 2.96 X 10*3/uL (1.80-7.70); Neutrophils % (A) 68.9 %; Platelet Count 236 X 10*3/uL (140-440); RBC 4.24 X 10*6/uL (4.10-5.20); RDW 14.4 % (11.5-14.5); WBC 4.29 X 10*3/uL (4.50-10.00)
[2022-10-30 10:37] LABS: Magnesium 1.7 mg/dL (1.5-2.4)
[2022-10-30 10:38] LABS: African American GFR (CKD) 133.1 (60.0-200.0); Anion Gap 6.5 mmol/L (10.00-18.00); BUN/Creat Ratio 12.78 Ratio (12.00-20.00); Blood Urea Nitrogen 4.7 mg/dL (9.0-27.0); Carbon Dioxide 25.3 mmol/L (20.0-27.5); Non-African American GFR(CKD) 114.8 (60.0-200.0); Potassium 3.8 mmol/L (3.5-5.5)
--- NOTE | 2022-10-30 10:39 | P.PN ---
Subjective Progress Note Date: 10/29/22 Patient was seen for a follow-up. Patient is laying comfortably in the bed. Patient states that she had a little headache yesterday but was gone. She denies any changes in her condition. She is tolerating IVIG very well. Objective - Vital Signs Vital signs: Vital Signs Temp 97.3 F L 10/29/22 13:08 Pulse 90 10/29/22 13:08 Resp 17 10/29/22 13:08 BP 106/71 10/29/22 13:08 Pulse Ox 98 10/29/22 13:08 FiO2 Intake & Output 10/28/22 10/29/22 10/29/22 18:59 06:59 18:59 Intake Total 2551.05 100.75 Balance 2551.05 100.75 Weight 77.564 kg Intake: IV 1000 Mvi, Adult No.4 with Vit 1000 K 10 ml Thiamine 100 mg Folic Acid 1 mg In Sodium Chloride 0.9% 1,000 ml @ 100 mls/hr IV .BY DURATION [facility] Rx#: [id number] Intake, IV Titration 1051.05 100.75 Amount Immune Globulin ( 39.85 100.75 Gammagard) 30 gm In Empty Bag 1 bag @ Per Protocol IV .Q0M ONE Rx#: [id number] Mvi, Adult No.4 with Vit 1011.2 K 10 ml Thiamine 100 mg Folic Acid 1 mg In Sodium Chloride 0.9% 1,000 ml @ 100 mls/hr IV .BY DURATION [facility] Rx#: [id number] Oral 500 Other: Voiding Method Bedside Commode Bedside Commode Bedside Commode Diaper Diaper Diaper # Voids 1 1 # Bowel Movements 1 1 - Exam Patient's mental status, speech and language functions are normal. Cranial nerves are all normal. Facial strength is normal bilaterally. Tongue protrudes the midline. Visual huerta full. Vibrations sense absent at the toes, ankles and knees. Decreased vibrations in the fingers also. Joint position sense also decreased. Pinprick decreased from toes up to about knees bilaterally. In the upper extremities, pinprick decreased from fingertips up to just below elbow bilaterally. On muscle strength testing, there is no pronator drift and the strength is (right/left) deltoid 4+5-/4+5-, biceps 4+/4+, triceps 4+/4+, cigar head stringer 4+/4+, interossei 4+/4+, hip flexion 3+/3+, knee extension 5-/5-, hip abduction 4+/4+, hip adduction 5/5, ankle dorsiflexion 5/5, inversion 5/5, Peronei 5/5, toe extension 4+5-/4+5-. Patient is diffusely areflexic. 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 Patient has weakness, distally and proximally, with areflexia as well as decreased sensation in the hands in glove distribution, and in legs from toes all the way up to the groin. 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 * History of benign ovarian mass removal, in June 2022 * Hypertension * Tobacco use * Alcoholism Plan: * Patient's blood workup so far unremarkable. Quantitative immunoglobulins normal, serum protein electrophoresis, immunofixation electrophoresis showed no monoclonal paraprotein. Sjogren's antibodies, DANYA negative. TSH normal, B12 838, methylmalonic acid normal <0.10, B6 is borderline 7. Patient on replacement with B6 50 mg daily. Hemoglobin A1c 5.3 on 10/19/2021. * Await anti-hue, anti-Yo and voltage gated calcium channel antibodies to rule out paraneoplastic syndrome. * Lumbar puncture with CSF glucose 68, CSF protein 51 which is normal, CSF RBC 1, CSF WBC 0. MS panel, myelin basic protein, angiotensin-converting enzyme levels pending. * Patient's clinical presentation is highly suggestive of CIDP. Normal CSF protein does not rule out the diagnosis of CIDP. Unfortunately EMG cannot be performed as an in-patient. Patient will be given a loading dose of IVIG, 2 g/kg, divided over 2 days (1 g/kg per day for 2 days). * Start heparin 5000 units subcu every 8 hours for DVT prophylaxis. * Recommend outpatient EMG and nerve conduction studies of upper and lower extremities to evaluate for the type and severity of polyneuropathy. Patient will need follow up with neurologist outpatient. * Patient strongly recommended about tobacco and alcohol cessation. * Repeat metabolic panel shows normal renal functions, and hepatic functions have improved with AST 65 (from 86), ALT 40 (from 48). Patient to receive the second dose of IVIG today. If remains stable overnight, will be clear for discharge in the morning. * PT OT also following.
[2022-10-30] MEDS: FOLIC ACID 1 MG TAB PO SCH (11:30)
[2022-10-30] MEDS: 1: MVI, ADULT NO.4 WITH VIT K 10 ML, THIAMINE 100 MG, FOLIC ACID 1 MG in SODIUM CHLORIDE IV SCH ×8 (12:11→21:45)
[2022-10-30] MEDS ORDERED: IMMUNE GLOBULIN (GAMMAGARD) 30 GM in EMPTY BAG 1 BAG IV ONE (13:00)
[2022-10-31] MEDS: HYDROcodone/APAP 5-325MG 1 EACH TAB PO PRN ×4 (00:50→21:04)
--- NOTE | 2022-10-31 02:14 | P.PN ---
Subjective Progress Note Date: 10/30/22 Patient was seen for a follow-up. Patient states that she is having a lot of headache, rating 7-8/10, occurred all night long. Still has it. Patient has chronic low back pain, complaining of entire anterior abdomen region pain full. The heating pad is helping with her low back pain. Patient states that the low back pain is not new, she has it off and on for last 1 year. It flares up, and gets better. She believes that her feet are hurting more, uncertain if the nerves are waking up. Objective - Vital Signs Vital signs: Vital Signs Temp 98.4 F 10/30/22 13:00 Pulse 103 H 10/30/22 13:00 Resp 18 10/30/22 13:00 BP 97/56 10/30/22 13:00 Pulse Ox 99 10/30/22 13:00 FiO2 Intake & Output 10/29/22 10/30/22 10/30/22 18:59 06:59 18:59 Intake Total 1255.617 Balance 1255.617 Intake: Intake, IV Titration 1255.617 Amount Immune Globulin ( 231 Gammagard) 30 gm In Empty Bag 1 bag @ Per Protocol IV .Q0M ONE Rx#: [id number] Immune Globulin ( 13.417 Gammagard) 5 gm In Empty Bag 1 bag @ Titrate IV . Q0M ONE Rx#:[id number] Mvi, Adult No.4 with Vit 1011.2 K 10 ml Thiamine 100 mg Folic Acid 1 mg In Sodium Chloride 0.9% 1,000 ml @ 100 mls/hr IV .BY [facility]ATION [facility] Rx#: [id number] Other: Voiding Method Bedside Commode Bedside Commode Bedside Commode Diaper Diaper Diaper # Voids 1 3 1 # Bowel Movements 1 1 - Exam Patient's mental status, speech and language functions are normal. Cranial nerves are all normal. Facial strength is normal bilaterally. Tongue protrudes the midline. Visual huerta full. Vibrations sense absent at the toes, ankles and knees. Decreased vibrations in the fingers also. Joint position sense also decreased. Pinprick decreased from toes up to about knees bilaterally. In the upper extremities, pinprick decreased from fingertips up to just below elbow bilaterally. On muscle strength testing, there is no pronator drift and the strength is (right/left) deltoid 4+5-/4+5-, biceps 4+/4+, triceps 4+/4+, airborne mission systems superintendent 4+/4+, interossei 4+/4+, hip flexion 3+/3+, knee extension 5-/5-, hip abduction 4+/4+, hip adduction 5/5, ankle dorsiflexion 5/5, inversion 5/5, Peronei 5/5, toe extension 4+5-/4+5-. Patient is diffusely areflexic. - Labs CBC & Chem 7: 10/30/22 05:32 10/30/22 05:32 Labs: Abnormal Lab Results - Last 24 Hours (Table) 10/29/22 10/30/22 10/30/22 Range/Units 15:11 05:32 05:32 WBC 4.29 L (4.50-10.00) X 10*3/uL MCHC 31.3 L (32.0-37.0) g/dL Lymphocytes # 0.53 L (0.90-5.00) X 10*3/uL Anion Gap 6.50 L (10.00-18.00) mmol/L BUN 6 L 4.7 L (7-17) mg/dL Creatinine 0.39 L 0.4 L (0.52-1.04) mg/dL Glucose 110 H (74-99) mg/dL Calcium 7.8 L 8.0 L (8.4-10.2) mg/dL AST 65 H (14-36) U/L ALT 40 H (4-34) U/L Albumin 2.9 L (3.5-5.0) g/dL Microbiology - Last 24 Hours (Table) 10/27/22 11:03 CSF Gram Stain - Preliminary Cerebral Spinal Fluid CSF Culture - Preliminary Assessment and Plan Assessment: * 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 Patient has weakness, distally and proximally, with areflexia as well as decreased sensation in the hands in glove distribution, and in legs from toes all the way up to the groin. 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 * History of benign ovarian mass removal, in June 2022 * Hypertension * Tobacco use * Alcoholism Plan: * Patient's blood workup so far unremarkable. Quantitative immunoglobulins normal, serum protein electrophoresis, immunofixation electrophoresis showed no monoclonal paraprotein. Sjogren's antibodies, DANYA negative. TSH normal, B12 838, methylmalonic acid normal <0.10, B6 is borderline 7. Patient on replacement with B6 50 mg daily. Hemoglobin A1c 5.3 on 10/19/2021. * Await anti-hue, anti-Yo and voltage gated calcium channel antibodies to rule out paraneoplastic syndrome. * Lumbar puncture with CSF glucose 68, CSF protein 51 which is normal, CSF RBC 1, CSF WBC 0. MS panel, myelin basic protein, angiotensin-converting enzyme levels pending. * Patient's clinical presentation is highly suggestive of CIDP. Normal CSF protein does not rule out the diagnosis of CIDP. Unfortunately EMG cannot be performed as an in-patient. Patient will be given a loading dose of IVIG, 2 g/kg, divided over 2 days (1 g/kg per day for 2 days). Patient has completed IVIG treatment. Patient is experiencing some side effects from IVIG. Hopefully will resolve by morning. * Continue heparin 5000 units subcu every 8 hours for DVT prophylaxis. * Recommend outpatient EMG and nerve conduction studies of upper and lower extremities to evaluate for the type and severity of polyneuropathy. Patient will need follow up with neurologist outpatient. * Patient strongly recommended about tobacco and alcohol cessation. * Repeat metabolic panel this morning shows normal renal functions, and hepatic functions have improved with AST 65 (from 86), ALT 40 (from 48). * Patient is experiencing side effects of IVIG. Observe overnight. If the symptoms resolve, then we will be clear for discharge in the morning. Otherwise Dr. Nnamdi Apple Will resume neurology service in the morning. * PT OT also following.
[2022-10-31] MEDS: LEVOTHYROXINE 75 MCG TAB PO SCH (05:28)
--- NOTE | 2022-10-31 06:23 | PN ---
PROGRESS NOTE DATE OF SERVICE: 10/30/2022 SUBJECTIVE: A 62-year-old woman who was admitted with progressive weakness and polyneuropathy, is also receiving immunoglobins IVIG. No chest pain. No palpitation. PHYSICAL EXAMINATION: VITAL SIGNS: Pulse 103, blood pressure 97/60, respirations 18. CHEST: Clear to auscultation. ABDOMEN: Soft. NERVOUS SYSTEM: Diffusely weak mostly lower legs. ASSESSMENT: 1. Progressive weakness and polyneuropathy, possibly CIDP versus paraneoplastic polyneuropathy. 2. History of benign ovarian tumor removal. 3. Hypertension. 4. History of EtOH. RECOMMENDATIONS: Recommend to continue current management and closely follow with Neurology, IVIG, and Dr. Ku will follow tomorrow. MMODL / IJN: [id number] / RENEE
[2022-10-31] MEDS: PYRIDOXINE 50 MG TAB PO SCH (08:49)
[2022-10-31] MEDS: HEPARIN SODIUM,PORCINE/PF 5,000 UNIT/0.5 ML SYRINGE SQ SCH ×3 (08:49→23:49)
[2022-10-31] MEDS: ASPIRIN 81 MG PO SCH (08:49)
[2022-10-31] MEDS: METOPROLOL SUCCINATE (ER) 25 MG TAB.ER.24H PO SCH (08:49)
[2022-10-31] MEDS: LACTULOSE 20 GM/30 ML CUP PO SCH (08:50)
[2022-10-31] MEDS: amLODIPine 10 MG TAB PO SCH (08:50)
[2022-10-31] MEDS: 1: MVI, ADULT NO.4 WITH VIT K 10 ML, THIAMINE 100 MG, FOLIC ACID 1 MG in SODIUM CHLORIDE IV SCH ×12 (09:24→21:08)
[2022-10-31] MEDS: PANTOPRAZOLE 40 MG/10 ML VIAL IV SCH (09:25)
[2022-10-31] MEDS: FOLIC ACID 1 MG TAB PO SCH (12:49)
[2022-10-31] MEDS ORDERED: IMMUNE GLOBULIN (GAMMAGARD) 30 GM in EMPTY BAG 1 BAG IV ONE (13:00)
--- NOTE | 2022-10-31 13:26 | P.PN ---
Subjective Progress Note Date: 10/31/22 CHIEF COMPLAINT: Abdominal pain HISTORY OF PRESENT ILLNESS: Patient is sitting at bedside chair. Her abdominal pain has improved. The back pain and headache she was experiencing yesterday also improved with heating pads. She is having bowel movements. Denies any nausea vomiting. Tolerating regular diet. Patient still complains of weakness. Patient anticipating dictating possible discharge. Patient seen and examined with Dr. duval PHYSICAL EXAM: VITAL SIGNS: Reviewed. GENERAL: Well-developed in no acute distress. HEENT: No sclera icterus. Extraocular movements grossly intact. Moist buccal mucosa. Head is atraumatic, normocephalic. ABDOMEN: Soft. Nondistended. nontender NEUROLOGIC: Alert and oriented. Cranial nerves II through XII grossly intact. ASSESSMENT: 1. Abdominal pain 2. Right anterior abdominal wall hematoma at trocar site is likely the noted fluid collection on the CAT scan 3. Cholelithiasis 4. Mole in right upper quadrant of abdomen 5. Constipation 6. Daily alcohol use PLAN: -Patient can be discharged from surgical standpoint when medically cleared -Recommend that patient follows up in [address] Duval -No surgical intervention planned on the abdominal wall hematoma -Recommend outpatient removal of mole from abdomen -Further gallbladder workup outpatient Physician Obstetrics Specialist note has been reviewed by physician. Signing provider agrees with the documented findings, assessment, and plan of care. Objective - Vital Signs Vital signs: Vital Signs Temp 98.3 F 10/31/22 07:17 Pulse 94 10/31/22 07:17 Resp 18 10/31/22 07:17 BP 103/65 10/31/22 07:17 Pulse Ox 91 L 10/31/22 09:14 FiO2 21 10/31/22 09:14 Intake & Output 10/30/22 10/31/22 10/31/22 18:59 06:59 18:59 Intake Total 1011.2 2160 Balance 1011.2 2160 Intake: IV 800 Mvi, Adult No.4 with Vit 800 K 10 ml Thiamine 100 mg Folic Acid 1 mg In Sodium Chloride 0.9% 1,000 ml @ 100 mls/hr IV .BY DURATION [facility] Rx#: [id number] Intake, IV Titration 1011.2 1000 Amount Mvi, Adult No.4 with Vit 1011.2 K 10 ml Thiamine 100 mg Folic Acid 1 mg In Sodium Chloride 0.9% 1,000 ml @ 100 mls/hr IV .BY DURATION [facility] Rx#: [id number] Sodium Chloride 0.9% 1, 1000 000 ml @ 100 mls/hr IV . BY DURATION [facility] Rx#: [id number] Oral 360 Other: Voiding Method Bedside Commode Bedside Commode Bedside Commode Diaper Diaper Diaper # Voids 1 2 # Bowel Movements 1 1 1 - Labs CBC & Chem 7: 10/30/22 05:32 10/30/22 05:32 Labs: Abnormal Lab Results - Last 24 Hours (Table) 10/28/22 Range/Units 17:29 Aldolase 7.8 H (1.2-7.6) U/L Microbiology - Last 24 Hours (Table) 10/27/22 11:03 CSF Gram Stain - Preliminary Cerebral Spinal Fluid CSF Culture - Preliminary
[2022-10-31 13:29] VITALS: RESP 16
--- NOTE | 2022-10-31 22:47 | P.PN ---
Subjective Progress Note Date: 10/31/22 She completed her IVIG, states her feeling is slightly improved but continues to complain of significant weakness. Objective - Vital Signs Vital signs: Vital Signs Temp 97.7 F 10/31/22 19:06 Pulse 86 10/31/22 19:06 Resp 16 10/31/22 19:06 BP 101/66 10/31/22 19:06 Pulse Ox 94 L 10/31/22 19:06 FiO2 21 10/31/22 09:14 Intake & Output 10/31/22 10/31/22 11/01/22 06:59 18:59 06:59 Intake Total 2160 1011.2 1000 Balance 2160 1011.2 1000 Intake: IV 800 Mvi, Adult No.4 with Vit 800 K 10 ml Thiamine 100 mg Folic Acid 1 mg In Sodium Chloride 0.9% 1,000 ml @ 100 mls/hr IV .BY DURATION [facility] Rx#: [id number] Intake, IV Titration 1000 1011.2 1000 Amount Mvi, Adult No.4 with Vit 1011.2 K 10 ml Thiamine 100 mg Folic Acid 1 mg In Sodium Chloride 0.9% 1,000 ml @ 100 mls/hr IV .BY DURATION [facility] Rx#: [id number] Sodium Chloride 0.9% 1, 1000 1000 000 ml @ 100 mls/hr IV . BY DURATION [facility] Rx#: [id number] Oral 360 Other: Voiding Method Bedside Commode Bedside Commode Bedside Commode Diaper Diaper Diaper # Voids 2 2 # Bowel Movements 1 1 - Exam Gen: elderly female NAD CV: RRR Lungs: CTAB Abd: soft, nontender - Labs CBC & Chem 7: 10/30/22 05:32 10/30/22 05:32 Labs: Abnormal Lab Results - Last 24 Hours (Table) 10/28/22 Range/Units 17:29 Aldolase 7.8 H (1.2-7.6) U/L Microbiology - Last 24 Hours (Table) 10/27/22 11:03 CSF Gram Stain - Preliminary Cerebral Spinal Fluid CSF Culture - Preliminary Assessment and Plan Plan: Continue with lactulose bid. Continue with remainder of medical regimen. PT, OT. Discharge planning anticipate next 24 hours for [facility]OG[facility]. Neuro following
[2022-11-01] MEDS: HYDROcodone/APAP 5-325MG 1 EACH TAB PO PRN ×2 (03:05→10:15)
[2022-11-01] MEDS: LEVOTHYROXINE 75 MCG TAB PO SCH (03:05)
--- NOTE | 2022-11-01 08:26 | P.DS ---
Providers Date of admission: 10/23/22 17:37 Expected date of discharge: 11/01/22 Attending physician: Jacob Ku MD Consults: 10/24/22 17:23 Consult Physician Routine Consulting Provider: Mario Ramirez Consult Reason/Comments: bilateral uppper and lower exrtemity weakness. Do you want consulting provider notified?: Yes 10/25/22 10:03 Consult Physician Routine Consulting Provider: Mahin Vargas Consult Reason/Comments: abdominal wall mass/fluid collection Do you want consulting provider notified?: Already Contacted Primary care physician: Jacob Ku MD Hospital Course: This is a 62-year-old female with PMH of HTN, HLD, tobacco and alcohol abuse, recently admitted with alcohol intoxication-serum alcohol level 120, June, presented to the ER with complaints of progressive weakness in all 4 extremities over the last year. Denies back pain. Denies fever or chills. Reports chest pressure 1 year, midsternal with shortness of breath and nausea a ccompanied by bloating .Denies prior endoscopies. She recently had a full cardiac workup. Regarding her right ovarian cyst, suspected malignancy, reported on CT in June 2022; patient states she followed up with both oncology out of [place] and was referred to CLINICAL SECR[facility]ARY Dr. Ramos in [place], ovarian mass removed and states it was negative for cancer. Patient reports a history of IBS greater than 10 years, chronic constipation. On last discharge patient had been instructed to take MiraLAX daily, patient was noncompliant. Patient has not followed up with PCPs office since June admission. Patient proceeds to inform us that she has significant abdominal bloating, tender and unable to sleep on her stomach. States she is unable to walk. Reports she has decreased her alcohol intake from 4-5 "tall boys" down to 1 daily. Also reports she has a very dry mouth has not been eating except for little spoonfulls. Patient also reports she has had no bowel movement since her prior discharge on July 12. Upon requestioning, patient stated "barely minimal small jaun daily, but that doesn't count". WBC 9.1 hemoglobin 18.5 hematocrit 56.8, MCV 92.9, platelets 273, INR 1.3 sodium 134 potassium 4.0 BUN 13 creatinine 0.4 total bilirubin 1.0 AST 86 ALT 48 alkaline phosphatase 125, ammonia 33 , troponin negative 1 ,TSH 0.865. UA negative, serum alcohol less than 10. 10/25/2022 evaluated by GI, recommendations noted and appreciated. maintained on lactulose, four reported loose stools. Sensorium improved. Ammonia decreased to 24. Abdominal pain improved, less distended. CT of abdomen/pelvis completed reporting cholelithiasis, fatty infiltration of liver, right anterior abdominal wall mass/fluid collection-possibly postsurgical in nature, resolution of large right adnexal mass seen on prior study. General surgery consult in place, recommendations pending .Denies chest pain, palpitations or shortness of breath. Denies lightheadedness, dizziness. Reports ongoing weakness of all 4 extremities-neuro consult in place, recommendations pending. CA 125 24.2. 10/26/2022 maintained on IV fluids, lactulose. Multiple bowel movements yesterday, lactulose frequency decreased. Loose bowel movement 1 this morning. Positive diet intake with no nausea, vomiting. Reports continuous bloating- soft. States Bilateral lower extremity weakness persists with pain in toes of bilateral feet as well as bilateral knees : Positive sensation light touch of lower extremities present. Evaluated by general surgery, hyda scan pending. Evaluated by neurology, neuro workup in progress including ruling out CIDP, LP ordered. 10/27/2022 neuro workup in progress, LP pending. Currently sitting up at bedside commode. Continues on lactulose,averaging 1-2 BMs/24hrs. denies abdominal pain, complains of mild bloating. Reports lower extremity weakness, numbness sensation persist and feet remain painful. Ambulated about 4 feet in room with physical therapy's assistance in maintaining balance. HIDA scan reported normal. 10/28/22. Pt feeling better today, less abdominal pain and BM more regular. She continues to complain of significant weakness of all 4 extremities. Started on IVIG per neurology. 10/31: Pt completed IVIG and did develop slight headache but overall tolerated well. She is feeling improved today and states she is less numb than previously. Anti calcium channel Ab and other send out tests pending. Neurology following. Pt discharged in stable condition to subacute rehab, recommended to closely follow with her PCP and neurology as an outpatient. Patient Condition at Discharge: Fair Plan - Discharge Summary Discharge Rx Participant: No New Discharge Prescriptions: New Lactulose [Cephulac] 30 gm PO DAILY #1800 ml Continue Metoprolol Succinate (ER) [Toprol XL] 25 mg PO DAILY Levothyroxine Sodium [Synthroid] 75 mcg PO DAILY amLODIPine [Norvasc] 10 mg PO DAILY Folic Acid 1 mg PO DAILY@1200 tab Aspirin EC [Ecotrin Low Dose] 81 mg PO DAILY #30 tab Ibuprofen [Motrin] 600 mg PO Q6HR PRN PRN Reason: Pain HYDROcodone/APAP 7.5-325MG [[place] 7.5-325] 1 tab PO Q6H PRN PRN Reason: Pain Discharge Medication List Levothyroxine Sodium [Synthroid] 75 mcg PO DAILY 05/10/21 [History] Metoprolol Succinate (ER) [Toprol XL] 25 mg PO DAILY 05/10/21 [History] amLODIPine [Norvasc] 10 mg PO DAILY 05/10/21 [History] Aspirin EC [Ecotrin Low Dose] 81 mg PO DAILY #30 tab 07/11/22 [Rx] Folic Acid 1 mg PO DAILY@1200 tab 07/11/22 [Rx] HYDROcodone/APAP 7.5-325MG [[place] 7.5-325] 1 tab PO Q6H PRN 10/23/22 [History] Ibuprofen [Motrin] 600 mg PO Q6HR PRN 10/23/22 [History] Lactulose [Cephulac] 30 gm PO DAILY #1800 ml 10/25/22 [Rx] Follow up Appointment(s)/Referral(s): Jacob Ku MD [Primary Care Provider] - 1-2 days Carmencita Reddy NPC [REFERRING] - 11/15/22 (Colonoscopy at [facility]. Gastroenterology office will mail directions and send bowel prep to pharmacy. Hospital will call with time for colonoscopy on 11/15/2022.) [facility], [NON-STAFF] - 1 Week Mahin Vargas MD [STAFF PHYSICIAN] - 1 Week Discharge/Stand Alone Forms: AA Meetings [address] - [facility], AA Meetings [facility], Who Do I Call?, Community Resources, Outpatient Counseling, Inp Substance Abuse Facilities Discharge Disposition: TRANSFER TO SNF/ECF
[2022-11-01] MEDS: HEPARIN SODIUM,PORCINE/PF 5,000 UNIT/0.5 ML SYRINGE SQ SCH (08:32)
[2022-11-01] MEDS: ASPIRIN 81 MG PO SCH (08:33)
[2022-11-01] MEDS: PANTOPRAZOLE 40 MG/10 ML VIAL IV SCH (08:33)
[2022-11-01] MEDS: PYRIDOXINE 50 MG TAB PO SCH (08:33)
[2022-11-01] MEDS: METOPROLOL SUCCINATE (ER) 25 MG TAB.ER.24H PO SCH (08:33)
[2022-11-01] MEDS: amLODIPine 10 MG TAB PO SCH (08:33)
[2022-11-01] MEDS: LACTULOSE 20 GM/30 ML CUP PO SCH (08:33)
--- NOTE | 2022-11-01 10:29 | CDI ---
Documentation Clarification Form Date: 11/01/2022 10:03:31 AM From: Mary Ann Myrick RN, CCDS Admit Date: 10/23/2022 5:37:00 PM Patient Name: Josee Mace Visit Number: [id number] Discharge Date: ATTENTION: The Clinical Documentation Specialists (CDI) and [facility] Coding Staff appreciate your assistance in clarifying documentation. Please respond to the clarification below the line at the bottom and electronically sign. The CDI & [facility] Coding staff will review the response and follow-up if needed. Please note: Queries are made part of the Legal Health Record. If you have any questions, please contact the author of this message via ITS. Dr. Jacob Ku The patients principal diagnosis the diagnosis that was chiefly responsible for the admission has not been clearly identified and clarification is requested. History/Risk factors: CVA, GERD, Hypertension, Thyroid disorder, current every day smoker Clinical Indicators: 62-year-old female present with progressive weakness over the past one year. Having difficult with ambulation secondary to weakness. 10/23 VS: 111/76 92 18 98.5 92 % RA 10/23 Lab findings: WBC 9.1 HGB 18.5 HCT 56.8 Na+ 134, CA 125 Antigen 24.2 10/23 CXR: Streak atelectasis right lung base 10/23 CT Brain: No acute intracranial process Treatment: PT/OT Consult IVIG (loading dose) 2 G/KG, divided over 2 days (1 G/KG per day for 2 days). Parenteral Vitamin supplement IV @100 HR 10/24-10/31 In your professional opinion, can you please clarify which diagnosis, after study, was the reason chiefly responsible for the admission? [ X ] CIDP (Chronic Inflammatory Demyelinating Polyneuropathy [ ] Other, please specify [ ] Unable to determine (Template Last Revised: August 2020) MTDD
[2022-11-01] MEDS: FOLIC ACID 1 MG TAB PO SCH (11:42)
[2022-11-01 11:47] VITALS: BP 114/71; PULSE 85; TEMP 98.1
[2022-11-01 12:12] LABS: IgG - CSF 2.6 mg/dL (0.0 - 3.4); IgG/Albumin Index (CSF) 0.53 (0.00 - 0.77); Immunoglobulin G 732 mg/dL (700 - 1600)
--- NOTE | 2022-11-01 15:30 | P.PN ---
Subjective Progress Note Date: 11/01/22 CHIEF COMPLAINT: Abdominal pain HISTORY OF PRESENT ILLNESS: Patient is sitting at bedside chair. Her abdominal pain has improved. The back pain and headache she was experiencing yesterday also improved with heating pads. She is having bowel movements. Denies any nausea vomiting. Tolerating regular diet. Patient still complains of weakness. Patient anticipating possible discharge today. Awaiting insurance authorization Patient seen and examined with Dr. duval PHYSICAL EXAM: VITAL SIGNS: Reviewed. GENERAL: Well-developed in no acute distress. HEENT: No sclera icterus. Extraocular movements grossly intact. Moist buccal mucosa. Head is atraumatic, normocephalic. ABDOMEN: Soft. Nondistended. nontender NEUROLOGIC: Alert and oriented. Cranial nerves II through XII grossly intact. ASSESSMENT: 1. Abdominal pain 2. Right anterior abdominal wall hematoma at trocar site is likely the noted fluid collection on the CAT scan 3. Cholelithiasis 4. Mole in right upper quadrant of abdomen 5. Constipation 6. Daily alcohol use PLAN: -Patient can be discharged from surgical standpoint when medically cleared -Recommend that patient follows up in [address] Duval -No surgical intervention planned on the abdominal wall hematoma -Recommend outpatient removal of mole from abdomen -Further gallbladder workup outpatient Physician [employer] note has been reviewed by physician. Signing provider agrees with the documented findings, assessment, and plan of care. Objective - Vital Signs Vital signs: Vital Signs Temp 98.1 F 11/01/22 11:35 Pulse 85 11/01/22 11:35 Resp 16 11/01/22 11:35 BP 114/71 11/01/22 11:35 Pulse Ox 94 L 11/01/22 11:35 FiO2 21 11/01/22 08:31 Intake & Output 10/31/22 11/01/22 11/01/22 18:59 06:59 18:59 Intake Total 1011.2 2240 Balance 1011.2 2240 Intake: IV 1000 Mvi, Adult No.4 with Vit 1000 K 10 ml Thiamine 100 mg Folic Acid 1 mg In Sodium Chloride 0.9% 1,000 ml @ 100 mls/hr IV .BY DURATION [facility] Rx#: [id number] Intake, IV Titration 1011.2 1000 Amount Mvi, Adult No.4 with Vit 1011.2 K 10 ml Thiamine 100 mg Folic Acid 1 mg In Sodium Chloride 0.9% 1,000 ml @ 100 mls/hr IV .BY DURATION [facility] Rx#: [id number] Sodium Chloride 0.9% 1, 1000 000 ml @ 100 mls/hr IV . BY DURATION [facility] Rx#: [id number] Oral 240 Other: Voiding Method Bedside Commode Bedside Commode Bedside Commode Diaper Diaper Diaper # Voids 2 2 # Bowel Movements 1 - Labs CBC & Chem 7: 10/30/22 05:32 10/30/22 05:32 Labs: Abnormal Lab Results - Last 24 Hours (Table) 10/26/22 Range/Units 16:27 Serum Albumin 2,900 L (3500 - 5200) mg/dL Microbiology - Last 24 Hours (Table) 10/27/22 11:03 CSF Gram Stain - Final Cerebral Spinal Fluid CSF Culture - Final
== END 2022-11-01 15:40 | disposition home health service (06) | DRG 43 ==
LOC: EC 13:54 → 5NMEDONC 17:37
PROVIDERS: ADMIT Family Medicine; ATTEND Family Medicine
PROC: 009U3ZX Drainage of Spinal Canal, Percutaneous Approach, Diagnostic (ICD-10-PCS; principal; 2022-10-27 14:00)
DX: G61.81 Chronic inflammatory demyelinating polyneuritis (principal); E03.9 Hypothyroidism, unspecified; E72.20 Disorder of urea cycle metabolism, unspecified; E78.5 Hyperlipidemia, unspecified; E86.0 Dehydration; K58.1 Irritable bowel syndrome with constipation; F10.20 Alcohol dependence, uncomplicated; F17.210 Nicotine dependence, cigarettes, uncomplicated; G89.29 Other chronic pain; I10 Essential (primary) hypertension; I49.1 Atrial premature depolarization; J98.11 Atelectasis; K70.9 Alcoholic liver disease, unspecified; K76.0 Fatty (change of) liver, not elsewhere classified; K80.20 Calculus of gallbladder without cholecystitis without obstruction; K82.8 Other specified diseases of gallbladder; M47.812 Spondylosis without myelopathy or radiculopathy, cervical region; N39.3 Stress incontinence (female) (male); R62.7 Adult failure to thrive; L76.32 Postprocedural hematoma of skin and subcutaneous tissue following other procedure; Y83.8 Other surgical procedures as the cause of abnormal reaction of the patient, or of later complication, without mention of misadventure at the time of the procedure; Z79.82 Long term (current) use of aspirin; Z79.890 Hormone replacement therapy; Z79.899 Other long term (current) drug therapy; Z86.73 Personal history of transient ischemic attack (TIA), and cerebral infarction without residual deficits; Z91.199 Patient's noncompliance with other medical treatment and regimen due to unspecified reason; Z96.651 Presence of right artificial knee joint; Z88.0 Allergy status to penicillin
CPT/HCPCS: 36415; 62270; 70450; 71046; 74177; 78226; 80048; 80053; 80076; 80320; 81003; 82040; 82042; 82085; 82140; 82164; 82550; 82607; 82784; 82945; 83605; 83735; 83873; 83916; 83921; 84132; 84157; 84165; 84207; 84443; 84484; 85025; 85610; 85730; 86038; 86235; 86304; 86334; 87070; 87205; 88108; 89050; 93005; 94760

== ENCOUNTER 2022-11-15 07:45 | Day surgery (SDC) | payer OTHER ==
[2022-11-11 15:25] VITALS: BMI 26.6
[~2022-11-15 07:45] MED LIST: LACTATED RINGERS 1,000 ML IV SCH
[2022-11-15 08:50] VITALS: RESP 16; TEMP 97
[2022-11-15] MEDS ORDERED: LIDOCAINE 2% INJ 20 MG/ML (2 ML VIAL) ONE (09:41)
[2022-11-15] MEDS ORDERED: PROPOFOL 10 MG/ML 20 ML VIAL IV ONE (09:41)
--- NOTE | 2022-11-15 09:58 | P.PCN ---
Date of Procedure: 11/15/22 Procedure(s) Performed: BRIEF HISTORY: Patient is a 62-year-old pleasant 8 female scheduled for an elective colonoscopy as a part of evaluation of change in bowel habits for the last several months duration. PROCEDURE PERFORMED: Colonoscopy with biopsy and snare polypectomy. PREOPERATIVE DIAGNOSIS: Change in bowel habits. IV sedation per Anesthesia. PROCEDURE: After informed consent was obtained, the patient, was brought into the endoscopy unit. IV sedation was administered by Anesthesia under continuous monitoring. Digital rectal examination was normal. Initially the Olympus CF-160 flexible video colonoscope was then inserted in the rectum, gradually advanced into the cecum without any difficulty. Careful examination was performed as the scope was gradually being withdrawn. Ileocecal valve and the appendiceal orifice were visualized and appeared normal. Prep was excellent. Mucosa of the cecum had 3-4 mm sessile polyp removed by cold biopsy. Ascending colon there was a 1 cm polyp removed by snare polypectomy. Rest of the ascending colon, transverse colon, descending colon, sigmoid colon, and rectum appeared normal. Retroflexion was performed in the rectum and no lesions were seen. The patient tolerated the procedure well. IMPRESSION: 3-4 mm cecal polyp status post cold biopsy 1 cm ascending colon polyp status post polyp that. RECOMMENDATIONS: Findings of this examination were discussed with the patient as well as a family. She was advised to follow with the biopsy results. If the biopsy reveals adenoma she can have a repeat colonoscopy in 3 years.
[2022-11-15 10:24] VITALS: BP 116/76; PULSE 95
== END 2022-11-15 10:45 | disposition home or self-care (01) ==
LOC: ORWHC2ENDO 07:45
PROVIDERS: ATTEND Internal Medicine Gastroenterology
DX: D12.0 Benign neoplasm of cecum (principal); D12.2 Benign neoplasm of ascending colon; I10 Essential (primary) hypertension; Z86.73 Personal history of transient ischemic attack (TIA), and cerebral infarction without residual deficits; Z79.82 Long term (current) use of aspirin; Z79.899 Other long term (current) drug therapy; Z88.0 Allergy status to penicillin
CPT/HCPCS: 88305; 45385; J2704; J2001

== ENCOUNTER 2022-12-14 08:00 | Day surgery (SDC) | payer OTHER ==
[2022-12-07 11:31] VITALS: BMI 24.4
[~2022-12-14 08:00] MED LIST changes: +ACETAMINOPHEN TAB 500 MG TAB PO PRN; +DEXAMETHASONE SOD PHOSPHATE 4 MG/ML 1 ML VIAL IV ONE; +HEPARIN SODIUM,PORCINE/PF 5,000 UNIT/0.5 ML SYRINGE SQ PRN; +LIDOCAINE 1% (10MG/ML) FOR IV START INTRADERMA PRN; +MIDAZOLAM 2 MG/2 ML VIAL IV PRN; +ONDANSETRON 4 MG/2 ML VIAL IVP ONE
[2022-12-14] MEDS ORDERED: LIDOCAINE 2% INJ 20 MG/ML (2 ML VIAL) ONE (10:17)
[2022-12-14] MEDS ORDERED: SUCCINYLCHOLINE CHLORIDE 200 MG/10 ML VIAL IV ONE (10:17)
[2022-12-14] MEDS ORDERED: GLYCOPYRROLATE 0.2 MG/ML 2 ML VIAL ONE (10:17)
[2022-12-14] MEDS ORDERED: fentaNYL (PF) 50 MCG/ML 2 ML AMP ONE (10:17)
[2022-12-14] MEDS ORDERED: ROCURONIUM 10 MG/ML (5 ML VIAL) IV ONE (10:17)
[2022-12-14] MEDS ORDERED: MIDAZOLAM 2 MG/2 ML VIAL ONE (10:17)
[2022-12-14] MEDS ORDERED: KETOROLAC 15 MG/ML 1 ML VIAL ONE (10:17)
[2022-12-14] MEDS ORDERED: NEOSTIGMINE 1 MG/ML 10 ML VIAL ONE (10:17)
[2022-12-14] MEDS ORDERED: PROPOFOL 10 MG/ML 20 ML VIAL IV ONE (10:17)
[2022-12-14] MEDS ORDERED: BUPIVACAINE (PF) 0.25% 30 ML VIAL SQ ONE (10:46)
[2022-12-14 11:27] VITALS: TEMP 96.8
[2022-12-14] MEDS: HYDROmorphone 0.5 MG/0.5 ML SYRINGE IVP PRN ×2 (11:51→12:11)
[2022-12-14] MEDS ORDERED: droPERidol 5 MG/2 ML VIAL IVP ONE (12:18)
--- NOTE | 2022-12-14 12:36 | P.OP ---
Date of Procedure: 12/14/22 Preoperative Diagnosis: Cholecystitis Postoperative Diagnosis: Cholecystitis Procedure(s) Performed: Laparoscopic cholecystectomy Anesthesia: NADIYA Surgeon: Mahin Vargas Estimated Blood Loss (ml): 5 Pathology: other (Gallbladder) Condition: stable Disposition: PACU Description of Procedure: The patient was placed on the operating table. The patient received a general endotracheal tube anesthesia. The patients abdomen was prepped and draped in the usual sterile fashion. Through an infraumbilical stab incision, the fascia of the anterior abdominal wall was grasped with a pair of Kochers and then the Veress needle was placed in the peritoneal cavity. Position of the Veress needle was confirmed with positive drop test. The abdomen was then insufflated. After adequate insufflation, the 10 mm trocar was placed in the peritoneal cavity. Following this the laparoscope was placed in the peritoneal cavity. The patient was placed in the head-up, right side up position and then a 5 mm trocar was placed in the right lateral and right subcostal position under direct visualization. A 8 mm trocar was placed in the epigastric position. The gallbladder was grasped in the fundus and infundibulum. Traction on the gallbladder was placed in the lateral and the cephalad positions. The triangle of Calot was visualized.. The cystic duct was bluntly dissected until the union of the cystic duct and common bile duct was seen. A critical view of safety was achieved. The cystic duct was then divided and sealed with the Harmonic scissors. A PDS Endoloop was then placed throughout the cystic duct stump. The cystic artery divided and sealed with the Harmonic scissors. The gallbladder was then removed from the liver bed using Harmonic scissors. The gallbladder was then extracted through the epigastric port site. Operative field was checked for any bleeding spots and Harmonic scissors was used to coagulate the liver bed. The abdomen was irrigated. The trocars were removed. The skin was closed using interrupted 3-0 Vicryl suture. Dermabond dressing were applied. The patient tolerated the procedure well.
[2022-12-14 12:56] VITALS: RESP 16
[2022-12-14 13:49] VITALS: BP 111/65; PULSE 74
== END 2022-12-14 14:01 | disposition home or self-care (01) ==
LOC: OR 08:00
PROVIDERS: ATTEND Surgery
DX: K80.10 Calculus of gallbladder with chronic cholecystitis without obstruction (principal); I10 Essential (primary) hypertension; K21.9 Gastro-esophageal reflux disease without esophagitis; Z82.49 Family history of ischemic heart disease and other diseases of the circulatory system; F17.200 Nicotine dependence, unspecified, uncomplicated; Z88.0 Allergy status to penicillin; Z86.73 Personal history of transient ischemic attack (TIA), and cerebral infarction without residual deficits; Z79.899 Other long term (current) drug therapy
CPT/HCPCS: 47562; J2250; J0330; J1100; J2710; J0690; J2405; J3010; J1885; J2704; J1170; J1790; J1644; J2001; 88304